=== PATIENT | female | born 1985 | race Caucasian/White ===

== ENCOUNTER 2017-03-25 23:28 | Emergency (ER) | payer SELFPAY ==
[2017-03-25 23:33] VITALS: RESP 18
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
[2017-03-26] MEDS ORDERED: CEPHALEXIN 500 MG CAP PO ONE (00:26)
[2017-03-26] MEDS ORDERED: IBUPROFEN 600 MG TAB PO ONE (00:26)
[2017-03-26] MEDS ORDERED: CEPHALEXIN 500MG PREPACK#4 BTL TAKEHOME ONE (01:25)
[2017-03-26 02:19] VITALS: BP 122/80; PULSE 88; TEMP 98.6; O2SAT 94
== END 2017-03-26 02:18 | disposition home or self-care (01) ==
DX: S69.92XA Unspecified injury of left wrist, hand and finger(s), initial encounter (principal); S30.810A Abrasion of lower back and pelvis, initial encounter; L03.119 Cellulitis of unspecified part of limb; Y04.8XXA Assault by other bodily force, initial encounter
CPT/HCPCS: L3807

== ENCOUNTER 2018-05-26 02:15 | Emergency (ER) | payer MEDICAID, OTHER ==
--- NOTE | 2018-05-26 02:23 | CPEKG ---
Heart Rate: 112 RR Interval: 536 P-R Interval: 132 QRSD Interval: 76 QT Interval: 328 QTC Interval: 448 P [place]: 59 QRS [place]: 61 T Wave [place]: 46 EKG Severity - BORDERLINE ECG - EKG Impression: SINUS TACHYCARDIA EKG Impression: PROBABLE LEFT ATRIAL ABNORMALITY Electronically Signed By: Sarah Rudolph 26-May-2018 07:45:54
[2018-05-26 04:03] LABS: PLATELET COUNT 294 10^3/uL (150-400)
[2018-05-26] MEDS ORDERED: NS 1,000 ML IV ONE (05:29)
--- NOTE | 2018-05-26 05:33 | EDPHY ---
H & P Stated Complaint: CP for one week Source: Patient - Personal History LMP (Females 10-55): 15-21 Days Ago Current Tetanus/Diphtheria Vaccine: Yes Current Tetanus Diphtheria and Acellular Pertussis (TDAP): Yes - Medical/Surgical History Hx Asthma: No Hx Chronic Respiratory Disease: No Hx Diabetes: No Hx Cardiac Disease: No Hx Renal Disease: No Hx Cirrhosis: No Hx Alcoholism: No Hx HIV/AIDS: No Hx Splenectomy or Spleen Trauma: No Other PMH: ABEBE, HYPERTHYROID, meth abuse, cleft surgery - Social History Smoking Status: Current every day smoker Time Seen by Provider: 05/26/18 05:20 HPI/ROS: HPI The patient presents with chest pain which has been present for the last 4-5 months though has been worse over the last 1 week. She describes a left-sided chest pain near her axilla which is intermittent, sharp in nature, pleuritic, and also worse when she coughs or sneezes. She before had the pain only on occasion, now she is having the pain daily. It is associated with shortness of breath. She does use meth and injects it. She used just prior to arrival. She has not had any fevers that she is aware of. REVIEW OF SYSTEMS Constitutional: No fever, no chills. Eyes: No discharge. ENT: No sore throat. Cardiovascular: Positive for chest pain, no palpitations. Respiratory: See HPI Gastrointestinal: No abdominal pain, no vomiting. Genitourinary: No hematuria. Musculoskeletal: No back pain. Skin: No rashes. Neurological: No headache. PMHx: History of hyperthyroidism, history of cholecystectomy Soc Hx: IV meth use, heavy cigarette smoker PHYSICAL General Appearance: Alert, no distress Eyes: Pupils equal and round no pallor or injection ENT, Mouth: Mucous membranes moist Respiratory: There are no retractions, lungs are clear to auscultation Cardiovascular: Tachycardic rate and regular rhythm, there is no chest wall tenderness Gastrointestinal: Abdomen is soft and non-tender, no masses, bowel sounds normal Neurological: A&O, moves all extremities Skin: Warm and dry, no rashes Musculoskeletal: Neck is supple non tender Extremities: symmetrical, full range of motion Psychiatric: Patient is oriented X 3, there is no agitation (Riguzzi,Sarah) Constitutional: Initial Vital Signs Temperature (C) 37.0 C 05/26/18 02:15 Heart Rate 125 H 05/26/18 02:15 Respiratory Rate 16 05/26/18 02:15 Blood Pressure 135/101 H 05/26/18 02:15 O2 Sat (%) 97 05/26/18 02:15 O2 Delivery Mode Room Air Allergies/Adverse Reactions: amoxicillin [From Augmentin] Allergy (Verified 05/26/18 02:24) azithromycin Allergy (Verified 05/26/18 02:24) clavulanic acid [From Augmentin] Allergy (Verified 05/26/18 02:24) Home Medications: Medication Instructions Recorded NK [No Known Home Meds] 05/26/18 Medical Decision Making - Diagnostics Imaging: I viewed and interpreted images myself - Diagnostics EKG Interpretation: EKG: Complete interpretation has been separately recorded in the [facility] archive. Summary impression: Sinus tachycardia (Sarah Rudolph) Imaging Results: Chest x-ray two views shows no effusion, no infiltrate, no cardiomegaly, interpreted by me, radiology interpretation is pending. (Sarah Rudolph) Differential Diagnosis: This is a 33-year-old female with history of methamphetamine abuse IV who presents brought in by ambulance for 1 week of worsening pleuritic, sharp, left- sided chest pain associated with shortness of breath. On arrival here, she is tachycardic though she did just used meth prior to arrival. Other vital signs are normal. She does not have any chest wall tenderness, heart and lung exams are benign. Differential diagnosis includes ACS, PE, dissection, GERD, costochondritis, pericarditis, less likely endocarditis given no fever or constitutional symptoms. In the emergency department, patient was started on IV fluids. Labs were checked. EKG and chest x-ray were unremarkable. D-dimer was positive. I placed an ultrasound-guided right-sided peripheral IJ. Plan for her to undergo CT PE protocol. At 7:00 a.m., the case is signed out to the oncoming provider Dr. Hicks. He will follow up on the patient's studies. (Sarah Rudolph) Other Provider: 07: Chest CTA shows mediastinal mass. I discussed case with radiologist, who feels this does not appear consistent with infection, much more likely to be oncologic process. I counseled patient regarding this finding and need for close outpatient follow-up extensively. I consulted our family preservation caseworker who has assisted patient in getting a follow-up PCP appointment. I think she is safe for outpatient management. (Edgar Hicks) - Data Points Laboratory Results: Laboratory Results 05/26/18 03:15 05/26/18 03:15 Medications Given: Discontinued Medications Sodium Chloride (Ns) 1,000 mls @ 0 mls/hr IV EDNOW ONE; Wide Open PRN Reason: Protocol Stop: 05/26/18 05:30 Last Admin: 05/26/18 05:48 Dose: 1,000 mls Departure - Departure Disposition: Home, Routine, Self-Care Clinical Impression: Mediastinal mass Chest pain Qualifiers: Chest pain type: unspecified Qualified Code(s): R07.9 - Chest pain, unspecified Condition: Good Additional Instructions: You have a follow up appointment scheduled for May 31 at 2:50PM with Sandy MAN at [facility]: [facility] Please arrive on time Bring any medications you are taking with you Check in at the green pod Please call chaim if you need to reschedule your appointment Referrals: NONE *PRIMARY CARE P,. [Primary Care Provider] - As per Instructions Christiano Dutton MD [Medical Doctor] - As per Instructions
[2018-05-26] MEDS ORDERED: IOPAMIDOL (ISOVUE 370) 100 ML BTL IV ONE (06:26)
[2018-05-26 10:21] VITALS: BP 114/78
--- NOTE | 2018-05-26 11:07 | ASMTCMCOM ---
CM Note CM Note Notes: Met with patient to discuss follow up care. Chart reviewed (see ER report). Patient is open about her IV drug use and tells me she has been using methamphetamine since she was 17. Patient is currently living in [place] with her who she tells me is very supportive. 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 I encouraged patient to establish a primary care provider for follow up and support. I have scheduled an appointment with MAGDA Warren at [facility] for June 09 at 2:50 PM. Patient confirms that she will make it to this appointment and has been provided contact information Date Signed: 05/26/2018 11:06 AM Electronically Signed By:Nicolasa Santamaria RN
== END 2018-05-26 10:46 | disposition home or self-care (01) ==
LOC: EDUNIT#
DX: J98.59 Other diseases of mediastinum, not elsewhere classified (principal); E86.9 Volume depletion, unspecified; F17.210 Nicotine dependence, cigarettes, uncomplicated
CPT/HCPCS: Q9967

== ENCOUNTER 2018-07-29 17:43 | Emergency (ER) | payer MEDICAID, OTHER ==
--- NOTE | 2018-07-29 18:15 | EDPHY ---
HPI/HX/ROS/PE/MDM Narrative: CHIEF COMPLAINT: Upper left chest pain HISTORY OF PRESENT ILLNESS: The patient is a 33 y/o female with a history of a mediastinal mass, cholecystectomy, and prior methamphetamine use complaining of worsening upper left chest pain, cough, fevers and night sweats. On May 26, 2 months ago, she developed chest pain and shortness of breath. Due to these symptoms she presented to the emergency department had had a chest CT which revealed a mediastinal mass. She was advised to follow up with several physicians which she has not done. Since being diagnosed with the mass, she has stopped using meth. However, she has noticed bleeding from her gums and more frequent bloody noses. She has also felt fatigued and short of breath while exerting herself. Her cough has worsened, but she denies coughing anything up. Yesterday she noticed a swollen and painful lymph node on the left side of neck. This morning she vomited once and developed a subjective low grade fever. This morning she took ibuprofen with mild relief of her symptom. She denies abdominal pain, feeling faint, heart palpitations, or sore throat. No chills, palpitations, diarrhea, urinary complaints, headache, lightheadedness. REVIEW OF SYSTEMS: Aside from elements discussed in the HPI, a comprehensive 10 system review of systems was reviewed and is negative. PAST MEDICAL HISTORY: Cholecystectomy, hyperthyroidism, cleft surgery, mediastinal mass SOCIAL HISTORY: Friend at bedside, smokes tobacco and occasionally uses marijuana, denies consuming alcohol VITAL SIGNS: Reviewed by me GENERAL: Tearful, anxious, well-developed, well-nourished, in no respiratory distress. HEENT: Atraumatic. Eyes: No icterus, no injection. Mouth: moist mucous membranes. No erythema or lesions. Neck: supple, large lymph node in left supraclavicular fossa. LUNGS: Clear to auscultation bilaterally, no wheezes, rhonchi or rales. CARDIAC: Tachycardic into the 120's, no rubs, murmurs or gallops. ABDOMEN: LUQ tenderness, soft, nondistended, bowel sounds normal. BACK: No CVA tenderness. EXTREMITIES: No trauma. No edema. Range of motion is normal throughout. NEURO: Alert and oriented, grossly nonfocal. SKIN: Warm and dry, no rash. PSYCHIATRIC: Normal mentation, no agitation. Portions of this note were transcribed by a medical records specialist. I personally performed a history, physical exam, medical decision making, and confirmed accuracy of information the transcribed note. ED Course: The patient is a 33 y/o female with a history of a mediastinal mass, cholecystectomy, and prior methamphetamine use complaining of worsening upper left chest pain, cough, fevers, night sweats, and vomiting. On exam she has a large lymph node sitting in left supraclavicular fossa as well as left upper quadrant tenderness. Labs, EKG, and chest x-ray ordered; 1L IV NS administered. 1928: 12-LEAD EKG: Please see the full report in [facility]. My interpretation: Sinus tachycardia with a rate of 108, borderline T wave abnormalities. 1954: I spoke with the radiologist who reports that the patient's chest x-ray reveals a left lower lobe pneumonia and a pleural effusion. Mediastinal mass appears unchanged from prior studies. 750mg PO Levaquin administered. 2009: Reassessed patient and discussed laboratory and imaging studies. She reports ongoing discomfort the left upper chest. 30mg IV Toradol and 1L IV NS administered. 2034: I consulted with the Sandy Melchor, the on-call physician at [facility] , regarding this patient. They will see patient in follow-up for both the mediastinal mass as well as for the pneumonia. 2044: Reassessed patient and discussed follow up with [facility]. I have advised her to use Tylenol and ibuprofen. I have also prescribed her Albuterol and Levaquin. Return precautions provided; patient is comfortable with this plan. MDM: Differential diagnosis for the patient's shortness of breath was considered including but not limited to pulmonary infectious processes, asthma exacerbation , cardiac causes, pulmonary emboli, pulmonary edema, congestive heart failure. - Data Points Imaging Results: CXR: Impression: 1. Patchy infiltrate left lower lobe or small left pleural effusion suspicious for pneumonia. 2. Large mediastinal mass, similar to previous exam. Dictated By: Sebastian Mathis MD Imaging: Discussed imaging studies w/ doubler helper Radiologist, I viewed and interpreted images myself Laboratory Results: Laboratory Results 07/29/18 19:10 07/29/18 19:10 Medications Given: Discontinued Medications Sodium Chloride (Ns) 1,000 mls @ 0 mls/hr IV EDNOW ONE; Wide Open PRN Reason: Protocol Stop: 07/29/18 18:33 Last Admin: 07/29/18 19:25 Dose: 1,000 mls Sodium Chloride (Ns) 1,000 mls @ 0 mls/hr IV ONCE ONE PRN Reason: Wide Open Stop: 07/29/18 20:23 Last Admin: 07/29/18 20:30 Dose: 1,000 mls Ketorolac Tromethamine (Toradol) 30 mg IVP ONCE ONE Stop: 07/29/18 20:30 Last Admin: 07/29/18 20:31 Dose: 30 mg Levofloxacin (Levaquin) 750 mg PO EDNOW ONE PRN Reason: Protocol Stop: 07/29/18 20:18 Last Admin: 07/29/18 20:30 Dose: 750 mg Point of Care Test Results: Chemistry 07/29/18 19:33 POC Troponin I 0.03 ng/mL ng/mL (0.00-0.08) General Time Seen by Provider: 07/29/18 17:58 Initial Vital Signs: Initial Vital Signs Temperature (C) 37.1 C 07/29/18 17:49 Heart Rate 132 H 07/29/18 17:49 Respiratory Rate 16 07/29/18 17:49 Blood Pressure 137/110 H 07/29/18 17:49 O2 Sat (%) 96 07/29/18 17:49 O2 Delivery Mode Room Air O2 (L/minute) 2 Allergies/Adverse Reactions: amoxicillin [From Augmentin] Allergy (Verified 07/29/18 17:49) azithromycin Allergy (Verified 07/29/18 17:49) clavulanic acid [From Augmentin] Allergy (Verified 07/29/18 17:49) Home Medications: Medication Instructions Recorded Albuterol [Proventil Inhaler HFA 1 - 2 puffs IH Q4H #1 mdi 07/29/18 (*)] Ibuprofen 07/29/18 Ibuprofen 600 mg PO TID #20 tablet 07/29/18 levOFLOXACIN [Levofloxacin] 750 mg PO DAILY #7 tablet 07/29/18 Departure - Departure Disposition: Home, Routine, Self-Care Clinical Impression: Pleural effusion, Mediastinal mass Pneumonia Qualifiers: Pneumonia type: due to unspecified organism Laterality: left Lung location: lower lobe of lung Qualified Code(s): J18.1 - Lobar pneumonia, unspecified organism Condition: Good Instructions: Pleural Effusion (ED), Pneumonia (ED) Additional Instructions: Follow up with [facility]. I spoke with a provider at [facility] and they are aware of your CT findings including the mediastinal mass and your pneumonia. They are expecting a call from you in order to arrange further evaluation. You may use ibuprofen 600 mg tablets up to 3 times a day for chest discomfort. You been given a prescription for an albuterol meter dose inhaler. Please use this as needed to help control your cough. This will also help with any wheezing. Please take Tylenol as needed for any fevers. Return to the emergency department or seek care urgently if your worsening despite the above treatments, especially if you develop high fevers not responsive to Tylenol or ibuprofen, coughing significantly, shortness of breath , vomiting, or other concerns. Referrals: [facility],. [Clinic] - As per Instructions Prescriptions: Albuterol [Proventil Inhaler HFA (*)] 1 - 2 puffs IH Q4H #1 mdi Ibuprofen 600 mg PO TID #20 tablet levOFLOXACIN [Levofloxacin] 750 mg PO DAILY #7 tablet Report Scribed for: Candie Murray Report Scribed by: Nuvia Cuevas Date of Report: 07/29/18 Time of Report: 18:15
[2018-07-29] MEDS ORDERED: NS 1,000 ML IV ONE ×2 (18:32→20:22)
[2018-07-29 19:24] LABS: PLATELET COUNT 311 10^3/uL (150-400)
[2018-07-29] MEDS ORDERED: KETOROLAC 30 MG/1 ML SDV ONE (20:28)
[2018-07-29] MEDS ORDERED: KETOROLAC 30 MG/1 ML SDV IVP ONE (20:29)
[2018-07-29 21:01] VITALS: BP 114/78
--- NOTE | 2018-07-30 00:02 | CPEKG ---
Test Reason : OPEN Blood Pressure : / mmHG Vent. Rate : 108 BPM Atrial Rate : 108 BPM P-R Int : 146 ms QRS Dur : 082 ms QT Int : 340 ms P-R-T Axes : 060 065 042 degrees QTc Int : 456 ms Sinus tachycardia Borderline T wave abnormalities Confirmed by Candie Murray ([id number]) on 07/30/2018 12:01:18 AM Referred By: Confirmed By:Candie Murray
== END 2018-07-29 21:02 | disposition home or self-care (01) ==
DX: J18.9 Pneumonia, unspecified organism (principal); F17.210 Nicotine dependence, cigarettes, uncomplicated; E03.9 Hypothyroidism, unspecified
CPT/HCPCS: 84484-PO; 96374; J1885

== ENCOUNTER → 2018-08-23 | Outpatient (CLI) | payer MEDICAID ==
[~2018-08-23] MED LIST: LIDOCAINE 1% 300 MG/30 ML SDV ONE
== END ==
LOC: FIMAGING 11:54
PROVIDERS: ATTEND Internal Medicine Hematology & Oncology
PROC: 07B23ZX Excision of Left Neck Lymphatic, Percutaneous Approach, Diagnostic (ICD-10-PCS; principal; 2018-08-23)
DX: C81.11 Nodular sclerosis Hodgkin lymphoma, lymph nodes of head, face, and neck (principal)
CPT/HCPCS: 88184-90; 88185-91

== ENCOUNTER → 2018-09-13 | Day surgery (SDC) | payer MEDICAID | LOC: FIMAGING 08:50 | PROVIDERS: ATTEND Internal Medicine Hematology & Oncology | DX: C81.02 Nodular lymphocyte predominant Hodgkin lymphoma, intrathoracic lymph nodes (principal) | CPT/HCPCS: 36569; 76937; 77001; C1751 ==

== ENCOUNTER 2018-09-17 07:33 | Emergency (ER) | payer MEDICAID ==
--- NOTE | 2018-09-17 07:37 | EDPHY ---
HPI/HX/ROS/PE/MDM Narrative: CHIEF COMPLAINT: Hematemesis HPI: This patient is a 33 year old female with history of stage IV Hodgkin's lymphoma. She arrives via EMS following one episode of hematemesis with bright red blood [facility] about 55 minutes prior to arrival. The patient states she did not note a "significant amount" of blood, but its presence concerned her enough to seek care. She has not had any further episodes of hematemesis. She denies hematochezia or melena. She denies ever having gastrointestinal bleeding in the past. The patient is due to start chemotherapy for Hodgkin's lymphoma in the next week. She denies any fever, chest pain, shortness of breath, diarrhea, urinary complaints, or other associated symptoms. REVIEW OF SYSTEMS: A comprehensive 10 system review of systems is otherwise negative aside from elements mentioned in the history of present illness and medical decision making. PMH: Stage IV Hodgkin's lymphoma. Hyperthyroid. History of IV drug abuse (last in 04/2018). Hepatitis C. SOCIAL HISTORY: Transient. Single. Lives in [place]. PHYSICAL EXAM: General:Patient is alert, in no acute distress. ENT:Eyes are normal to inspection. ENT inspection normal. Neck: Normal inspection. Full range of motion. Respiratory:No respiratory distress. Breath sounds normal bilaterally. Cardiovascular: Regular rate and rhythm. Strong peripheral pulses. Normal cap refill. Abdomen:The abdomen is nontender to palpation. There are no peritoneal signs. There are normal bowel sounds. Back: Normal to inspection. No tenderness to palpation. Skin: Normal color. No rash. Warm and dry. Extremities: RUE PICC placed. Normal appearance. Full range of motion. Neuro: Oriented x3. Normal motor function. Normal sensory function. ED Course: This patient is a 33 year old female with Hodgkin's lymphoma who presents following one episode of vomiting with a small amount of associated blood. Exam largely unremarkable. Plan for labs including CBC with manual diff, chemistries , and coag panel. Labs largely unremarkable. Plan for PO challenge. If she tolerates this well, plan to discharge home in good condition. She is currently feeling well. Patient tolerated PO challenge. Plan to discharge home as above. Follow up and return precautions discussed. She is comfortable with this plan. MDM: This patient presents with a single episode of vomiting which she describes as containing a small amount of blood. She denies any stool changes or abdominal pain. Exam, vitals and Hct are normal here in the ED - she has had no further episodes of vomiting in the ED and is tolerating PO without difficulty. Clearly she is at elevated risk for complication given lymphoma, but I see no sign of coagulation abnormality or anemia. I think she is safe for discharge and close outpatient follow-up. - Data Points Laboratory Results: Laboratory Results 09/17/18 07:56 09/17/18 07:56 09/17/18 09/17/18 09/17/18 07:56 07:56 07:56 WBC 5.38 10^3/uL 10^3/uL (3.80-9.50) RBC 3.99 10^6/uL L 10^6/uL (4.18-5.33) Hgb 11.7 g/dL L g/dL (12.6-16.3) Hct 35.4 % L % (38.0-47.0) MCV 88.7 fL fL (81.5-99.8) MCH 29.3 pg pg (27.9-34.1) MCHC 33.1 g/dL g/dL (32.4-36.7) RDW 13.2 % % (11.5-15.2) Plt Count 343 10^3/uL 10^3/uL (150-400) MPV 9.1 fL fL (8.7-11.7) Neut % (Auto) Not Reported Lymph % (Auto) Not Reported [place] % (Auto) Not Reported Eos % (Auto) Not Reported Baso % (Auto) Not Reported Nucleat RBC Rel Count Not Reported Absolute Neuts (auto) Not Reported Absolute Lymphs (auto) Not Reported Absolute Monos (auto) Not Reported Absolute Eos (auto) Not Reported Absolute Basos (auto) Not Reported Absolute Nucleated RBC Not Reported Immature Gran % Not Reported Seg Neutrophils % 82.0 % % Band Neutrophils % 0.0 % % Lymphocytes % 7.0 % % Monocytes % 6.0 % % Eosinophils % 4.0 % % Basophils % 0.0 % % Metamyelocytes % 0.0 % % Myelocytes % 1.0 % % Promyelocytes % 0.0 % % Blast Cells % 0.0 % % Immature Gran # Not Reported Absolute Seg Neuts 4.41 10^3/uL 10^3/uL (1.70-6.50) Absolute Band Neuts 0.00 10^3/uL 10^3/uL (0.00-0.70) Absolute Lymphocytes 0.38 10^3/uL L 10^3/uL (1.00-3.00) Absolute Monocytes 0.32 10^3/uL 10^3/uL (0.30-0.80) Absolute Eosinophils 0.22 10^3/uL 10^3/uL (0.03-0.40) Absolute Basophils 0.00 10^3/uL L 10^3/uL (0.02-0.10) Absolute Metamyelocyte 0.00 10^3/mL 10^3/mL (0.00-0.00) Absolute Myelocytes 0.05 10^3/mL H 10^3/mL (0.00-0.00) Absolute Promyelocytes 0.00 10^3/uL 10^3/uL (0.00-0.00) Absolute Plasma Cells 0.00 10^3/uL 10^3/uL (0.00-0.00) Nucleated RBCs 0 /100 WBC /100 WBC (0-0) RBC/WBC/PLT Morphology NORMAL (NORMAL) Absolute Blast Cells 0.00 10^3/uL 10^3/uL (0.00-0.00) Plasma Cells % 0.0 % % Platelet Estimate ADEQUATE (ADEQ) PT 13.6 SEC SEC (12.0-15.0) INR 1.02 (0.83-1.16) APTT 25.2 SEC SEC (23.0-38.0) Sodium 140 mEq/L mEq/L (135-145) Potassium 4.0 mEq/L mEq/L (3.3-5.0) Chloride 109 mEq/L mEq/L (97-110) Carbon Dioxide 20 mEq/l L mEq/l (22-31) Anion Gap 11 mEq/L mEq/L (6-14) BUN 18 mg/dL mg/dL (7-23) Creatinine 0.7 mg/dL mg/dL (0.6-1.0) Estimated GFR > 60 Glucose 136 mg/dL H mg/dL (70-100) Calcium 9.0 mg/dL mg/dL (8.5-10.4) General Time Seen by Provider: 10/27/18 07:36 Initial Vital Signs: Initial Vital Signs Temperature (C) 36.9 C 09/17/18 07:39 Heart Rate 117 H 09/17/18 07:39 Respiratory Rate 16 09/17/18 07:39 Blood Pressure 138/88 H 09/17/18 07:39 O2 Sat (%) 94 09/17/18 07:39 O2 Delivery Mode Room Air Allergies/Adverse Reactions: amoxicillin [From Augmentin] Allergy (Verified 09/17/18 07:45) azithromycin Allergy (Verified 09/17/18 07:45) clavulanic acid [From Augmentin] Allergy (Verified 09/17/18 07:45) Home Medications: Medication Instructions Recorded Albuterol [Proventil Inhaler HFA 1 - 2 puffs IH Q4H #1 mdi 07/29/18 (*)] Ibuprofen 07/29/18 Ibuprofen 600 mg PO TID #20 tablet 07/29/18 levOFLOXACIN [Levofloxacin] 750 mg PO DAILY #7 tablet 07/29/18 Departure - Departure Disposition: Home, Routine, Self-Care Clinical Impression: Vomiting Condition: Good Instructions: Acute Nausea and Vomiting (ED) Additional Instructions: Follow up with your primary care provider. Return to the emergency department for fever, uncontrollable vomiting or diarrhea, blood in your vomit or stool, dark tarry stools, weakness, chest pain , shortness of breath, or other worsening of condition. Referrals: [facility],. [Clinic] - As per Instructions Dc Hair MD [[facility] [place]] - As per Instructions Report Scribed for: Edgar Hicks Report Scribed by: Seema Orozco Date of Report: 09/17/18 Time of Report: 07:36 Physician Review and Approval Statement: Portions of this note were transcribed by an ED scribe. I personally performed the history, physical exam, and medical decision making; and confirm the accuracy of the information in the transcribed note.
[2018-09-17 08:17] LABS: PLATELET COUNT 343 10^3/uL (150-400)
[2018-09-17 08:25] LABS: INR 1.02 (0.83-1.16); PROTIME(PATIENT) 13.6 SEC (12.0-15.0)
[2018-09-17 09:27] VITALS: BP 138/100
== END 2018-09-17 09:26 | disposition home or self-care (01) ==
LOC: EDUNIT#
DX: R11.10 Vomiting, unspecified (principal); C85.90 Non-Hodgkin lymphoma, unspecified, unspecified site; E03.9 Hypothyroidism, unspecified; B19.20 Unspecified viral hepatitis C without hepatic coma; Z59.0 Homelessness

== ENCOUNTER 2018-12-15 14:25 | Inpatient (IN) | payer MEDICAID ==
[2018-12-15] MEDS ORDERED: NS 2,400 ML IV ONE (14:40)
--- NOTE | 2018-12-15 14:44 | EDPHY ---
H & P Stated Complaint: body aches, cough Time Seen by Provider: 12/15/18 14:30 HPI/ROS: CHIEF COMPLAINT: Body aches, chills, dry, HISTORY OF PRESENT ILLNESS: The patient is a 33-year-old homeless female recently diagnosed with stage IV Hodgkin's lymphoma currently receiving chemotherapy. She missed her most recent round of chemotherapy so her last dose was about a month ago. She is followed by Dr. Stacy. She also has a PICC line in place and history of IV drug abuse. This morning she woke up and noticed that the cap of the PICC line was off. 2 days ago she developed body aches chills and sweats. Mild dry cough, no shortness of breath. No chest pain. No nausea vomiting or diarrhea. No urinary symptoms. No rashes. No upper respiratory symptoms. She denies recent drug use or any misuse of the PICC line. Severity: Moderate Modifying factors: None REVIEW OF SYSTEMS: Constitutional: See HPI EENTM: denies: blurred vision, double vision, nose congestion Respiratory: denies: cough, shortness of breath Cardiac: denies: chest pain, irregular heart rate, lightheadedness, palpitations Gastrointestinal/Abdominal: denies: abdominal pain, diarrhea, nausea, vomiting, blood streaked stools Genitourinary: denies: dysuria, frequency, hematuria, pain Musculoskeletal: See HPI Skin: denies: lesions, rash, jaundice, bruising Neurological: denies: headache, numbness, paresthesia, tingling, dizziness, weakness Hematologic/Lymphatic: denies: blood clots, easy bleeding, easy bruising Immunologic/allergic: denies: HIV/AIDS, transplant 10 systems reviewed and negative except as noted EXAM: GENERAL: Moderate distress. Tachycardic and febrile HEAD: Atraumatic, normocephalic. EYES: Pupils equal round and reactive to light, extraocular movements intact, sclera anicteric, conjunctiva are normal. ENT: TMs normal, nares patent, oropharynx clear without exudates. Moist mucous membranes. NECK: Normal range of motion, supple without lymphadenopathy or JVD. LUNGS: Breath sounds clear to auscultation bilaterally and equal. No wheezes rales or rhonchi. HEART: Tachycardic, Regular rate and rhythm without murmurs, rubs or gallops. ABDOMEN: Soft, nontender, normoactive bowel sounds. No guarding, no rebound. No masses appreciated. BACK: No CVA tenderness, no spinal tenderness, step-offs or deformities EXTREMITIES: Normal range of motion, no pitting or edema. No clubbing or cyanosis. NEUROLOGICAL: Cranial nerves II through XII grossly intact. Normal speech, normal gait. 5/5 strength, normal movement in all extremities, normal sensation , normal reflexes PSYCH: Normal mood, normal affect. SKIN: The bandage around her PICC line is very dirty and the cap is missing from the PICC line. The skin however is not erythematous or tender or irritated. Warm, dry, normal turgor, no visible rashes or lesions. Source: Patient Exam Limitations: No limitations - Personal History LMP (Females 10-55): 1-7 Days Ago Current Tetanus Diphtheria and Acellular Pertussis (TDAP): Yes - Medical/Surgical History Hx Asthma: No Hx Chronic Respiratory Disease: No Hx Diabetes: No Hx Cardiac Disease: No Hx Renal Disease: No Hx Cirrhosis: No Hx Alcoholism: No Hx HIV/AIDS: No Hx Splenectomy or Spleen Trauma: No Other PMH: ABEBE, HYPERTHYROID, meth abuse, cleft surgery, mediastinal mass, Former IV drug use(last use 4 months ago 04/2018) Hep C Hodgekins Lymphoma - Family History Significant Family History: No pertinent family hx - Social History Smoking Status: Current every day smoker Alcohol Use: Sober Constitutional: Initial Vital Signs Temperature (C) 37.7 C 12/15/18 14:30 Heart Rate 141 H 12/15/18 14:30 Respiratory Rate 18 12/15/18 14:30 Blood Pressure 107/69 12/15/18 14:30 O2 Sat (%) 97 12/15/18 14:30 O2 Delivery Mode Room Air Allergies/Adverse Reactions: amoxicillin [From Augmentin] Allergy (Verified 09/17/18 07:45) azithromycin Allergy (Verified 09/17/18 07:45) clavulanic acid [From Augmentin] Allergy (Verified 09/17/18 07:45) Home Medications: Medication Instructions Recorded Docusate Sodium [Stool Softener] 100 mg PO DAILY PRN 12/15/18 Entecavir [Baraclude] 0.5 mg PO DAILY 12/15/18 Ibuprofen [Motrin (*)] 600 mg PO Q6H PRN 12/15/18 Ondansetron Odt [Zofran Odt 4 mg 4 mg PO Q4 PRN 12/15/18 (*)] Medical Decision Making - Diagnostics Imaging: Discussed imaging studies w/ call center support consultant Radiologist ED Course/Re-evaluation: The patient is concerning for sepsis. She is tachycardic. Will obtain blood cultures including a set from the PICC line. Will not use the PICC line until cultures are returned. Patient was initially refusing other attempts at IV but ultimately agreed to with the use of the ultrasound machine. 4 p.m. Discussed lab results. Patient is being hydrated and will repeat lactate. She has received the fluid bolus. I have ordered Levaquin and Rocephin. She states she does have some slight urinary discomfort. She remains tachycardic but improving. Discussed the case with Dr. Hassan who will admit. She has had an anaphylactic reaction to amoxicillin but has had Keflex multiple times without difficulty. Differential Diagnosis: Partial list of the Differential diagnosis considered include but were not limited to; sepsis, urinary tract infection, infected line and although unlikely based on the history and physical exam, I also considered cellulitis, pneumonia, meningitis. - Data Points Laboratory Results: Laboratory Results 12/15/18 14:45 12/15/18 14:45 12/15/18 14:46 Hep Bs Antigen NEGATIVE (NEGATIVE) Hep B Core Total Ab NEGATIVE (NEGATIVE) Microbiology Results: MICROBIOLOGY 12/15/18 14:45 Blood Blood Culture - Preliminary Staphylococcus Aureus 12/15/18 14:45 Blood Blood Panel (PCR) - Final S.aureus Methicillin Suscept. 12/15/18 15:02 Blood Blood Culture - Preliminary Gram Positive Cocci Clusters Medications Given: Acetaminophen (Tylenol) 650 mg PO Q4HRS PRN PRN Reason: Pain, Mild/Fever, Can Take PO Stop: 06/13/19 16:24 Last Admin: 12/15/18 17:02 Dose: 650 mg Hydrocodone Bitart/Acetaminophen ([place] 5/325) 1 - 2 tab PO Q4HRS PRN PRN Reason: Pain, Moderate Able to Take PO Stop: 12/25/18 16:24 Last Admin: 12/16/18 07:24 Dose: 2 tab Enoxaparin Sodium (Lovenox) 40 mg SC DAILY TOMMIE Stop: 06/14/19 08:59 Last Admin: 12/16/18 07:35 Dose: 40 mg Cefazolin Sodium/Dextrose (Ancef) 100 mls @ 200 mls/hr IV Q8H TOMMIE PRN Reason: Protocol Stop: 01/15/19 11:59 Last Admin: 12/16/18 12:15 Dose: 100 mls Ketorolac Tromethamine (Toradol) 30 mg IVP Q6HRS PRN PRN Reason: Pain, Moderate Stop: 12/21/18 08:59 Last Admin: 12/16/18 13:05 Dose: 30 mg Lorazepam (Ativan) 0.5 - 1 mg PO Q8HRS PRN PRN Reason: Anxiety, Able to Take PO Stop: 06/13/19 16:24 Last Admin: 12/16/18 07:33 Dose: 1 mg Miscellaneous Medication (Entecavir [Baraclude]) 0.5 mg PO DAILY [facility] Stop: 06/14/19 08:59 Last Admin: 12/16/18 09:29 Dose: Not Given Nicotine (Nicoderm Cq) 21 mg TD DAILY TOMMIE Stop: 06/13/19 16:29 Last Admin: 12/16/18 07:35 Dose: 21 mg Discontinued Medications Sodium Chloride (Ns) 2,400 mls @ 4,800 mls/hr 30 ml/kg infuse over 30 min ( 2400 ml) IV EDNOW ONE PRN Reason: Protocol Stop: 12/15/18 15:09 Last Admin: 12/15/18 15:08 Dose: 2,400 mls Ceftriaxone Sodium/Dextrose (Rocephin 1 Gm (Premix)) 50 mls @ 100 mls/hr IV EDNOW ONE PRN Reason: Protocol Stop: 12/15/18 16:28 Last Admin: 12/15/18 16:06 Dose: 50 mls Levofloxacin/Dextrose (Levaquin 750 Mg (Premix)) 150 mls @ 100 mls/hr IV EDNOW ONE PRN Reason: Protocol Stop: 12/15/18 17:28 Last Admin: 12/15/18 16:27 Dose: 150 mls Sodium Chloride (Ns) 1,000 mls @ 125 mls/hr IV CONT TOMMIE Stop: 06/13/19 16:29 Last Admin: 12/16/18 03:04 Dose: 1,000 mls Vancomycin/Sodium Chloride (Vancomycin 1 Gm (Premix)) 250 mls @ 250 mls/hr IV ONCE ONE PRN Reason: Protocol Stop: 12/15/18 18:36 Last Admin: 12/15/18 18:29 Dose: 250 mls Vancomycin HCl 1.25 gm/ Sodium (Chloride) 250 mls @ 166.667 mls/hr IV Q12H TOMMIE Stop: 01/15/19 05:59 Last Admin: 12/16/18 05:53 Dose: 250 mls Ibuprofen (Motrin) 600 mg PO EDNOW ONE Stop: 12/15/18 15:34 Last Admin: 12/15/18 15:36 Dose: 600 mg Oxycodone HCl (Oxycodone Ir) 5 - 10 mg PO Q3HRS PRN PRN Reason: Pain, Severe Able to Take PO Stop: 12/25/18 16:24 Last Admin: 12/16/18 06:02 Dose: 5 mg Departure - Departure Disposition: [facility] Inpatient Acute Clinical Impression: Sepsis Qualifiers: Sepsis type: sepsis due to unspecified organism Qualified Code(s): A41.9 - Sepsis, unspecified organism Urinary tract infection Qualifiers: Urinary tract infection type: site unspecified Hematuria presence: without hematuria Qualified Code(s): N39.0 - Urinary tract infection, site not specified Condition: Fair
[2018-12-15 15:06] LABS: INR 1.19 (0.83-1.16); PROTIME(PATIENT) 15.3 SEC (12.0-15.0)
[2018-12-15 15:31] LABS: PLATELET COUNT 108 10^3/uL (150-400)
[2018-12-15] MEDS ORDERED: IBUPROFEN 600 MG TAB PO ONE (15:33)
[2018-12-15] MEDS ORDERED: ONDANSETRON DISINTEGRATING 4 MG TAB PO PRN (16:25)
[2018-12-15] MEDS ORDERED: PROMETHAZINE HCL 25 MG/ML INJ IVP PRN (16:25)
[2018-12-15] MEDS ORDERED: HYDROmorphONE/DILAUDID 1 MG/ML INJ IVP PRN (16:25)
[2018-12-15] MEDS ORDERED: NICOTINE POLACRILEX 2 MG GUM B PRN (16:25)
[2018-12-15] MEDS ORDERED: ALBUTEROL 3 ML DEYVIAL IH PRN (16:25)
[2018-12-15] MEDS ORDERED: ACETAMINOPHEN 325 MG TAB PO PRN (16:25)
[2018-12-15] MEDS ORDERED: oxyCODONE IR 5 MG TAB PO PRN (16:25)
[2018-12-15] MEDS ORDERED: ONDANSETRON 4 MG/2 ML VIAL IVP PRN (16:25)
[2018-12-15] MEDS ORDERED: LORazepam 2 MG/ML INJ IVP PRN (16:25)
--- NOTE | 2018-12-15 16:58 | PDGENHP ---
History and Physical - Chief Complaint 'feeling sick' - History of Present Illness 33 yo F with PMH of Hodgkins lymphoma diagnosed in August of last year with known large superior mediastinal mass presenting with complaints of generally feeling ill for the last couple of days. Patient was initially being treated here for her lymphoma but then had insurance issues and changed her care to [facility]. She was started on ABVD but only completed one round before having again insurance issues that have led to her now not getting treatment anywhere for over a month. She has had a PICC in place since August, almost exactly 3 months, and has not used it in over a month. She notes that the cap of the PICC came off and she has not had the proper bandages so she is using duct tape to cover it. She has had increased pain under her left armpit for the last couple of days that she states is at times severe, but no mass there that she can feel. She has had some sob and her boyfriend has noticed that her breathing seems erratic at times. She has bilateral hip pain that she has never had before. She denies any abdominal pain, n/v/diarrhea. She does not have regular BMs but when she does have them they are soft. She has not had any urinary pain or urgency. She notes she does have a hx of hepatitis C and prior IV drug use but adamantly denies ever using her PICC to shoot drugs. She admits that she continues to use meth but states she only smokes it and her last use was about 3 weeks ago. She was homeless until recently. History Information - Allergies/Home Medication List Allergies/Adverse Reactions: amoxicillin [From Augmentin] Allergy (Verified 09/17/18 07:45) azithromycin Allergy (Verified 09/17/18 07:45) clavulanic acid [From Augmentin] Allergy (Verified 09/17/18 07:45) Home Medications: Docusate Sodium [Stool Softener] 100 mg PO DAILY PRN 12/15/18 [Last Taken Unknown] Entecavir [Baraclude] 0.5 mg PO DAILY 12/15/18 [Last Taken 3 Weeks Ago ~11/24/18 ] Ibuprofen [Motrin (*)] 600 mg PO Q6H PRN 12/15/18 [Last Taken 12/15/18] Ondansetron Odt [Zofran Odt 4 mg (*)] 4 mg PO Q4 PRN 12/15/18 [Last Taken Unknown] I have personally reviewed and updated: family history, medical history, social history, surgical history - Past Medical History cancer (Hodgkins lymphoma with superior mediastinal mass and LN involvment) Additional medical history: hyperthyroid in . ovarian cyst. hepatitis C and B - Surgical History Reports: cholecystectomy Additional surgical history: cleft palate - Family History Positive for: non-pertinent - Social History Smoking Status: Current every day smoker Alcohol Use: Sober Drug Use: Other (methamphetamine) Additional social history: homeless until recently, lives with BF Review of Systems Review of Systems: ROS: 10pt was reviewed & negative except for what was stated in HPI & below Physical Exam Physical Exam: Temp Pulse Resp BP Pulse Ox 37.5 C 124 H 18 102/61 98 12/15/18 16:51 12/15/18 16:51 12/15/18 16:51 12/15/18 16:51 12/15/18 16:51 Constitutional: appears nourished, uncomfortable Eyes: PERRL, anicteric sclera Ears, Nose, Mouth, Throat: moist mucous membranes, hearing normal, poor dentition Cardiovascular: no murmur, rub, or gallop, tachycardia, No edema Respiratory: no respiratory distress, no rales or rhonchi Gastrointestinal: normoactive bowel sounds, soft, non-tender abdomen Genitourinary: no bladder tenderness Skin: warm, normal color, other (PICC in place with dirty bandage, no cap) Musculoskeletal: no muscle tenderness Neurologic: AAOx3 Psychiatric: interacting appropriately, not anxious, not encephalopathic Lab Data & Imaging Review 12/15/18 14:45 12/15/18 14:45 WBC 6.94 10^3/uL (3.80-9.50) 12/15/18 14:45 RBC 4.11 10^6/uL (4.18-5.33) L 12/15/18 14:45 Hgb 12.8 g/dL (12.6-16.3) 12/15/18 14:45 Hct 37.5 % (38.0-47.0) L 12/15/18 14:45 MCV 91.2 fL (81.5-99.8) 12/15/18 14:45 MCH 31.1 pg (27.9-34.1) 12/15/18 14:45 MCHC 34.1 g/dL (32.4-36.7) 12/15/18 14:45 RDW 14.1 % (11.5-15.2) 12/15/18 14:45 Plt Count 108 10^3/uL (150-400) L 12/15/18 14:45 MPV 10.5 fL (8.7-11.7) 12/15/18 14:45 Neut % (Auto) 84.8 % (39.3-74.2) H 12/15/18 14:45 Lymph % (Auto) 4.5 % (15.0-45.0) L 12/15/18 14:45 [place] % (Auto) 7.6 % (4.5-13.0) 12/15/18 14:45 Eos % (Auto) 2.0 % (0.6-7.6) 12/15/18 14:45 Baso % (Auto) 0.4 % (0.3-1.7) 12/15/18 14:45 Nucleat RBC Rel Count 0.0 % (0.0-0.2) 12/15/18 14:45 Absolute Neuts (auto) 5.88 10^3/uL (1.70-6.50) 12/15/18 14:45 Absolute Lymphs (auto) 0.31 10^3/uL (1.00-3.00) L 12/15/18 14:45 Absolute Monos (auto) 0.53 10^3/uL (0.30-0.80) 12/15/18 14:45 Absolute Eos (auto) 0.14 10^3/uL (0.03-0.40) 12/15/18 14:45 Absolute Basos (auto) 0.03 10^3/uL (0.02-0.10) 12/15/18 14:45 Absolute Nucleated RBC 0.00 10^3/uL (0-0.01) 12/15/18 14:45 Immature Gran % 0.7 % (0.0-1.1) 12/15/18 14:45 Immature Gran # 0.05 10^3/uL (0.00-0.10) 12/15/18 14:45 PT 15.3 SEC (12.0-15.0) H 12/15/18 14:45 INR 1.19 (0.83-1.16) H 12/15/18 14:45 APTT 28.6 SEC (23.0-38.0) 12/15/18 14:45 VBG Lactic Acid 1.8 mmol/L (0.7-2.1) 12/15/18 16:30 Sodium 133 mEq/L (135-145) L 12/15/18 14:45 Potassium 3.6 mEq/L (3.5-5.2) 12/15/18 14:45 Chloride 104 mEq/L (97-110) 12/15/18 14:45 Carbon Dioxide 21 mEq/l (22-31) L 12/15/18 14:45 Anion Gap 8 mEq/L (6-14) 12/15/18 14:45 BUN 13 mg/dL (7-23) 12/15/18 14:45 Creatinine 0.7 mg/dL (0.6-1.0) 12/15/18 14:45 Estimated GFR > 60 12/15/18 14:45 Glucose 134 mg/dL (70-100) H 12/15/18 14:45 Calcium 8.7 mg/dL (8.5-10.4) 12/15/18 14:45 Total Bilirubin 0.7 mg/dL (0.1-1.4) 12/15/18 14:45 Urine Color YELLOW 12/15/18 14:45 Urine Appearance MODERATELY TURBID 12/15/18 14:45 Urine pH 5.0 (5.0-7.5) 12/15/18 14:45 Ur Specific [place] 1.016 (1.002-1.030) 12/15/18 14:45 Urine Protein 1+ (NEGATIVE) H 12/15/18 14:45 Urine Ketones NEGATIVE (NEGATIVE) 12/15/18 14:45 Urine Blood NEGATIVE (NEGATIVE) 12/15/18 14:45 Urine Nitrate NEGATIVE (NEGATIVE) 12/15/18 14:45 Urine Bilirubin NEGATIVE (NEGATIVE) 12/15/18 14:45 Urine Urobilinogen 4.0 EU (0.2-1.0) H 12/15/18 14:45 Ur Leukocyte Esterase NEGATIVE (NEGATIVE) 12/15/18 14:45 Urine RBC 1-3 /hpf (0-3) 12/15/18 14:45 Urine WBC 5-10 /hpf (0-3) H 12/15/18 14:45 Ur Epithelial Cells 1+ /lpf (NONE-1+) 12/15/18 14:45 Urine Bacteria TRACE /hpf (NONE SEEN) H 12/15/18 14:45 Urine Mucus TRACE /lpf (NONE-1+) 12/15/18 14:45 Urine Glucose 1+ (NEGATIVE) H 12/15/18 14:45 Nasal Influenza A PCR NEGATIVE FOR FLU A (NEGATIVE) 12/15/18 14:45 Nasal Influenza B PCR NEGATIVE FOR FLU B (NEGATIVE) 12/15/18 14:45 Visualized and Interpreted Chest x-ray results: Yes Chest X-Ray results: no infiltrate Assessment & Plan Assessment: Sepsis (Acute) Urinary tract infection (Acute) 33 yo w/hx of IVDA, hep C presenting with tachycardia, chest and body pain as well as a dirty appearing PICC line # chest pain: with associated tachycardia and known large superior mediastinal mass that on chest xray appears to be smaller than prior. Will get CTA to eval mass further particularly given associated pain and to rule out PE. Pain meds as needed. # Hodgkins lymphoma: patient initiated treatment at however has not been able to continue and only completed one round of chemo per her report, now is to be followed by [facility] and have requested that they consult in the morning, ct of the chest ordered as above. ABVD chemo can be associated with both pulmonary and cardio toxicity though given short course this seems unlikely. PICC has been in x 3 months and is dirty appearing, removed. Will need new PICC prior to starting chemo again, can be done during this stay so long as cultures negative. # PICC contamination: will send for culture, appears dirty on the outside and the cap is missing but there are no skin signs of infection, patient denies injecting into the PICC, will monitor cultures, given ctx in ER, will give a one time vanco dose pending culture data # tachycardia: sinus tach, seems most c/w infectious etiology but wbc wnl and afebrile, PE another possibility though not hypoxic. Cultures pending, CTA pending, monitoring on tele # bacturia: UA with wbc and bacteria but relatively bland and with 1+ epithelial cell appears to be a dirty catch, started on ctx for possible infection, cultures pending # hx of IVDA/current meth abuse: states she no longer uses IV and states she has never used her PICC to inject drugs however as above PICC did appear filthy , cultures pending, some element of meth withdrawal may be contributing to her presentation # hep C: not treated as of yet, will check LFTs # IP status, patient new to my care, old records reviewed and summarized as above, care plan reviewed with ER doctor as above
[2018-12-15] MEDS ORDERED: IOPAMIDOL (ISOVUE 370) 100 ML BTL IV ONE (17:17)
[2018-12-15] MEDS ORDERED: VANCOMYCIN HCL/NORMAL SALINE 250 ML IV ONE (17:37)
[2018-12-15] MEDS: NS 1,000 ML IV SCH (18:02)
[2018-12-15] MEDS: HYDROCODONE/APAP 5/325 TAB PO PRN ×2 (18:12→22:17)
[2018-12-15] MEDS: NICOTINE 21 MG/24 HR PATCH TD SCH (18:29)
[2018-12-15] MEDS: LORazepam 0.5 MG TAB PO PRN (19:32)
[2018-12-15] MEDS ORDERED: DOCUSATE SODIUM 100 MG CAP PO PRN (21:06)
[2018-12-16] MEDS: HYDROCODONE/APAP 5/325 TAB PO PRN ×2 (03:04→07:24)
[2018-12-16] MEDS: NS 1,000 ML IV SCH (03:04)
[2018-12-16 05:46] LABS: PLATELET COUNT 87 10^3/uL (150-400)
[2018-12-16] MEDS ORDERED: VANCOMYCIN 1.25 GM in NS 250 ML IV SCH (06:00)
--- NOTE | 2018-12-16 07:12 | PDMN ---
Medical Necessity Medical necessity: Pt meets inpt criteria per MD order and MCG M-160, Sepsis and Other Febrile Illness, without Focal Infection, A-3 days. 33 y/o w/hx of IVDA, current meth abuse, Hep C, Hoddgkins Lymphoma w/known lg superior mediastianl mass - diagnosed in Aug 2018 presents w/chest and body pain, tachycardia, admitted w/acute sepsis, bacteremia- bl cultures w/GPC in clusters. PICC line inplace for last 3 months, dirty appearing on admit. IVF, IV ABX's, follow cultures, tele. Anticipate>2MN for ongoing management of above.
[2018-12-16] MEDS: LORazepam 0.5 MG TAB PO PRN ×2 (07:33→20:44)
[2018-12-16] MEDS: NICOTINE 21 MG/24 HR PATCH TD SCH (07:35)
[2018-12-16] MEDS ORDERED: ENOXAPARIN 40 MG/0.4 ML SYR SC SCH (09:00)
--- NOTE | 2018-12-16 09:06 | HOSPPROG ---
Hospitalist Progress Note Assessment/Plan: #MSSA bacteremia: due to PICC line (placed 09/08). h/o drug abuse will hinder outpatient treatment -Echo pending. MRI with neck pain. Repeat cultures -changed to Ancef. Discussed with Dr. Slaughter #Right basilic vein thrombophlebitis: warm compresses, NSAIDs #Meth abuse: smokes it, denies IV #Tobacco dependence: gulshan patch #Thrombocytopenia: monitor closely #Right hand swelling/pain: may be edema for PICC. Start with xray. May need MRI #Hodgkin's lymphoma: s/p 2 rounds ABVD; last Oct 2018 at [facility]. Transferring care to [facility]. -once acute infection treated will need Port. -cancer is highly-curable #Chronic HBV: On Entercavir to prevent recurrence while on chemo. Serologies pending #Chronic HCV #Diet: regular #DVT ppx: no Lovenox with low platelets #Disp: inpatient admission for IV abx, echo Subjective: pain in right hand. Pain left anterior chest and underarm Objective: Vital Signs Temp Pulse Resp BP Pulse Ox 36.5 C 114 H 16 136/83 H 96 12/16/18 07:44 12/16/18 07:44 12/16/18 07:44 12/16/18 07:44 12/16/18 07:44 Laboratory Results 12/16/18 05:27 12/16/18 05:27 12/15/18 12/16/18 12/17/18 05:59 05:59 05:59 Intake Total 3510 Output Total 550 Balance 2960 PT 15.3 SEC (12.0-15.0) H 12/15/18 14:45 INR 1.19 (0.83-1.16) H 12/15/18 14:45 - Time Spent With Patient Time Spent with Patient: greater than 35 minutes Time Spent with Patient: Greater than 35 minutes spent on this patients care, greater than 50% of time spent counseling, educating, and coordinating care regarding the above mentioned plan. - Physical Exam Constitutional: uncomfortable Ears, Nose, Mouth, Throat: moist mucous membranes Cardiovascular: regular rate and rhythym, other (left anterior chest mass palpated) Respiratory: no respiratory distress Gastrointestinal: normoactive bowel sounds Genitourinary: No delgado in urethra Musculoskeletal: other (right hand/wrist swollen. TTP over 4th,5th metacarpal joint, lateral aspect palm. RUE swollen) Neurologic: AAOx3, CN II-XII Intact Psychiatric: interacting appropriately ICD10 Worksheet Patient Problems: Problems Problem Status Onset Sepsis Acute Urinary tract infection Acute Chest pain Acute Mediastinal mass Acute Pleural effusion Acute Pneumonia Acute
[2018-12-16] MEDS: ENTECAVIR 0.5 MG PO SCH (09:29)
[2018-12-16] MEDS: ceFAZolin 2 GM/DEXTROSE 100 ML IV SCH ×2 (12:15→20:44)
--- NOTE | 2018-12-16 12:43 | GCON ---
INFECTIOUS DISEASE CONSULTATION DATE OF CONSULTATION: 12/16/2018 REFERRING PHYSICIAN: Shayy Vu MD REASON FOR CONSULTATION: MSSA bacteremia. HISTORY OF PRESENT ILLNESS: The patient is a 33-year-old female with a diagnosis of Hodgkin lymphoma in August, whom I am asked to see in consultation for MSSA bacteremia. The patient was diagnosed w ith Hodgkin lymphoma based on presence of mediastinal mass and lymphadenopathy last August. She had a PICC line placed and began chemotherapy in early September. She describes having her 2nd cycle of chemotherapy in October but then due to insurance reasons, was lost to followup. Her PICC line was kept in place during that timeframe, but she was not flushing this or having dressing changes. Appro ximately 2 days prior to admission, the patient developed fever and rigors. This was associated with significant sweating, malaise, and diffuse myalgias. She also complains of headache during this kala eframe with left-sided neck pain. She also complains of right hand and wrist pain which is greater t ching left-sided hand pain. Her forearm has been swollen. She did not note any purulence draining fro m her PICC line. She also complains of left chest wall tenderness. The patient has a prior history of injection drug use, which she states last occurred in May of 2018. She denies using her PICC elizabeth e for any injection drug use recently. She does note that she smoked methamphetamine in the last 3 w eeks. She has not experienced nausea, vomiting, or diarrhea. At the time of presentation, the patie nt had a temperature of 37.7 with a normal white blood cell count. She was noted to have mild thromb ocytopenia. Blood cultures were obtained, and 2 of 2 sets are now showing growth of MSSA. Patient w as given a dose of ceftriaxone in the emergency department and has been maintained on vancomycin subs equently. The PICC line was removed yesterday. Given the above findings, I am now asked to assist i n her ongoing management. PAST MEDICAL HISTORY: Hodgkin lymphoma as above, hyperthyroidism during , hepatitis C, hepa titis B, which she states is not chronic. PAST SURGICAL HISTORY: Tubal ligation, cholecystectomy. CURRENT MEDICATIONS: Vancomycin 1.25 g IV q.12 hours, albuterol nebs as needed, Lovenox 40 mg subcu daily, Toradol as needed, Ativan as needed, Baraclude 0.5 mg p.o. daily, Nicoderm CQ 21 mg patch evelyn y, Nicorette as needed. ALLERGIES: Patient notes that Augmentin is associated with tongue and throat swelling; she has nir ated cephalosporin; azithromycin associated with rash, but she has tolerated subsequent to initial ra sh. SOCIAL HISTORY: Patient smokes 1/2 pack per day. No alcohol use. Patient is a former injection emiliana g user but denies use since May 2018; last methamphetamine use 3 weeks ago by smoking. Travel to [place], [place]. FAMILY HISTORY: Prostate cancer and melanoma. REVIEW OF SYSTEMS: Outside that noted in the HPI, the remainder 10 system review is unremarkable. PHYSICAL EXAMINATION: VITAL SIGNS: Temperature 36.5, heart rate 114, respiratory rate 16, blood pre ssure 136/83, oxygen saturation 96% on room air. GENERAL: Patient is obese female in no acute distr ess. She appears nontoxic. HEENT: There is no scleral icterus, conjunctival injection, or conjunct ival petechiae. Oropharynx shows moist mucous membranes with dentition in fair repair. There is no nasal discharge. There is no sinus tenderness. NECK: Supple without meningismus. There is tendern ess to palpation along the lateral cervical spine. There is no palpable adenopathy. CHEST: There i s tenderness over the left upper chest wall. There is no overlying erythema or palpable fluctuance. LUNGS: Clear to auscultation bilaterally with normal respiratory effort. No adventitious sounds ar e noted. CARDIOVASCULAR: Tachycardic without murmurs, gallops, or rubs. ABDOMEN: Soft, nontender, nondistended. There is no palpable organomegaly. Bowel sounds are present. MUSCULOSKELETAL: The right upper arm shows a scab at the prior PICC line insertion; there is no palpable cord, fluctuance, or crepitus; there is no drainage. The right forearm is edematous and mildly tender. The right ching d is edematous most prominently over the metacarpal joints throughout the hand. The patient has diff iculty fully extending her digits. There is no pain with range of motion of the wrist. The left upp er extremity shows less prominent swelling of the hand and inability to fully extend digits. SKIN: There are no stigmata of endocarditis. The skin is diffusely warm to palpation. There are multiple scars over both lower extremities from prior injection drug use. NEUROLOGIC: Patient is alert and i nteracts appropriately with examiner. Cranial nerves 2 through 12 are grossly intact. Sensation is grossly intact. Muscle tone and bulk are normal. LYMPHATICS: No cervical or supraclavicular nodes. No palpable axillary mass. LABORATORY DATA: White blood cell count 6.5, hematocrit 33.6, platelets 87, neutrophils 80%. Serum creatinine 0.6, AST 60, ALT 53, bilirubin 0.7, alkaline phosphatase 75, albumin 3.0, venous lactate 1 .8, INR 1.2. Influenza PCR is negative. Urine drug screen is positive for opiates and amphetamines. Urinalysis shows 1-3 red blood cells and 5-10 white blood cells. Blood cultures with 2 of 2 sets s howing MSSA by PCR identification. CT scan of the chest shows mild diffuse interstitial edema; mediastinal mass has decreased from 7.7 x 4.9 to 5.3 x 1.6 cm. IMPRESSION: 1. Methicillin-sensitive Staphylococcus aureus bacteremia likely associated with indwelling peripher ally inserted central catheter line which has now been removed: BCID PCR showing methicillin-sensiti ve Staphylococcus aureus. Will, therefore, transition vancomycin to cefazolin. The patient with lef t-sided neck pain which will be further assessed with MRI to ensure no evidence of diskitis, osteomye litis, or epidural abscess. Will plan transthoracic echocardiogram to ensure no overt evidence of en docarditis. We will follow blood cultures over time to document clearing of bacteremia. 2. Right hand pain: Unclear if right hand pain is due to infectious etiology versus potential for p eripherally inserted central catheter-associated deep venous thrombosis with subsequent edema leading to patient's hand pain. Wrist does not appear irritable to suggest septic arthritis. 3. Chronic hepatitis C. 4. History of hepatitis B: Serologic studies are pending. The patient is on entecavir which may be to prevent recurrent hepatitis B in the setting of chemotherapy use. 5. We will assess total antibody against hepatitis A, as patient would benefit from vaccination if n egative. 6. Transthoracic echocardiogram. 7. Agree with plain films of the right hand. Ultimately, may require MRI to further assess this. Thank you for this consultation. We will continue to follow the patient with you. /[id number]/MODL
--- NOTE | 2018-12-16 13:03 | GCON ---
DATE OF CONSULTATION: 12/16/2018 REFERRING PHYSICIAN: Jd Cabral MD OUTPATIENT ONCOLOGIST: Dr. Destiny Stacy. REASON FOR CONSULTATION: Staph aureus bacteremia in a patient with Hodgkin lymphoma. HISTORY OF PRESENT ILLNESS: The patient is a 33-year-old woman with a history of stage IIB bulky Hodgkin lymphoma. She presented with shortness of breath in May 2018 and was found to have a mediastinal mass measuring 7.5 x 4 cm. She is transiently homeless and also has a history of substance abuse, and her followup was delayed until August when a biopsy was performed of a left supraclavicular node. This showed nodular sclerosis/classic Hodgkin's. She then had a PET-CT scan that showed extensive adenopathy in the chest, but noted active disease below the diaphragm. Her LDH was mildly elevated and her sed rate was elevated at 78. It was recommended that she start on chemotherapy with ABVD with curative intent. Due to her insurance, she needed to get her treatment done [facility]. She says she has received 2 doses of ABVD, one on September 22 and one just before . It was very difficult for her to get down there due to transportation issues. She had a PICC line that was placed for her chemotherapy. She denies injecting anything into it, but does acknowledge that her housing situation is tenuous and she has had some difficulty keeping it clean. She has not been getting regular nursing care or flushes. She presented with a fever yesterday. Blood cultures have grown out methicillin-sensitive Staph aureus. The line was removed and she is currently receiving vancomycin. CT angio of the chest shows that the primary mass is somewhat smaller than previously. PAST MEDICAL HISTORY: 1. Drug use including intravenous drugs and methamphetamine, though she denies IV drug use in the past several years. 2. Hepatitis C, untreated. 3. Hepatitis B. She says that she is taking entecavir. CURRENT MEDICATIONS: Vancomycin, prophylactic Lovenox, nicotine patch. ALLERGIES: She is allergic to amoxicillin and azithromycin. FAMILY HISTORY: Noncontributory. SOCIAL HISTORY: She smokes about a half a pack of cigarettes per day. Reports using methamphetamines, smoking a few weeks ago. REVIEW OF SYSTEMS: Other than pertinent positives in HPI, 14-point review of systems is negative. EXAMINATION: VITAL SIGNS: Her temperature is 36.5, blood pressure 136/83, heart rate 114, oxygen saturation 96% on room air. GENERAL: She was in no acute distress. HEENT: She had poor dentition. NECK: Supple without lymphadenopathy. LUNGS: Clear to auscultation bilaterally. CARDIAC: Regular rate, rhythm. No murmurs, gallops, rubs. ABDOMEN: Normoactive bowel sounds. Nontender, nondistended. EXTREMITIES: Without edema. SKIN: No petechiae, purpura. NEUROLOGIC: She is alert and oriented x3. Her PICC line site appears intact and there is no evidence of erythema or infection. LABORATORY DATA: White count 6.49, hemoglobin 11.4, platelets of 87. Comprehensive metabolic panel was unremarkable. IMPRESSION: This is a 33-year-old woman with a history of stage IIB classical Hodgkin lymphoma. She has received suboptimal therapy due to social and transportation issues, although her mass does appear to be responding on the CT scan. The first order of business is to treat her infection. She will need central access to complete her chemotherapy and we will need to make sure we have a good plan in place for taking better care of her line or possibly putting in a Port-A-Cath which will require less maintenance. Obviously, that would need to wait until her bacteremia has cleared. I explained to her that she has a highly curable malignancy, but if it is not treated optimally, the chances for curing it will be greatly diminished. She claims that her new insurance will allow her to be treated in [place], which certainly would be more convenient for her. I will speak to our financial advocates in our office to make sure things are set up so she can begin therapy when her insurance kicks in on December 23. With respect to her other infectious issues, she claims that she has hepatitis B exposure, though in our laboratory a few months ago she was negative for hepatitis B surface antigen and core antibody. I will repeat her hepatitis B panel and also check a viral load. There is a danger of hepatitis B reactivation for patients who are receiving chemotherapy, and therefore entecavir should be continued if she is confirmed to have had previous exposure. Thank you for this consultation. We will continue to follow patient with you closely while she is in the hospital. /[id number]/MODL MTDD
[2018-12-16] MEDS: KETOROLAC 30 MG/1 ML SDV IVP PRN ×2 (13:05→20:44)
[2018-12-16 13:09] LABS: HEPATITIS B SURFACE ANTIGEN NEGATIVE (NEGATIVE)
[2018-12-16 13:15] LABS: HEPATITIS B CORE AB TOTAL NEGATIVE (NEGATIVE)
[2018-12-16] MEDS ORDERED: GADOBUTROL 10 ML VIAL IVP ONE (14:58)
--- NOTE | 2018-12-16 16:09 | ECHO ---
[email or web address] [address] [address] Main: [phone] Fax: Transthoracic Echocardiogram Name: EVON JOHNSON MR#: [id number] Study Date: 12/16/2018 Study Time: 09:48 AM Date of : 1985 Age: 33 year(s) Height: 165.1 cm (65 in.) Weight: 93.89 kg (207 lb.) BSA: 2.01 m2 Gender: Female Examination: Echo Indication: MSSA Bacteremia Image Quality: Adequate Contrast: Requested by: Shayy Vu BP: 136 mmHg/83 mmHg Heart Rate: Rhythm: Indication: MSSA Bacteremia Procedure Staff Seo Manager: Vesna Rodgers RDCS Reading Physician: Sreedhar Malloy MD Requesting Provider: Conclusions: Normal size left ventricle. Normal global systolic LV function. EF is 68 %. No regional wall motion abnormality. There is mild thickening of the mitral valve leaflets. Mild mitral valve regurgitation is present. Mild tricuspid regurgitation is present. Trivial pericardial effusion. Left side pleural effusion. No evidence of valvular vegetations. Measurements: Chambers Valvular Assessment AV/MV Valvular Assessment TV/PV Normal Normal Normal Name Value Range Name Value Range Name Value Range IVSd (2D): 1.0 cm (0.6 cm-1.1 AV Vmax: 1.52 m/s (1 m/s-1.7 TR Vmax: 2.51 mm/s ( - ) cm) m/s) TR PGmax: 25 mmHg ( - ) LVDd (2D): 4.4 cm (3.9 cm-5.3 AV maxP mmHg ( - ) syst. PAP: 30 mmHg ( - ) cm) LVOT Vmax: 1.10 m/s (0.7 m/s-1.1 PV Vmax: 0.91 m/s (0.6 m/s-0.9 LVDs (2D): 2.7 cm (2.1 cm-4 m/s) m/s) cm) WILFRED (Vmax): 2.5 cm2 ( - ) PV PGmax: 3 mmHg ( - ) LVPWd (2D): 0.8 cm ( - ) MV E Vmax: 0.82 m/s ( - ) LVOTd 2.1 cm 2.1 cm mm MV A Vmax: 0.65 m/s ( - ) LVEF (BP): 68 % (>=55 %) MV E/A: 1.26 ( - ) RVDd(2D): 2.8 cm (1.9 cm-3.8 cmmm) Continued Measurements: Chambers Valvular Assessment AV/MV Valvular Assessment TV/PV Patient: EVON JOHNSON Study Date: 12/16/2018 Page 1 of 2 09:48 AM Name Value Name Value Name Value LADs: 3.4 cm MV DecTime: 109 m/s CVP (est.): 5 mmHg LADs Lon.4 cm MV E' Septal: 0.11 m/s LA Area: 15.4 cm2 MV E/E' Septal: 7.60 LA Volume: 29 ml MV E/E' Lateral: 5.50 LA Volume Index: 14.4 ml/m2 MR Vena Contracta: 0.4 cm TAPSE: 1.5 cm RA Area: 15.0 cm2 Findings: Left Ventricle: Normal size left ventricle. No LV hypertrophy. Normal global systolic LV function. EF is 68 %. No regional wall motion abnormality. Normal diastolic LV function. Right Ventricle: Normal size right ventricle. Normal RV function. Left Atrium: The left atrium is normal in size. Right Atrium: The right atrium is normal in size. Mitral Valve: There is mild thickening of the mitral valve leaflets. Mild mitral valve regurgitation is present. No mitral stenosis is present. There is no mitral valve vegetation. Aortic Valve: The aortic valve is tri-leaflet. There is no aortic valve regurgitation. No aortic valve stenosis is present. Tricuspid Valve: The tricuspid valve appears normal. Mild tricuspid regurgitation is present. No tricuspid valve vegetation. Pulmonic Valve: Pulmonary valve not visualized. There is no pulmonic regurgitation seen. Aorta: Normal size aortic root. Normal size ascending aorta. IVC: Normal size and course of the IVC. Pericardium: Trivial pericardial effusion. Left side pleural effusion. (No Signature Object) Patient: EVON JOHNSON Study Date: 12/16/2018 Page 2 of 2 09:48 AM [id number]
--- NOTE | 2018-12-16 20:56 | ASMTCMCOM ---
CM Note CM Note Notes: Pt admitted to hospital for general malaise. Blood cxs show Bacteremia, possible PICC site. Pt has hx of Hodgkins Lymphoma, was getting treatment for it but d/t to insurance difficulties, went for a month with PICC in but no treatment and has admitted to smoking meth but adamant about not injecting anything. Pt was homeless but now lives with boyfriend, dc needs uncertain, CM w/f. DC Plan: TBD Date Signed: 12/16/2018 05:49 PM Electronically Signed By:Ronda Renee RN
--- NOTE | 2018-12-16 20:56 | ASMTLACE ---
ROBERT Acuity / Level of Answers: Yes Care: Did the patient have an inpatient admission? Comorbidities - select Answers: Moderate or severe liver all that apply or renal disease Opioid dependence / Chronic pain Other Notes: Hodgkins Lymphoma # of Emergency department Answers: 3-4 visits in the last 6 months Social determinants Answers: History of substance abuse (ETOH, street drugs, prescription drugs, etc.) Score: 18 Date Signed: 12/16/2018 05:44 PM Electronically Signed By:Ronda Renee RN
[2018-12-17] MEDS: KETOROLAC 30 MG/1 ML SDV IVP PRN (04:21)
[2018-12-17] MEDS: ceFAZolin 2 GM/DEXTROSE 100 ML IV SCH (04:26)
[2018-12-17] MEDS: HYDROCODONE/APAP 5/325 TAB PO PRN ×4 (04:47→21:51)
--- NOTE | 2018-12-17 08:55 | HOSPPROG ---
Hospitalist Progress Note Assessment/Plan: #MSSA bacteremia: due to PICC line (placed 09/08). h/o drug abuse will hinder outpatient treatment -No vegetations on echo -mild epidural enhancement C5-6, no abscess. Change to Nafcillin for optimal coverage. -MRI left shoulder #Left shoulder pain: eval for effusion #Right hand swelling: improved some. If doesn't respond to abx, will MRI and consult Ortho. #Right basilic vein thrombophlebitis: warm compresses, NSAIDs #Meth abuse: smokes it, denies IV #Tobacco dependence: gulshan patch #Thrombocytopenia: monitor closely #Right hand swelling/pain: may be edema for PICC. Start with xray. May need MRI #Hodgkin's lymphoma: s/p 2 rounds ABVD; last Oct 2018 at [facility]. Transferring care to [facility]. -once acute infection treated will need Port. -cancer is highly-curable #Chronic HBV: On Entercavir to prevent recurrence while on chemo. Serologies pending #Chronic HCV #Meth abuse: denies recently, but positive utox. Counseled on cessation #Diet: regular #DVT ppx: no Lovenox with low platelets #Disp: inpatient admission for IV abx, MRI. Discussed with Dr. Slaughter Subjective: pain in right hand improved. Pain peristent left shoulder and upper chest Objective: Vital Signs Temp Pulse Resp BP Pulse Ox 36.9 C 101 H 18 105/77 95 12/17/18 07:55 12/17/18 07:55 12/17/18 07:55 12/17/18 07:55 12/17/18 07:55 Laboratory Results 12/16/18 05:27 12/17/18 05:09 12/16/18 12/17/18 12/18/18 05:59 05:59 05:59 Intake Total 3510 500 Output Total 550 Balance 2960 500 PT 15.3 SEC (12.0-15.0) H 12/15/18 14:45 INR 1.19 (0.83-1.16) H 12/15/18 14:45 - Time Spent With Patient Time Spent with Patient: greater than 35 minutes Time Spent with Patient: Greater than 35 minutes spent on this patients care, greater than 50% of time spent counseling, educating, and coordinating care regarding the above mentioned plan. - Physical Exam Constitutional: no apparent distress, unkempt Eyes: PERRL Ears, Nose, Mouth, Throat: moist mucous membranes Cardiovascular: regular rate and rhythym Respiratory: no respiratory distress Gastrointestinal: normoactive bowel sounds Genitourinary: No delgado in urethra Musculoskeletal: other (left shoulder effusion, TTP over joint. Right hand swelling mildly improved; less TTP over MCP joint) Neurologic: AAOx3, CN II-XII Intact Psychiatric: interacting appropriately ICD10 Worksheet Patient Problems: Problems Problem Status Onset Sepsis Acute Urinary tract infection Acute Chest pain Acute Mediastinal mass Acute Pleural effusion Acute Pneumonia Acute
--- NOTE | 2018-12-17 09:55 | PCMIDPN ---
Assessment/Plan: Assessment/Plan: * MSSA bacteremia associated with PICC line and early cervical epidural inflammatory change: Given early cervical epidural inflammatory changes will change cefazolin to nafcillin for optimal penetration. Reviewed patient's amoxicillin/clavulanate allergy which occurred 11 years ago also noting that patient states she has tolerated penicillin previously. Discussed risk of cross -reactivity in terms of drug allergy. Will proceed with MRI of left shoulder to ensure no evidence of shoulder effusion or myositis giving ongoing pain in this region; possible this is referred from cervical inflammatory process. Reviewed CT of chest with Radiology which does not show over changes of left sternoclavicular joint. Follow up repeat blood cultures to assess for clearing of bacteremia which typically takes 3-5 days of therapy to achieve with MSSA. Transthoracic echocardiogram without overt evidence of endocarditis. * Left shoulder pain: See above discussion * Right hand pain: Clinically consistent with improving tenosynovitis. No clear evidence on exam to suggest drainable focus. Will continue to observe this in response to antibiotic therapy. If fails to improve, will need to consider MRI of hand and Orthopedic surgery evaluation. Time spent, greater than 35 min, which greater than half was spent in education/ counseling/coordination of care related to MSSA bacteremia, cervical epidural inflammatory changes, left shoulder pain, and wrist pain including plan of care with discussion of changed to nafcillin and obtaining MRI of shoulder. 12/17/18 09:51 Subjective: Patient complains of persistent left lateral neck pain and left shoulder pain. Pain also present over left anterior chest wall. Right hand swollen this a.m. Which has now decreased. Continues to have pain and difficulty with full extension of digits although somewhat improved. Patient notes that she has tolerated penicillin in the past. Last receipt of amoxicillin/clavulanate approximately 11 years ago. Objective: Vital Signs Temp Pulse Resp BP Pulse Ox 36.9 C 101 H 18 105/77 95 12/17/18 07:55 12/17/18 07:55 12/17/18 07:55 12/17/18 07:55 12/17/18 07:55 Laboratory Results 12/17/18 05:09 12/16/18 12/17/18 12/18/18 05:59 05:59 05:59 Intake Total 3510 500 Output Total 550 Balance 2960 500 Cefazolin # 2 Blood cultures / MSSA Blood cultures 12/17/2018 pending MRI of cervical spine mild thickening and enhancement of epidural tissues at C5- 6 Transthoracic echocardiogram with mild MR/TR; no vegetations noted T-max 39.0 degrees - Physical Exam General Appearance: alert, no apparent distress, non-toxic EENT: No scleral icterus, No thrush, No conjunctival petechiae Respiratory: lungs clear, No respiratory distress Neck: tender lateral (Left lower cervical spine) Cardiac/Chest: tachycardia, No systolic murmur Extremities: inflammation (Right hand with persistent edema and inability to fully extend digits; less pain with passive extension of digits; no pain with range of motion of wrist; left shoulder with tenderness over shoulder joint without significant irritability; no erythema or edema over chest wall; tender over left sternoclavicular joint) Skin: No embolic lesions Neuro/Psych: No confused ICD10 Worksheet Patient Problems: Problems Problem Status Onset Sepsis Acute Urinary tract infection Acute Chest pain Acute Mediastinal mass Acute Pleural effusion Acute Pneumonia Acute
[2018-12-17] MEDS: FAMOTIDINE 20 MG TAB PO SCH ×2 (10:49→21:51)
[2018-12-17] MEDS: LORazepam 0.5 MG TAB PO PRN ×2 (10:49→21:54)
[2018-12-17] MEDS: NICOTINE 21 MG/24 HR PATCH TD SCH (10:49)
[2018-12-17] MEDS: ENTECAVIR 0.5 MG PO SCH (10:50)
[2018-12-17] MEDS ORDERED: GADOBUTROL 10 ML VIAL IVP ONE (11:46)
[2018-12-17] MEDS: NAFCILLIN SODIUM 2 GM in D5W 100 ML IV SCH ×4 (12:35→21:52)
--- NOTE | 2018-12-17 14:01 | SOAPPROG ---
SOAP Progress Note Assessment/Plan: Assessment/Plan: 33 yo woman w hx of classic Hodgkin's lymphoma who p/w fevers discovered to have MSSA bacteremia 1. Bacteremia - PICC line likley source which has been removed on nafcillin appreciate ID no epidural abscess; MRI shoulder pending will need new line once cultures have cleared and ok w ID 2. Hodgkin lymphoma - I believe she is stage 3 vs 4 s/p C2 ABVD, last October 2018 at [facility] will need to resume therapy beginning of December and would like to do so at [facility] will arrange pending repeat Hep B serologies has had Echo showing NO vegetations CT Chest shows reduction in size of mediastinal mass 3. Drug abuse - will need to pay close attention to any future central lines remains a concern but pt understands finishing treatment gives her a high likelihood of cure 4. SW to help w housing 12/17/18 13:56 12/17/18 14:01 Subjective: No acute events occasional chest pain No fevers eating and drinking ok Objective: Vital Signs Temp Pulse Resp BP Pulse Ox 36.4 C 103 H 18 125/88 H 93 12/17/18 12:00 12/17/18 12:00 12/17/18 12:00 12/17/18 12:00 12/17/18 12:00 Laboratory Results 12/17/18 05:14 12/17/18 05:09 12/16/18 12/17/18 12/18/18 05:59 05:59 05:59 Intake Total 3510 500 Output Total 550 Balance 2960 500 PT 15.3 SEC (12.0-15.0) H 12/15/18 14:45 INR 1.19 (0.83-1.16) H 12/15/18 14:45 Gen - NAD CV - RRR Chest - CTAB Abd - soft, NT/ND Ext - mild bilateral edema ICD10 Worksheet Patient Problems: Problems Problem Status Onset Sepsis Acute Urinary tract infection Acute Chest pain Acute Mediastinal mass Acute Pleural effusion Acute Pneumonia Acute
[2018-12-18] MEDS: KETOROLAC 30 MG/1 ML SDV IVP PRN ×2 (01:02→08:42)
[2018-12-18] MEDS: NAFCILLIN SODIUM 2 GM in D5W 100 ML IV SCH ×6 (02:38→21:35)
[2018-12-18] MEDS: HYDROCODONE/APAP 5/325 TAB PO PRN ×4 (05:24→22:55)
--- NOTE | 2018-12-18 08:37 | HOSPPROG ---
Hospitalist Progress Note Assessment/Plan: #MSSA bacteremia: due to PICC line (placed 09/08). h/o drug abuse will hinder outpatient treatment -No vegetations on echo -mild epidural enhancement C5-6, no abscess. IV Nafcillin -polyarticular arthritis: left shoulder without sig effusion, right hand improved with Toradol; change to Advil due to nosebleeds #Right basilic vein thrombophlebitis: warm compresses, NSAIDs #Meth abuse: smokes it. Counseled on cessation at length, CM to assist. #Tobacco dependence: gulshan patch #Thrombocytopenia: improving. Monitor nosebleeds #Hodgkin's lymphoma: s/p 2 rounds ABVD; last Oct 2018 at [facility]. Transferring care to [facility]. -once acute infection treated will need Port. -cancer is highly-curable #Chronic HBV: On Entercavir to prevent recurrence while on chemo. Serologies pending #Chronic HCV #Meth abuse: denies recently, but positive utox. Counseled on cessation #Diet: regular #DVT ppx: no Lovenox with low platelets #Disp: inpatient admission for IV abx, MRI. Discussed with Dr. Slaughter Subjective: pain persists in left shoudler. Less swelling, increased ROM right hand Objective: Vital Signs Temp Pulse Resp BP Pulse Ox 36.9 C 111 H 16 124/86 H 96 12/18/18 07:21 12/18/18 07:21 12/18/18 07:21 12/18/18 07:21 12/18/18 07:21 Laboratory Results 12/18/18 05:13 12/18/18 05:13 12/17/18 12/18/18 12/19/18 05:59 05:59 05:59 Intake Total 500 200 Output Total 3400 600 Balance 500 -3200 -600 PT 15.3 SEC (12.0-15.0) H 12/15/18 14:45 INR 1.19 (0.83-1.16) H 12/15/18 14:45 - Time Spent With Patient Time Spent with Patient: greater than 35 minutes Time Spent with Patient: Greater than 35 minutes spent on this patients care, greater than 50% of time spent counseling, educating, and coordinating care regarding the above mentioned plan. - Physical Exam Constitutional: no apparent distress Eyes: PERRL Ears, Nose, Mouth, Throat: poor dentition Cardiovascular: regular rate and rhythym Respiratory: no respiratory distress Gastrointestinal: normoactive bowel sounds Genitourinary: No delgado in urethra Skin: warm Musculoskeletal: other (left shoulder swollen, TPP over joint. Right hand less swollen with ability to form fist. Less pain with finger extension/flexion) Neurologic: AAOx3, CN II-XII Intact Psychiatric: interacting appropriately, other (tearful) ICD10 Worksheet Patient Problems: Problems Problem Status Onset MSSA bacteremia Acute Sepsis Acute Urinary tract infection Acute Chest pain Acute Mediastinal mass Acute Pleural effusion Acute Pneumonia Acute - ICD10 Problem Qualifiers (1) MSSA bacteremia
[2018-12-18] MEDS: ENTECAVIR 0.5 MG PO SCH (08:41)
[2018-12-18] MEDS: FAMOTIDINE 20 MG TAB PO SCH ×2 (08:42→21:35)
[2018-12-18] MEDS: NICOTINE 21 MG/24 HR PATCH TD SCH (08:42)
[2018-12-18] MEDS ORDERED: LACTULOSE 20 GM/30 ML UDCUP PO PRN (09:49)
[2018-12-18] MEDS ORDERED: MAGNESIUM HYDROXIDE 30 ML UDCUP PO PRN (09:49)
[2018-12-18] MEDS ORDERED: POLYETHYLENE GLYCOL 3350 17 GM PKT PO PRN (09:49)
[2018-12-18] MEDS ORDERED: BISACODYL 10 MG SUPP PR PRN (09:49)
--- NOTE | 2018-12-18 11:22 | PCMIDPN ---
Assessment/Plan: Assessment/Plan: * MSSA bacteremia associated with PICC line and early cervical epidural inflammatory change: Continue nafcillin which she is tolerating well to date. Preliminary MRI of shoulder does not show shoulder effusion or other inflammatory foci. Suspect shoulder pain may be referred pain related to C5-6 epidural inflammatory changes. Repeat blood cultures are no growth at approximately 24 hr. Long-term therapy complicated by active methamphetamine use. * Left shoulder pain: See above discussion. Await formal interpretation of MRI by musculoskeletal radiology. * Right hand pain: Significant clinical improvement. Range of motion of digits markedly improved. Query if this represents inflammatory tenosynovitis as infectious tenosynovitis seems less likely to improve with antibiotic therapy alone. Continue to follow over time. Time spent, greater than 35 min, which greater than half was spent in education/ counseling/coordination of care related to MSSA bacteremia, cervical epidural inflammatory changes, left shoulder pain, and wrist pain including plan of care with discussion of ongoing nafcillin therapy and discussion of need to discontinue amphetamine use in order to achieve successful outcome. 12/18/18 11:19 Subjective: Patient complains of persistent left lateral neck and shoulder pain. Right hand pain and swelling decreased with improved range of motion. No tongue swelling or rash with nafcillin therapy. Objective: Vital Signs Temp Pulse Resp BP Pulse Ox 36.9 C 111 H 16 124/86 H 96 12/18/18 07:21 12/18/18 07:21 12/18/18 07:21 12/18/18 07:21 12/18/18 07:21 Laboratory Results 12/18/18 05:13 12/18/18 05:13 12/17/18 12/18/18 12/19/18 05:59 05:59 05:59 Intake Total 500 200 Output Total 3400 600 Balance 500 -3200 -600 Nafcillin # 2 Antibiotics # 3 Blood cultures 12/17/2018 no growth to date Preliminary MRI of shoulder without effusion - Physical Exam General Appearance: alert, no apparent distress, non-toxic EENT: No scleral icterus, No thrush, No conjunctival petechiae Respiratory: lungs clear, No respiratory distress Neck: tender lateral (Left side), No meningismus Cardiac/Chest: tachycardia, other (Left chest wall tender to palpation into axillary region without erythema or fluctuance), No systolic murmur Extremities: inflammation (Right hand with significant decrease in edema with marked improvement in ability to extend and flex digits, no wrist pain; left shoulder pain decreased without irritability) Abdomen: non-tender, No distended Skin: No embolic lesions ICD10 Worksheet Patient Problems: Problems Problem Status Onset Sepsis Acute Urinary tract infection Acute Chest pain Acute Mediastinal mass Acute Pleural effusion Acute Pneumonia Acute
[2018-12-18] MEDS: IBUPROFEN 200 MG TAB PO PRN (21:40)
[2018-12-19 02:27] LABS: HEPATITIS A ANTIBODY TOTAL NEGATIVE (NEGATIVE)
[2018-12-19] MEDS: NAFCILLIN SODIUM 2 GM in D5W 100 ML IV SCH ×7 (02:31→21:56)
[2018-12-19] MEDS: HYDROCODONE/APAP 5/325 TAB PO PRN ×3 (03:40→11:59)
[2018-12-19] MEDS: IBUPROFEN 200 MG TAB PO PRN ×2 (06:28→12:50)
[2018-12-19] MEDS: FAMOTIDINE 20 MG TAB PO SCH ×2 (07:59→21:55)
[2018-12-19] MEDS: ENTECAVIR 0.5 MG PO SCH (07:59)
[2018-12-19] MEDS: NICOTINE 21 MG/24 HR PATCH TD SCH (08:00)
--- NOTE | 2018-12-19 13:14 | PCMIDPN ---
Assessment/Plan: Assessment: A 33-year-old woman with MSSA bloodstream infection likely from her longstanding PICC line with minimal care complicated by metastatic foci to the epidural tissue at C5/C6. Radicular pain down the left upper extremity likely exacerbated by inflammation at the site of clear degenerative disc disease at this level of her cervical spine. No other sites suggestive of metastatic foci from bacteremia, in no TTE evidence for endocarditis, with rapid clearance of blood cultures after removal of PICC line. She will require at least 2 weeks of IV antibiotics and likely at least 4 weeks total. 1. MSSA bloodstream infection, source likely longstanding indwelling PICC line 2. Left upper extremity radiculopathy with exacerbation by C5/C6 epidural inflammation, likely MSSA metastatic focus 3. Stage IIB Hodgkin's lymphoma, last treatment with ABVD in October of 2018 of 4. Active, untreated hepatitis C virus infection; chronic S 5. Chronic methamphetamine abuse Plan: 1. Continue nafcillin 2 g q.4 hours 2. Hold off on PICC line placement line patient until discharge plan in place 3. Hold intact of year and last hepatitis B virus DNA positive 4. Treatment for hepatitis C virus infection as outpatient 5. Discussed in detail potential side effects of nafcillin including antibiotic associated diarrhea, rash, C diff colitis, phlebitis Boni Dominguez MD Infectious Diseases Subjective: No fever or chills. Denies diarrhea, nausea, rash. Appetite improving. Primary concerns are pain in the left scapular area, with pain radiating down left upper extremity with movement. Right wrist pain improved and able to make a fist. No new joint pains. Objective: Vital Signs Temp Pulse Resp BP Pulse Ox 36.6 C 102 H 15 145/107 H 94 12/19/18 11:39 12/19/18 11:39 12/19/18 11:39 12/19/18 11:39 12/19/18 11:39 Laboratory Results 12/19/18 05:18 12/19/18 05:18 12/18/18 12/19/18 12/20/18 05:59 05:59 05:59 Intake Total 200 Output Total 3400 3100 1100 Balance -3200 -3100 -1100 Microbiology 12/15/18 15:02 Blood Blood Culture - Final Staphylococcus Aureus 12/15/18 14:45 Blood Blood Culture - Final 12/15/18 14:45 Blood Blood Panel (PCR) - Final Staphylococcus Aureus S.aureus Methicillin Suscept. 12/17/18 05:14 Blood Blood Culture - Preliminary 12/17/18 05:09 Blood Blood Culture - Preliminary Laboratory Tests 12/18/18 12/18/18 12/19/18 05:13 05:13 05:18 WBC 6.13 Hgb 11.5 L Plt Count 104 L Creatinine 0.6 0.7 12/19/18 05:18 WBC 6.48 Hgb 11.3 L Plt Count 144 L Creatinine Medications Generic Name Dose Route Start Last Admin Trade Name Freq PRN Reason Stop Dose Admin Nafcillin Sodium 2 gm/ 100 mls @ 100 mls/hr 12/17/18 10:00 12/19/18 10:55 Dextrose IV 01/16/19 09:59 100 mls Q4HRS [facility] Protocol Discontinued Medications Generic Name Dose Route Start Last Admin Trade Name Freq PRN Reason Stop Dose Admin Cefazolin Sodium/Dextrose 100 mls @ 200 mls/hr 12/16/18 12:00 Ancef IV 01/15/19 11:59 Q8H TOMMIE Protocol Ceftriaxone Sodium/Dextrose 50 mls @ 100 mls/hr 12/15/18 15:59 Rocephin 1 Gm (Premix) IV 12/15/18 16:28 EDNOW ONE Protocol Levofloxacin/Dextrose 150 mls @ 100 mls/hr 12/15/18 15:59 Levaquin 750 Mg (Premix) IV 12/15/18 17:28 EDNOW ONE Protocol Vancomycin HCl 1 each 12/15/18 20:45 Vancomycin Pharmacy To Dose, 10-15 Mcg/Ml [facility] 06/13/19 20:44 AD TOMMIE Protocol Vancomycin HCl 1.25 gm/ Sodium 250 mls @ 166.667 mls/hr 12/16/18 06:00 Chloride IV 01/15/19 05:59 Q12H TOMMIE Vancomycin/Sodium Chloride 250 mls @ 250 mls/hr 12/15/18 17:37 Vancomycin 1 Gm (Premix) IV 12/15/18 18:36 ONCE ONE Protocol - Physical Exam General Appearance: alert, apparent distress, obese, non-toxic EENT: No scleral icterus Respiratory: lungs clear, normal breath sounds, No respiratory distress, No crackles, No wheezing Neck: supple, limited range of motion (Range of motion limited by left upper extremity radiculopathy) Cardiac/Chest: regular rate, rhythm, No bradycardia, No tachycardia, No diastolic murmur, No systolic murmur Extremities: normal inspection (Generalized edema) Abdomen: non-tender, soft, No distended, No guarding Skin: normal color, No rash, No erythema Neuro/Psych: alert, normal mood/affect, oriented x 3, No confused - Time Spent With Patient Time Spent with Patient: greater than 35 minutes Time Spent with Patient: Greater than 35 minutes spent on this patients care, greater than 50% of time spent counseling, educating, and coordinating care regarding the above mentioned plan. ICD10 Worksheet Patient Problems: Problems Problem Status Onset MSSA bacteremia Acute Sepsis Acute Urinary tract infection Acute Chest pain Acute Mediastinal mass Acute Pleural effusion Acute Pneumonia Acute
[2018-12-19] MEDS ORDERED: ACETAMINOPHEN 500 MG TAB PO ONE ×2 (14:03→18:00)
--- NOTE | 2018-12-19 14:08 | HOSPPROG ---
Hospitalist Progress Note Assessment/Plan: MSSA bacteremia: due to PICC line (placed 09/08). h/o drug abuse will hinder outpatient treatment No vegetations on echo mild epidural enhancement C5-6, no abscess. IV Nafcillin polyarticular arthritis: left shoulder without sig effusion, right hand improved with Toradol; change to Advil due to nosebleeds Right basilic vein thrombophlebitis: warm compresses, NSAIDs Meth abuse: smokes it. Counseled on cessation at length, CM to assist. Tobacco dependence: gulshan patch Thrombocytopenia: improving. Monitor nosebleeds Hodgkin's lymphoma: s/p 2 rounds ABVD; last Oct 2018 at [facility]. Transferring care to [facility]. once acute infection treated will need Port. cancer is highly-curable Chronic HBV: On Entercavir to prevent recurrence while on chemo. Serologies pending pain: scheduled tylenol and ibuprofen prn oxycodone Chronic HCV Meth abuse: denies recently, but positive utox. Counseled on cessation Diet: regular DVT ppx: no Lovenox with low platelets Disp: inpatient admission for IV abx, MRI. Discussed with Dr. Slaughter Subjective: case d/w Dr Dominguez Objective: Vital Signs Temp Pulse Resp BP Pulse Ox 36.6 C 102 H 15 145/107 H 94 12/19/18 11:39 12/19/18 11:39 12/19/18 11:39 12/19/18 11:39 12/19/18 11:39 Laboratory Results 12/19/18 05:18 12/19/18 05:18 12/18/18 12/19/18 12/20/18 05:59 05:59 05:59 Intake Total 200 Output Total 3400 3100 1100 Balance -3200 -3100 -1100 PT 15.3 SEC (12.0-15.0) H 12/15/18 14:45 INR 1.19 (0.83-1.16) H 12/15/18 14:45 - Physical Exam Constitutional: no apparent distress, appears nourished Eyes: PERRL, anicteric sclera Ears, Nose, Mouth, Throat: moist mucous membranes, hearing normal Cardiovascular: regular rate and rhythym, no murmur, rub, or gallop Respiratory: no respiratory distress, no rales or rhonchi Gastrointestinal: normoactive bowel sounds, soft, non-tender abdomen Genitourinary: no bladder fullness, No delgado in urethra Skin: warm, normal color Musculoskeletal: full muscle strength Neurologic: AAOx3 ICD10 Worksheet Patient Problems: Problems Problem Status Onset MSSA bacteremia Acute Sepsis Acute Urinary tract infection Acute Chest pain Acute Mediastinal mass Acute Pleural effusion Acute Pneumonia Acute
--- NOTE | 2018-12-19 14:45 | SOAPPROG ---
SOAP Progress Note Assessment/Plan: A/P: 33 yo woman partially treated classic (NS) Hodgkin's lymphoma. Admitted with MSSA bacteremia from PICC. * MSSA bacteremia with ?C5-C6 inflammatory process: on nafcillin, PICC line removed. She will need another central line (PICC vs. port) for chemo once ID approves. Port may be best option due to no maintenance care (flushes, etc.). * St. IIB Hodgkins: partially treated at [facility]. She apparently will have new insurance effective 12/23/18 and would like to reestablish with Dr. Stacy to complete tx. * ?Hep. B: prior entecavir tx. Serologies pending. * Hep C, untreated. * Social situation, drug abuse: social work assistance. 12/19/18 14:41 Subjective: VS reviewed. Laboratory Tests 12/15/18 12/15/18 12/16/18 14:46 15:26 05:27 WBC Hgb Plt Count Sodium Potassium Chloride Carbon Dioxide BUN Creatinine Total Bilirubin 0.7 Conjugated Bilirubin 0.3 Unconjugated Bilirubin 0.4 AST 60 H ALT 53 H Alkaline Phosphatase 75 Lactate Dehydrogenase 452 Hep Bs Antigen NEGATIVE Hep Bs Antibody Negative Hep Bs Antibody, Quant <5.0 Hep B Core Total Ab NEGATIVE 12/19/18 12/19/18 05:18 05:18 WBC 6.48 Hgb 11.3 L Plt Count 144 L Sodium 138 Potassium 4.1 Chloride 109 Carbon Dioxide 26 BUN 8 Creatinine 0.7 Total Bilirubin Conjugated Bilirubin Unconjugated Bilirubin AST ALT Alkaline Phosphatase Lactate Dehydrogenase Hep Bs Antigen Hep Bs Antibody Hep Bs Antibody, Quant Hep B Core Total Ab Objective: Vital Signs Temp Pulse Resp BP Pulse Ox 36.6 C 102 H 15 145/107 H 94 12/19/18 11:39 12/19/18 11:39 12/19/18 11:39 12/19/18 11:39 12/19/18 11:39 Laboratory Results 12/19/18 05:18 12/19/18 05:18 12/18/18 12/19/18 12/20/18 05:59 05:59 05:59 Intake Total 200 Output Total 3400 3100 1100 Balance -3200 -3100 -1100 PT 15.3 SEC (12.0-15.0) H 12/15/18 14:45 INR 1.19 (0.83-1.16) H 12/15/18 14:45 ICD10 Worksheet Patient Problems: Problems Problem Status Onset MSSA bacteremia Acute Sepsis Acute Urinary tract infection Acute Chest pain Acute Mediastinal mass Acute Pleural effusion Acute Pneumonia Acute
[2018-12-19] MEDS: oxyCODONE IR 5 MG TAB PO PRN (16:44)
[2018-12-19] MEDS: IBUPROFEN 200 MG TAB PO SCH ×2 (18:01→23:35)
[2018-12-19] MEDS: LORazepam 0.5 MG TAB PO PRN (21:55)
[2018-12-20] MEDS: NAFCILLIN SODIUM 2 GM in D5W 100 ML IV SCH ×6 (02:29→23:16)
[2018-12-20] MEDS: oxyCODONE IR 5 MG TAB PO PRN ×2 (03:01→10:19)
[2018-12-20] MEDS: IBUPROFEN 200 MG TAB PO SCH ×5 (06:08→20:07)
[2018-12-20] MEDS: NICOTINE 21 MG/24 HR PATCH TD SCH (10:18)
[2018-12-20] MEDS: FAMOTIDINE 20 MG TAB PO SCH ×2 (10:19→20:07)
[2018-12-20] MEDS: ENTECAVIR 0.5 MG PO SCH (10:19)
[2018-12-20] MEDS ORDERED: ALTEPLASE 2 MG VIAL IVP PRN (11:46)
--- NOTE | 2018-12-20 11:56 | ASMTCMCOM ---
CM Note CM Note Notes: Referred patient to [facility] so they can help her with support services in the community and help her get her Medicaid transferred if she is going to stay here in [place]. ([place] Medicaid) Patient is now living with her boyfriend here in [place]. CM will follow. Date Signed: 12/20/2018 11:56 AM Electronically Signed By:Brigette Vázquez LCSW
--- NOTE | 2018-12-20 13:12 | HOSPPROG ---
Hospitalist Progress Note Assessment/Plan: MSSA bacteremia: due to PICC line (placed 09/08). h/o drug abuse will hinder outpatient treatment No vegetations on echo mild epidural enhancement C5-6, no abscess. IV Nafcillin repeat imaging today given worsening pain polyarticular arthritis: left shoulder without sig effusion, right hand improved with Toradol; change to Advil due to nosebleeds tachycardia: intermittent infection noted follow sinus Right basilic vein thrombophlebitis: warm compresses, NSAIDs Meth abuse: smokes it. Counseled on cessation at length, CM to assist. Tobacco dependence: gulshan patch Thrombocytopenia: improving. Monitor nosebleeds Hodgkin's lymphoma: s/p 2 rounds ABVD; last Oct 2018 at [facility]. Transferring care to [facility]. once acute infection treated will need Port. cancer is highly-curable Chronic HBV: On Entercavir to prevent recurrence while on chemo. Serologies pending pain: scheduled tylenol and ibuprofen prn oxycodone Chronic HCV Meth abuse: denies recently, but positive utox. Counseled on cessation Diet: regular DVT ppx: no Lovenox with low platelets Disp: inpatient admission for IV abx, MRI. Discussed with Dr. Slaughter Subjective: case d/w dr slaughter. neck pain worse. afebrile. lost IV access Objective: Vital Signs Temp Pulse Resp BP Pulse Ox 36.9 C 110 H 18 136/109 H 94 12/20/18 12:00 12/20/18 12:00 12/20/18 12:00 12/20/18 12:00 12/20/18 12:00 Laboratory Results 12/20/18 06:00 12/19/18 05:18 12/19/18 12/20/18 12/21/18 05:59 05:59 05:59 Intake Total 200 863 Output Total 3100 5200 1600 Balance -3100 -5000 -737 PT 15.3 SEC (12.0-15.0) H 12/15/18 14:45 INR 1.19 (0.83-1.16) H 12/15/18 14:45 - Physical Exam Constitutional: no apparent distress, appears nourished Eyes: PERRL, anicteric sclera Ears, Nose, Mouth, Throat: moist mucous membranes, hearing normal Cardiovascular: regular rate and rhythym, no murmur, rub, or gallop Respiratory: no respiratory distress, no rales or rhonchi Gastrointestinal: normoactive bowel sounds, soft, non-tender abdomen Genitourinary: no bladder fullness, No delgado in urethra Skin: warm, normal color Musculoskeletal: full muscle strength, other (no arm weakness) Neurologic: AAOx3, sensation intact bilaterally ICD10 Worksheet Patient Problems: Problems Problem Status Onset MSSA bacteremia Acute Sepsis Acute Urinary tract infection Acute Chest pain Acute Mediastinal mass Acute Pleural effusion Acute Pneumonia Acute
--- NOTE | 2018-12-20 13:38 | PCMIDPN ---
Assessment/Plan: Assessment/Plan: * MSSA bacteremia associated with PICC line and early cervical epidural inflammatory change: Continue nafcillin which she is tolerating well to date. Lost IV access today. Will proceed with PICC line placement since repeat blood cultures show clearing of bacteremia. Favor PICC line over port in short-term until clear that cervical spine pain not evolving into epidural abscess. Agree that port will be better long-term access solution with need for chemotherapy. Discussed with patient that PICC line cannot be use for purposes other than ongoing medical care. Will repeat MRI of cervical spine given persistent/ worsening neck pain to ensure previous inflammatory changes are not of evolving into epidural abscess. * Left shoulder pain: Improved. Suspect some related to referred pain from neck inflammation. * Right hand pain: Marked clinical improvement. Consistent with resolving tenosynovitis which may have been of infectious versus inflammatory etiology. * Entecavir use: Hepatitis-B core antibody is negative on serologic assessment currently. Hepatitis-B DNA was not performed due to insufficient quantity. Will repeat this to see if she has evidence of viremia although this would be unlikely on antiviral therapy. Other option if DNA is negative is to initiate hepatitis B vaccination. Patient will also need hepatitis a vaccination given chronic hepatitis C and hepatitis A IgG is negative. * Chronic hepatitis-C: Will address this once patient has completed therapy for MSSA bacteremia and chemotherapy for lymphoma. Time spent, greater than 35 min, which greater than half was spent in education/ counseling/coordination of care related to MSSA bacteremia, cervical epidural inflammatory changes and ongoing neck pain including plan of care with discussion of ongoing nafcillin therapy and discussion of need to discontinue amphetamine use in order to achieve successful outcome. 12/20/18 13:31 12/20/18 13:39 12/20/18 13:41 Subjective: Patient complains of persistent/worse left lateral neck pain. Associated with some radicular pain in left arm. Right hand continues to improve. Objective: Vital Signs Temp Pulse Resp BP Pulse Ox 36.9 C 110 H 18 136/109 H 94 12/20/18 12:00 12/20/18 12:00 12/20/18 12:00 12/20/18 12:00 12/20/18 12:00 Laboratory Results 12/20/18 06:00 12/19/18 05:18 12/19/18 12/20/18 12/21/18 05:59 05:59 05:59 Intake Total 200 863 Output Total 8870 5200 1600 Balance -3100 -5000 -737 Nafcillin # 4 Antibiotics # 5 Blood cultures 12/17/2018 no growth Hepatitis-B DNA not performed due to quantity insufficient Laboratory Tests 12/15/18 12/16/18 12/17/18 14:46 05:27 05:09 Hepatitis A Ab Total NEGATIVE Hep Bs Antigen NEGATIVE Hep Bs Antibody Negative Hep B Core Total Ab NEGATIVE - Physical Exam General Appearance: alert, no apparent distress EENT: No scleral icterus, No thrush, No conjunctival petechiae Respiratory: lungs clear, No respiratory distress Neck: tender lateral (Lower cervical spine and shoulder on left) Cardiac/Chest: tachycardia, No systolic murmur Extremities: other (No pain with range of motion of left shoulder) Abdomen: non-tender, No distended Skin: No embolic lesions ICD10 Worksheet Patient Problems: Problems Problem Status Onset MSSA bacteremia Acute Sepsis Acute Urinary tract infection Acute Chest pain Acute Mediastinal mass Acute Pleural effusion Acute Pneumonia Acute
[2018-12-20] MEDS ORDERED: IOPAMIDOL (ISOVUE 370) 100 ML BTL IV ONE (15:53)
[2018-12-20] MEDS: LORazepam 0.5 MG TAB PO PRN (17:06)
[2018-12-20] MEDS ORDERED: GADOBUTROL 10 ML VIAL IVP ONE (18:05)
[2018-12-21] MEDS: IBUPROFEN 200 MG TAB PO SCH ×6 (00:41→22:32)
[2018-12-21] MEDS: oxyCODONE IR 5 MG TAB PO PRN ×3 (00:42→13:28)
[2018-12-21] MEDS: NAFCILLIN SODIUM 2 GM in D5W 100 ML IV SCH ×6 (03:36→22:32)
[2018-12-21] MEDS: ENTECAVIR 0.5 MG PO SCH (07:55)
[2018-12-21] MEDS: FAMOTIDINE 20 MG TAB PO SCH ×2 (07:55→22:32)
[2018-12-21] MEDS: NICOTINE 21 MG/24 HR PATCH TD SCH (07:56)
[2018-12-21] MEDS ORDERED: DIPHENHYDRAMINE CREAM TP PRN (11:10)
--- NOTE | 2018-12-21 11:14 | HOSPPROG ---
Hospitalist Progress Note Assessment/Plan: MSSA bacteremia: due to PICC line (placed 09/08). h/o drug abuse will hinder outpatient treatment No vegetations on echo mild epidural enhancement C5-6, no abscess. IV Nafcillin repeat imaging shows improvement, no abscess polyarticular arthritis: left shoulder without sig effusion, right hand improved with Toradol; change to Advil due to nosebleeds tachycardia: intermittent infection noted follow sinus pruritis: around picc line added benadryl cream Right basilic vein thrombophlebitis: warm compresses, NSAIDs Meth abuse: smokes it. Counseled on cessation at length, CM to assist. Tobacco dependence: gulshan patch Thrombocytopenia: improving. Monitor nosebleeds Hodgkin's lymphoma: s/p 2 rounds ABVD; last Oct 2018 at [facility]. Transferring care to [facility]. once acute infection treated will need Port. cancer is highly-curable sen by onc- appreciated Chronic HBV: On Entercavir to prevent recurrence while on chemo. Serologies pending pain: scheduled tylenol and ibuprofen prn oxycodone Chronic HCV Meth abuse: denies recently, but positive utox. Counseled on cessation Diet: regular DVT ppx: no Lovenox with low platelets Disp: inpatient admission for IV abx, MRI. Discussed with Dr. Slaughter Subjective: case d/w dr slaughter. c spine MRI w improving enhancement Objective: Vital Signs Temp Pulse Resp BP Pulse Ox 37.2 C 99 16 138/88 H 95 12/21/18 08:05 12/21/18 08:05 12/21/18 08:05 12/21/18 08:05 12/21/18 08:05 Laboratory Results 12/20/18 06:00 12/19/18 05:18 12/20/18 12/21/18 12/22/18 05:59 05:59 05:59 Intake Total 200 1438 Output Total 5200 2400 Balance -5000 -962 PT 15.3 SEC (12.0-15.0) H 12/15/18 14:45 INR 1.19 (0.83-1.16) H 12/15/18 14:45 - Physical Exam Constitutional: no apparent distress, appears nourished Eyes: PERRL, anicteric sclera Ears, Nose, Mouth, Throat: moist mucous membranes, hearing normal Cardiovascular: regular rate and rhythym, no murmur, rub, or gallop Respiratory: no respiratory distress, no rales or rhonchi Gastrointestinal: normoactive bowel sounds, soft, non-tender abdomen Genitourinary: No delgado in urethra Skin: warm, normal color Musculoskeletal: full muscle strength ICD10 Worksheet Patient Problems: Problems Problem Status Onset MSSA bacteremia Acute Sepsis Acute Urinary tract infection Acute Chest pain Acute Mediastinal mass Acute Pleural effusion Acute Pneumonia Acute
--- NOTE | 2018-12-21 13:46 | ASMTCMCOM ---
CM Note CM Note Notes: Patient got a PICC line yesterday. She is going to require IV ABX. Patient is a meth user though she states she has not used recently. Her tox screen however, was positive. Awaiting plan of care with nafcillin therapy to determine d/c needs. CM will follow. Date Signed: 12/21/2018 01:45 PM Electronically Signed By:Brigette Vázquez LCSW
--- NOTE | 2018-12-21 15:17 | PCMIDPN ---
Assessment/Plan: Assessment: A 33-year-old woman with MSSA bloodstream infection likely from her longstanding PICC line with minimal care complicated by metastatic foci to the epidural tissue at C5/C6. Continued improvement in overall clinical condition with decreased pain in LUE. Expect at least two weeks of IV therapy for MSSA infection followed by 2-4 weeks of oral therapy. 1. MSSA bloodstream infection, source likely longstanding indwelling PICC line 2. Left upper extremity radiculopathy with exacerbation by C5/C6 epidural inflammation, likely MSSA metastatic focus 3. Stage IIB Hodgkin's lymphoma, last treatment with ABVD in October of 2018 4. Active, untreated hepatitis C virus infection; chronic 5. Chronic methamphetamine abuse Plan: 1. Continue nafcillin 2 g q.4 hours plan at least 2 weeks of IV therapy with earliest and date December 31 2. Hold Entecavir of year and last hepatitis B virus DNA positive 3. Treatment for hepatitis C virus infection as outpatient 4. Discussed in detail potential side effects of nafcillin including antibiotic associated diarrhea, rash, C diff colitis, phlebitis Boni Dominguez MD Infectious Diseases Subjective: No fever or chills. Denies diarrhea, nausea. Appetite improving. Itching at site of PICC line placement on left. Rash around right arm unchanged. Pain in left arm improved. Pain in right arm under armpit which she believes is related to swelling. Objective: Vital Signs Temp Pulse Resp BP Pulse Ox 37.1 C 98 16 132/90 H 95 12/21/18 12:00 12/21/18 12:00 12/21/18 12:00 12/21/18 12:00 12/21/18 12:00 Laboratory Results 12/20/18 06:00 12/19/18 05:18 12/20/18 12/21/18 12/22/18 05:59 05:59 05:59 Intake Total 200 1438 Output Total 5200 2400 Balance -5000 -962 Medications Generic Name Dose Route Start Last Admin Trade Name Freq PRN Reason Stop Dose Admin Nafcillin Sodium 2 gm/ 100 mls @ 100 mls/hr 12/17/18 10:00 12/21/18 13:22 Dextrose IV 01/16/19 09:59 100 mls Q4HRS TOMMIE Protocol Microbiology 12/15/18 15:02 Blood Blood Culture - Final Staphylococcus Aureus 12/15/18 14:45 Blood Blood Culture - Final 12/15/18 14:45 Blood Blood Panel (PCR) - Final Staphylococcus Aureus S.aureus Methicillin Suscept. 12/17/18 05:14 Blood Blood Culture - Preliminary 12/17/18 05:09 Blood Blood Culture - Preliminary Laboratory Tests 12/19/18 12/20/18 05:18 06:00 WBC 6.48 7.13 Hgb 11.3 L 11.8 L Plt Count 144 L 197 - Physical Exam General Appearance: alert, no apparent distress, obese, non-toxic EENT: No scleral icterus Respiratory: lungs clear, normal breath sounds, No respiratory distress, No crackles, No wheezing Neck: supple Cardiac/Chest: regular rate, rhythm, No bradycardia, No tachycardia, No diastolic murmur, No systolic murmur Extremities: No erythema Abdomen: non-tender, soft, No distended, No guarding Back: spine tenderness (Tenderness along the cervical spine) Skin: rash (Erythematous circumferentially around right upper extremity biceps and triceps) Neuro/Psych: alert, normal mood/affect, oriented x 3 - Time Spent With Patient Time Spent with Patient: greater than 35 minutes Time Spent with Patient: Greater than 35 minutes spent on this patients care, greater than 50% of time spent counseling, educating, and coordinating care regarding the above mentioned plan. ICD10 Worksheet Patient Problems: Problems Problem Status Onset MSSA bacteremia Acute Sepsis Acute Urinary tract infection Acute Chest pain Acute Mediastinal mass Acute Pleural effusion Acute Pneumonia Acute
[2018-12-21] MEDS: ENOXAPARIN 40 MG/0.4 ML SYR SC SCH (17:23)
[2018-12-21] MEDS: LORazepam 0.5 MG TAB PO PRN (22:32)
[2018-12-22] MEDS: NAFCILLIN SODIUM 2 GM in D5W 100 ML IV SCH ×6 (02:57→21:37)
[2018-12-22] MEDS: IBUPROFEN 200 MG TAB PO SCH ×6 (03:03→21:11)
[2018-12-22] MEDS: NICOTINE 21 MG/24 HR PATCH TD SCH (09:24)
[2018-12-22] MEDS: FAMOTIDINE 20 MG TAB PO SCH ×2 (09:24→21:11)
[2018-12-22] MEDS: ENTECAVIR 0.5 MG PO SCH (09:25)
[2018-12-22] MEDS: oxyCODONE IR 5 MG TAB PO PRN (10:11)
--- NOTE | 2018-12-22 11:31 | PCMIDPN ---
Assessment/Plan: Assessment: A 33-year-old woman with MSSA bloodstream infection likely from her longstanding PICC line with minimal care complicated by metastatic foci to the epidural tissue at C5/C6. She has no ongoing signs or symptoms of active infection. She is tolerating nafcillin quite well. Right axillary painful lymphadenopathy concerning for increased activity of her underlying Hodgkin's lymphoma, she is planned to reestablish with outpatient automobile accessories installer starting December 23. Will plan a total of 2 weeks of IV antibiotics, which can be changed from nafcillin if needed. To be followed by 2 additional weeks of Bactrim at 10 milligrams/kilogram per day. 1. MSSA bloodstream infection, source likely longstanding indwelling PICC line; removal at admission served as source control 2. Right axillary painful lymphadenopathy, likely underlying Hodgkin's lymphoma 3. Left upper extremity radiculopathy with exacerbation by C5/C6 epidural inflammation, likely MSSA metastatic focus 4. Stage IIB Hodgkin's lymphoma, last treatment with ABVD in October of 2018 5. Active, untreated hepatitis C virus infection; chronic 6. Chronic methamphetamine abuse Plan: 1. Continue nafcillin 2 g q.4 hours plan at least 2 weeks of IV therapy with end date December 31 2. Starting December 31, Bactrim 2DS tablets 3 times daily (10mg/kg/day) for 2 additional weeks (end date 01/14/19) 3. Hold Entecavir of year and last hepatitis B virus DNA positive 4. Treatment for hepatitis C virus infection as outpatient 5. Discussed in detail potential side effects of nafcillin including antibiotic associated diarrhea, rash, C diff colitis, phlebitis Boni Dominguez MD Infectious Diseases Subjective: No fever or chills. Denies diarrhea, nausea. Appetite improving. Ambulating without difficulty around room. Right axillary pain with nodularity. Left scapular pain and left arm radiculopathy improved. Objective: Vital Signs Temp Pulse Resp BP Pulse Ox 37.0 C 99 16 143/84 H 94 12/22/18 07:58 12/22/18 07:58 12/22/18 07:58 12/22/18 07:58 12/22/18 07:58 Microbiology 12/17/18 05:14 Blood Culture - Final Blood 12/17/18 05:09 Blood Culture - Final Blood Laboratory Results 12/20/18 06:00 12/19/18 05:18 12/21/18 12/22/18 12/23/18 05:59 05:59 05:59 Intake Total 1438 980 Output Total 2400 3900 Balance -962 -2920 - Physical Exam General Appearance: alert, no apparent distress, obese, non-toxic EENT: No scleral icterus Respiratory: lungs clear, normal breath sounds, No respiratory distress, No crackles, No wheezing Neck: full range of motion, supple Cardiac/Chest: regular rate, rhythm, No bradycardia, No tachycardia, No diastolic murmur, No systolic murmur Extremities: swelling Abdomen: non-tender, soft, No distended Back: normal inspection Skin: rash (Circumferential erythematous rash around the right biceps and triceps, unchanged) Neuro/Psych: alert, oriented x 3, depressed affect Lymphatic: other (Right axillary painful lymphadenopathy) - Time Spent With Patient Time Spent with Patient: greater than 35 minutes Time Spent with Patient: Greater than 35 minutes spent on this patients care, greater than 50% of time spent counseling, educating, and coordinating care regarding the above mentioned plan. ICD10 Worksheet Patient Problems: Problems Problem Status Onset MSSA bacteremia Acute Sepsis Acute Urinary tract infection Acute Chest pain Acute Mediastinal mass Acute Pleural effusion Acute Pneumonia Acute
--- NOTE | 2018-12-22 13:16 | HOSPPROG ---
Hospitalist Progress Note Assessment/Plan: MSSA bacteremia: due to PICC line (placed 09/08). h/o drug abuse will hinder outpatient treatment No vegetations on echo mild epidural enhancement C5-6, no abscess. IV Nafcillin repeat imaging shows improvement, no abscess polyarticular arthritis, Met Foci at epidural tissue at C5/6 likely infectious: left shoulder without sig effusion, right hand improved with Toradol ; change to Advil due to nosebleeds tachycardia: intermittent infection noted follow sinus pruritis: around picc line cont benadryl cream Right basilic vein thrombophlebitis: warm compresses, NSAIDs Meth abuse: smokes it. Counseled on cessation at length, CM to assist. Tobacco dependence: gulshan patch Thrombocytopenia: improving. Monitor nosebleeds Hodgkin's lymphoma: s/p 2 rounds ABVD; last Oct 2018 at [facility]. Transferring care to [facility]. once acute infection treated will need Port. cancer is highly-curable sen by onc- appreciated Chronic HBV: On Entercavir to prevent recurrence while on chemo. Serologies pending pain: scheduled tylenol and ibuprofen prn oxycodone Chronic HCV Diet: regular DVT ppx: no Lovenox with low platelets Disp: inpatient admission for IV abx, MRI. Discussed ID Plan: cont abx, will need through Dec 31 and then 2-4 weeks PO after. New pt to my care. records reviewed extensively. d/w ID Subjective: no cp or sob. no n/v. afebrile. Objective: Vital Signs Temp Pulse Resp BP Pulse Ox 37.0 C 99 16 143/84 H 94 12/22/18 07:58 12/22/18 07:58 12/22/18 07:58 12/22/18 07:58 12/22/18 07:58 Microbiology 12/17/18 05:14 Blood Culture - Final Blood 12/17/18 05:09 Blood Culture - Final Blood Laboratory Results 12/20/18 06:00 12/19/18 05:18 12/21/18 12/22/18 12/23/18 05:59 05:59 05:59 Intake Total 1438 980 Output Total 2400 3900 Balance -962 -2920 PT 15.3 SEC (12.0-15.0) H 12/15/18 14:45 INR 1.19 (0.83-1.16) H 12/15/18 14:45 - Physical Exam Constitutional: no apparent distress Eyes: PERRL, EOMI Ears, Nose, Mouth, Throat: moist mucous membranes, hearing normal Cardiovascular: No edema Respiratory: no respiratory distress, no rales or rhonchi, clear to auscultation Gastrointestinal: normoactive bowel sounds, soft, non-tender abdomen Skin: warm Neurologic: AAOx3 Psychiatric: interacting appropriately, not anxious, not encephalopathic Lymph, Heme, Immunologic: No petechiae ICD10 Worksheet Patient Problems: Problems Problem Status Onset MSSA bacteremia Acute Sepsis Acute Urinary tract infection Acute Chest pain Acute Mediastinal mass Acute Pleural effusion Acute Pneumonia Acute
[2018-12-22] MEDS: ENOXAPARIN 40 MG/0.4 ML SYR SC SCH (13:24)
--- NOTE | 2018-12-22 20:03 | SOAPPROG ---
SOAP Progress Note Assessment/Plan: Assessment: SOAP Progress Note Assessment/Plan: A/P: 33 yo woman partially treated classic (NS) Hodgkin's lymphoma. Admitted with MSSA bacteremia from PICC. * MSSA bacteremia with ?C5-C6 inflammatory process: on nafcillin, PICC line removed. * St. IIB Hodgkins: partially treated at [facility]. She has new insurance effective 12/23/18 and would like to reestablish with Dr. Stacy to complete tx. * ?Hep. B: prior entecavir tx. * Hep C, untreated. * Increased right upper inner arm and axillary pain-no appreciable axillary adenopathy. Would not expect Hodgkins to progress in this time frame. ? developement of DVT in area of prior PICC. * Social situation, drug abuse: social work assistance. Plan: continue Nafcillin Ultrasound of right arm and axilla to evaluate for DVT Ultimately, will follow up with Dr. Stacy at [facility] to complete treatment for Hodgkins Subjective: notes increasing right upper inner arm pain, no swelling Objective: Vital Signs Temp Pulse Resp BP Pulse Ox 37.2 C 97 16 141/89 H 97 12/22/18 15:32 12/22/18 16:41 12/22/18 16:41 12/22/18 15:32 12/22/18 16:41 Microbiology 12/17/18 05:14 Blood Culture - Final Blood 12/17/18 05:09 Blood Culture - Final Blood Laboratory Results 12/20/18 06:00 12/19/18 05:18 12/21/18 12/22/18 12/23/18 05:59 05:59 05:59 Intake Total 1438 980 Output Total 2400 3900 Balance -962 -2920 PT 15.3 SEC (12.0-15.0) H 12/15/18 14:45 INR 1.19 (0.83-1.16) H 12/15/18 14:45 Physical Exam - Physical Exam General Appearance: alert, no apparent distress Neck: supple Respiratory: lungs clear Abdomen: soft Extremities: other (tender to palpation along upper inner right arm, no obvious cords) Neuro/Psych: alert ICD10 Worksheet Patient Problems: Problems Problem Status Onset MSSA bacteremia Acute Sepsis Acute Urinary tract infection Acute Chest pain Acute Mediastinal mass Acute Pleural effusion Acute Pneumonia Acute
[2018-12-22] MEDS: ENOXAPARIN 100 MG/ML SYR SC SCH (21:26)
[2018-12-22] MEDS: LORazepam 0.5 MG TAB PO PRN (21:37)
[2018-12-23] MEDS: IBUPROFEN 200 MG TAB PO SCH ×4 (00:30→13:16)
[2018-12-23] MEDS: NAFCILLIN SODIUM 2 GM in D5W 100 ML IV SCH ×6 (02:23→21:38)
[2018-12-23] MEDS: FAMOTIDINE 20 MG TAB PO SCH ×2 (08:05→21:38)
[2018-12-23] MEDS: NICOTINE 21 MG/24 HR PATCH TD SCH (08:06)
[2018-12-23] MEDS: ENOXAPARIN 100 MG/ML SYR SC SCH ×2 (08:06→21:38)
[2018-12-23] MEDS: ENTECAVIR 0.5 MG PO SCH (08:08)
--- NOTE | 2018-12-23 10:22 | ASMTCMCOM ---
CM Note CM Note Notes: Met w patient re: her [facility] Medicaid. Per patient, she called [employer] and updated info to have Medicaid coverage switched to [facility]. This new coverage was to begin effective today, 12/23. I informed our Medicaid specialist and financial counselors of the update,. Now, patient will get primary care serverices at [facility], and her oncologist will be Dr Stacy at [facility]. She will f/u with any other specialists that are recommended. Likely here through 12/31 for IV abx d/t hx of IVDU. Case Management to follow. Date Signed: 12/23/2018 10:21 AM Electronically Signed By:Tammy Hubbard RN
[2018-12-23 10:41] LABS: PLATELET COUNT 422 10^3/uL (150-400)
--- NOTE | 2018-12-23 12:58 | HOSPPROG ---
Hospitalist Progress Note Assessment/Plan: MSSA bacteremia: due to PICC line (placed 09/08). h/o drug abuse will hinder outpatient treatment No vegetations on echo mild epidural enhancement C5-6, no abscess. IV Nafcillin repeat imaging shows improvement, no abscess polyarticular arthritis, Met Foci at epidural tissue at C5/6 likely infectious: left shoulder without sig effusion, right hand improved with Toradol ; change to Advil due to nosebleeds tachycardia: intermittent infection noted follow sinus pruritis: around picc line cont benadryl cream Right basilic vein thrombophlebitis: warm compresses, NSAIDs Right Axillary and Subclavian acute DVT: Lovenox therapeutic started on 12/23 Warfarin to start tonight Meth abuse: smokes it. Counseled on cessation at length, CM to assist. Tobacco dependence: gulshan patch Thrombocytopenia: improving. Monitor nosebleeds Hodgkin's lymphoma: s/p 2 rounds ABVD; last Oct 2018 at [facility]. Transferring care to [facility]. once acute infection treated will need Port. cancer is highly-curable sen by onc- appreciated Chronic HBV: On Entercavir to prevent recurrence while on chemo. Serologies pending pain: scheduled tylenol and ibuprofen prn oxycodone Chronic HCV Diet: regular DVT ppx: no Lovenox with low platelets Disp: inpatient admission for IV abx, MRI. Discussed ID Plan: cont with IV abx per ID cont with Lovenox. Start Warfarin cont inpatient Subjective: DVT diagnosed. no cp or sob. no leg swelling Objective: Vital Signs Temp Pulse Resp BP Pulse Ox 37.1 C 100 18 146/97 H 95 12/23/18 07:53 12/23/18 07:53 12/23/18 07:53 12/23/18 07:53 12/23/18 07:53 Microbiology 12/17/18 05:14 Blood Culture - Final Blood 12/17/18 05:09 Blood Culture - Final Blood Laboratory Results 12/23/18 10:25 12/23/18 10:25 12/22/18 12/23/18 12/24/18 05:59 05:59 05:59 Intake Total 980 500 Output Total 3900 600 Balance -2920 -100 PT 15.3 SEC (12.0-15.0) H 12/15/18 14:45 INR 1.19 (0.83-1.16) H 12/15/18 14:45 - Physical Exam Constitutional: no apparent distress Eyes: PERRL Ears, Nose, Mouth, Throat: moist mucous membranes, hearing normal Cardiovascular: regular rate and rhythym, No edema Respiratory: no respiratory distress, no rales or rhonchi, clear to auscultation Gastrointestinal: normoactive bowel sounds, soft, non-tender abdomen Skin: warm Neurologic: AAOx3 Psychiatric: interacting appropriately, not anxious, not encephalopathic Lymph, Heme, Immunologic: No petechiae ICD10 Worksheet Patient Problems: Problems Problem Status Onset MSSA bacteremia Acute Sepsis Acute Urinary tract infection Acute Chest pain Acute Mediastinal mass Acute Pleural effusion Acute Pneumonia Acute
[2018-12-23] MEDS: oxyCODONE IR 5 MG TAB PO PRN ×2 (13:25→21:38)
--- NOTE | 2018-12-23 15:40 | PCMIDPN ---
Assessment/Plan: Assessment: MSSA bacteremia in setting of probable infected PICC line. PICC line removed the beginning of this stay. Clinically the patient is doing very well and continues to tolerate the IV nafcillin without trouble. Will plan to continue the IV nafcillin for total of 2 weeks and then switch over to oral Bactrim as per previous plan. Plan: 1. Continue IV nafcillin at present dosing. 2. Follow toxicity laboratory values in patient's clinical status. 12/23/18 15:38 Subjective: Patient is very pleasant in good spirits today. She is sitting up in bed and talkative. Denies any new complaints. States that her neck pain is gone and that any discomfort has moved to the shoulder on that side. No fevers or chills. Objective: Nafcillin # 7 Vital Signs Temp Pulse Resp BP Pulse Ox 37.1 C 100 18 146/97 H 95 12/23/18 07:53 12/23/18 07:53 12/23/18 07:53 12/23/18 07:53 12/23/18 07:53 Laboratory Results 12/23/18 10:25 12/23/18 10:25 12/22/18 12/23/18 12/24/18 05:59 05:59 05:59 Intake Total 980 500 Output Total 3900 600 Balance -2920 -100 - Physical Exam General Appearance: WD/WN, alert, no apparent distress, non-toxic Respiratory: lungs clear, normal breath sounds, No respiratory distress Cardiac/Chest: regular rate, rhythm, No tachycardia Extremities: non-tender, normal inspection Skin: normal color, warm/dry, No rash Neuro/Psych: alert, normal mood/affect, oriented x 3 ICD10 Worksheet Patient Problems: Problems Problem Status Onset MSSA bacteremia Acute Sepsis Acute Urinary tract infection Acute Chest pain Acute Mediastinal mass Acute Pleural effusion Acute Pneumonia Acute
[2018-12-23] MEDS ORDERED: WARFARIN SODIUM 5 MG TAB PO ONE (16:00)
[2018-12-23] MEDS: LORazepam 0.5 MG TAB PO PRN (21:38)
[2018-12-24] MEDS: ACETAMINOPHEN 325 MG TAB PO PRN ×3 (00:42→15:27)
[2018-12-24] MEDS: oxyCODONE IR 5 MG TAB PO PRN ×2 (01:23→11:55)
[2018-12-24] MEDS ORDERED: CYCLOBENZAPRINE 10 MG TAB PO PRN (01:34)
[2018-12-24] MEDS: NAFCILLIN SODIUM 2 GM in D5W 100 ML IV SCH ×6 (02:06→21:17)
[2018-12-24] MEDS: CEPACOL LOZENGE PO PRN (02:14)
[2018-12-24 04:46] LABS: INR 1.1 (0.83-1.16); PROTIME(PATIENT) 14.4 SEC (12.0-15.0)
[2018-12-24] MEDS: ESCITALOPRAM OXALATE 10 MG TAB PO SCH (08:25)
[2018-12-24] MEDS: FAMOTIDINE 20 MG TAB PO SCH ×2 (08:25→21:17)
[2018-12-24] MEDS: NICOTINE 21 MG/24 HR PATCH TD SCH (08:26)
[2018-12-24] MEDS: ENOXAPARIN 100 MG/ML SYR SC SCH ×2 (08:27→21:18)
[2018-12-24] MEDS: ENTECAVIR 0.5 MG PO SCH (08:33)
[2018-12-24] MEDS ORDERED: FLUoxetine 10 MG CAP PO SCH (09:00)
--- NOTE | 2018-12-24 13:41 | HOSPPROG ---
Hospitalist Progress Note Assessment/Plan: MSSA bacteremia: due to PICC line (placed 09/08). h/o drug abuse will hinder outpatient treatment No vegetations on echo mild epidural enhancement C5-6, no abscess. IV Nafcillin repeat imaging shows improvement, no abscess polyarticular arthritis, Met Foci at epidural tissue at C5/6 likely infectious: left shoulder without sig effusion, right hand improved with Toradol ; change to Advil due to nosebleeds ?Fever: none documented in the chart. Both nurse and pt report low grade fever. Cont with current abx. ID to evaluate. Will obtain BCx and CBC. Provide IVF. Cough: normal and reassuring lung exam. On RA. Will obtain a CXR tachycardia: intermittent infection noted follow sinus pruritis: around picc line cont benadryl cream Right basilic vein thrombophlebitis: warm compresses, NSAIDs Right Axillary and Subclavian acute DVT: Lovenox therapeutic started on 12/23 Warfarin started 12/23 Meth abuse: smokes it. Use to use it via IV. Counseled on cessation at length, CM to assist. Tobacco dependence: gulshan patch Thrombocytopenia: improving. Monitor nosebleeds Hodgkin's lymphoma: s/p 2 rounds ABVD; last Oct 2018 at [facility]. Transferring care to [facility]. once acute infection treated will need Port. cancer is highly-curable sen by onc- appreciated Chronic HBV: On Entercavir to prevent recurrence while on chemo. Serologies pending pain: scheduled tylenol and ibuprofen prn oxycodone Chronic HCV Diet: regular DVT ppx: no Lovenox with low platelets Disp: inpatient admission for IV abx, AC Subjective: no cp or sob. no n/v. has generalzied malasise. reports low grade fever. Objective: Vital Signs Temp Pulse Resp BP Pulse Ox 37.3 C 102 H 16 127/78 H 94 12/24/18 10:16 12/24/18 08:03 12/24/18 08:03 12/24/18 08:03 12/24/18 08:03 Microbiology 12/24/18 08:20 Respiratory Panel (PCR) - Final Nasal, Sinus - Anaerobic Tube/Swab No Organism Detected By Pcr Laboratory Results 12/23/18 10:25 12/23/18 10:25 02/01/19 02/02/19 02/03/19 05:59 05:59 05:59 Intake Total 500 200 Output Total 600 Balance -100 200 PT 14.4 SEC (12.0-15.0) 12/24/18 04:10 INR 1.10 (0.83-1.16) 12/24/18 04:10 - Physical Exam Constitutional: no apparent distress Eyes: PERRL, EOMI Ears, Nose, Mouth, Throat: moist mucous membranes, hearing normal Cardiovascular: regular rate and rhythym, No edema Respiratory: no respiratory distress, no rales or rhonchi, clear to auscultation Gastrointestinal: normoactive bowel sounds, soft, non-tender abdomen, no palpable masses Skin: warm Neurologic: AAOx3 Psychiatric: interacting appropriately, not anxious, not encephalopathic Lymph, Heme, Immunologic: No petechiae ICD10 Worksheet Patient Problems: Problems Problem Status Onset MSSA bacteremia Acute Sepsis Acute Urinary tract infection Acute Chest pain Acute Mediastinal mass Acute Pleural effusion Acute Pneumonia Acute
[2018-12-24] MEDS: NS W/ 20 KCl/L 1,000 ML IV SCH (14:01)
[2018-12-24 14:36] LABS: PLATELET COUNT 476 10^3/uL (150-400)
[2018-12-24] MEDS ORDERED: WARFARIN SODIUM 5 MG TAB PO SCH (16:00)
--- NOTE | 2018-12-24 16:03 | PCMIDPN ---
Assessment/Plan: Assessment: MSSA bacteremia in setting of probable infected PICC line. PICC line removed the beginning of this stay. Clinically the patient continues to do very well and is tolerating IV nafcillin without trouble. Will plan to continue the IV nafcillin for total of 2 weeks and then switch over to oral Bactrim as per previous plan. Plan: 1. Continue IV nafcillin at present dosing. 2. Follow toxicity laboratory values in patient's clinical status. 3. Check with hospitalist regarding nonsteroidal anti-inflammatory therapy for pain control and symptoms of? Costochondritis probably linked to the inflammatory response to her MSSA bacteremia. See no signs on examination of focal secondary septic arthritis. Subjective: Patient is resting comfortably in her hospital bed. Significant other is in the room as well. Patient complains of general achiness of her ribcage and sternal borders. No focus of pain. Patient notes feeling generally poorly today and ascribes some significance to a temperature of 99.5 degrees. Objective: Nafcillin # 8 Vital Signs Temp Pulse Resp BP Pulse Ox 37.1 C 102 H 16 127/78 H 94 12/24/18 15:26 12/24/18 08:03 12/24/18 08:03 12/24/18 08:03 12/24/18 08:03 Microbiology 12/24/18 08:20 Respiratory Panel (PCR) - Final Nasal, Sinus - Anaerobic Tube/Swab No Organism Detected By Pcr Laboratory Results 12/24/18 14:15 12/23/18 10:25 12/23/18 12/24/18 12/25/18 05:59 05:59 05:59 Intake Total 500 200 Output Total 600 Balance -100 200 - Physical Exam General Appearance: WD/WN, alert, no apparent distress, non-toxic Skin: normal color, warm/dry, No rash Neuro/Psych: alert, normal mood/affect, oriented x 3 ICD10 Worksheet Patient Problems: Problems Problem Status Onset MSSA bacteremia Acute Sepsis Acute Urinary tract infection Acute Chest pain Acute Mediastinal mass Acute Pleural effusion Acute Pneumonia Acute
[2018-12-24] MEDS: IBUPROFEN 200 MG TAB PO PRN ×2 (16:35→22:29)
[2018-12-24] MEDS: LORazepam 0.5 MG TAB PO PRN (21:17)
[2018-12-25] MEDS: NAFCILLIN SODIUM 2 GM in D5W 100 ML IV SCH ×6 (01:59→22:17)
[2018-12-25] MEDS: oxyCODONE IR 5 MG TAB PO PRN ×2 (05:33→22:17)
[2018-12-25] MEDS: IBUPROFEN 200 MG TAB PO PRN ×3 (05:33→19:55)
[2018-12-25 05:36] LABS: PLATELET COUNT 438 10^3/uL (150-400)
[2018-12-25 05:48] LABS: INR 1.11 (0.83-1.16); PROTIME(PATIENT) 14.5 SEC (12.0-15.0)
[2018-12-25] MEDS: ENOXAPARIN 100 MG/ML SYR SC SCH ×2 (09:01→19:56)
[2018-12-25] MEDS: ESCITALOPRAM OXALATE 10 MG TAB PO SCH (09:03)
[2018-12-25] MEDS: FAMOTIDINE 20 MG TAB PO SCH ×2 (09:03→19:55)
[2018-12-25] MEDS: NICOTINE 21 MG/24 HR PATCH TD SCH (09:04)
[2018-12-25] MEDS: ENTECAVIR 0.5 MG PO SCH (09:07)
[2018-12-25] MEDS: NS W/ 20 KCl/L 1,000 ML IV SCH (09:58)
--- NOTE | 2018-12-25 12:17 | HOSPPROG ---
Hospitalist Progress Note Assessment/Plan: MSSA bacteremia: due to PICC line (placed 09/08). h/o drug abuse will hinder outpatient treatment No vegetations on echo mild epidural enhancement C5-6, no abscess. IV Nafcillin repeat imaging shows improvement, no abscess polyarticular arthritis, Met Foci at epidural tissue at C5/6 likely infectious: left shoulder without sig effusion, right hand improved with Toradol ; change to Advil due to nosebleeds ?Fever on 12/24: none documented in the chart. Both nurse and pt report low grade fever. Cont with current abx. no changes to abx regimen. Feels great today. Bcx from 12/24 are no growth thus far Cough: normal and reassuring lung exam. On RA. Resolved, none reported today. fees better Costochondritis, cont with low dose Ibuprofen. Feels better tachycardia: intermittent infection noted follow sinus pruritis: around picc line cont benadryl cream Right basilic vein thrombophlebitis: warm compresses, NSAIDs Right Axillary and Subclavian acute DVT: Lovenox therapeutic started on 12/23 Warfarin started 12/23 Cont bridge Meth abuse: smokes it. Used to use it via IV. Counseled on cessation at length, CM to assist. Tobacco dependence: gulshan patch Thrombocytopenia: improving. Monitor nosebleeds Hodgkin's lymphoma: s/p 2 rounds ABVD; last Oct 2018 at [facility]. Transferring care to [facility]. once acute infection treated will need Port. cancer is highly-curable sen by onc- appreciated Chronic HBV: On Entercavir to prevent recurrence while on chemo. Serologies pending pain: scheduled tylenol and ibuprofen prn oxycodone Chronic HCV Diet: regular DVT ppx: no Lovenox with low platelets Disp: inpatient admission for IV abx, AC Subjective: no cp or sob. no n/v. feels better Objective: Vital Signs Temp Pulse Resp BP Pulse Ox 37.2 C 93 14 121/61 H 95 12/25/18 08:00 12/25/18 08:00 12/25/18 08:00 12/25/18 08:00 12/25/18 08:00 Microbiology 12/24/18 08:20 Respiratory Panel (PCR) - Final Nasal, Sinus - Anaerobic Tube/Swab No Organism Detected By Pcr Laboratory Results 12/25/18 05:20 12/23/18 10:25 12/24/18 12/25/18 12/26/18 05:59 05:59 05:59 Intake Total 200 900 Balance 200 900 PT 14.5 SEC (12.0-15.0) 12/25/18 05:20 INR 1.11 (0.83-1.16) 12/25/18 05:20 - Physical Exam Constitutional: no apparent distress Eyes: PERRL Ears, Nose, Mouth, Throat: moist mucous membranes, hearing normal Cardiovascular: regular rate and rhythym Respiratory: no respiratory distress, no rales or rhonchi, clear to auscultation Gastrointestinal: normoactive bowel sounds, soft, non-tender abdomen Skin: warm Neurologic: AAOx3 Psychiatric: interacting appropriately, not anxious, not encephalopathic Lymph, Heme, Immunologic: No petechiae ICD10 Worksheet Patient Problems: Problems Problem Status Onset MSSA bacteremia Acute Sepsis Acute Urinary tract infection Acute Chest pain Acute Mediastinal mass Acute Pleural effusion Acute Pneumonia Acute
--- NOTE | 2018-12-25 15:48 | ASMTCMCOM ---
CM Note CM Note Notes: CM met with patient and [facility] homeless liaison Carmen Julian ([email or web address] in back of chart). Carmen shared the patient is currently homeless and shared she is currently in process of obtaining housing. Carmen states Alaina has been processed and moved up on the list, she has the required paperwork submitted but will not have a place to discharge to at projected discharge date in 1 week. CM inquired about patient PCP, member states she is now able to connect with Ebony, a new provider at [facility]. CM shared the member has access to Care Management through [facility] as they are an Enhanced Clinical Partner. CM also shared info about [facility], gave member a flier with her state ID written on the removable card. We discussed a time line around follow ups, the patient states she understands she will likely discharge on 12/31-01/01. She states she will schedule an appointment with [facility] for 01/02 or so to follow up from the inpatient hospitalization and also for anti-coagulation monitoring. The patient will also call to schedule a follow up with [facility], Dr. Stacy for non-hodgkins lymphoma. CM inquired about mental health support, patient states she is considering connecting with [facility] and can also connect to mental health support through [facility]. CM encouraged the member connect with P as they have a variety of support services. Carmen and the patient discussed the possibility of the patient returning to the [facility] when she discharges, patient states she believes she will be able to return and is under the impression her locker is being held for her while she is hospitalized. Patient mentioned difficulty/concern getting to medical appointments. CM asked the patient if she knows about [employer] she states she does but when she tried to call them last they said she needed additional information. CM to submit Medical Certificate of Transportation online and encouraged patient to call [employer] in about a week to confirm the form has been processed, if there are issues she can request support from her support team at [facility]. Member mentioned interest in applying for disability, CM to send referral to [facility] and also to [facility] CM to share the patient is interested in learning more about her options. CM to follow. D/C Plan: [facility] Date Signed: 12/25/2018 03:47 PM Electronically Signed By:Marilee Grande
[2018-12-25] MEDS ORDERED: WARFARIN SODIUM 7.5 MG TAB PO SCH (16:00)
[2018-12-25] MEDS: LORazepam 0.5 MG TAB PO PRN (22:17)
[2018-12-26] MEDS: oxyCODONE IR 5 MG TAB PO PRN ×2 (02:13→21:38)
[2018-12-26] MEDS: NAFCILLIN SODIUM 2 GM in D5W 100 ML IV SCH ×6 (02:14→21:36)
[2018-12-26] MEDS: IBUPROFEN 200 MG TAB PO PRN ×3 (06:23→23:43)
[2018-12-26 06:37] LABS: INR 1.11 (0.83-1.16); PROTIME(PATIENT) 14.5 SEC (12.0-15.0)
[2018-12-26] MEDS: FAMOTIDINE 20 MG TAB PO SCH ×2 (09:42→21:37)
[2018-12-26] MEDS: NICOTINE 21 MG/24 HR PATCH TD SCH (09:42)
[2018-12-26] MEDS: ENOXAPARIN 100 MG/ML SYR SC SCH ×2 (09:42→21:36)
[2018-12-26] MEDS: ESCITALOPRAM OXALATE 10 MG TAB PO SCH (09:42)
[2018-12-26] MEDS: ENTECAVIR 0.5 MG PO SCH (11:06)
--- NOTE | 2018-12-26 11:12 | PCMIDPN ---
Assessment/Plan: Assessment/Plan: * MSSA bacteremia associated with PICC line and early cervical epidural inflammatory change: Tolerating nafcillin well. Has completed 10 of 14 days of IV therapy with plans to transition to oral Bactrim thereafter. Blood cultures performed on 12/24/2018 in association with fever are no growth to date. Neck pain is markedly improved. Will check LFTs on nafcillin therapy. * Left chest wall pain: Likely non infectious etiology. Continue to observe with ongoing therapy including NSAIDs. * Right hand pain: Resolved. * Entecavir use: Hepatitis-B core antibody is negative on serologic assessment currently. Hepatitis-B DNA is undetectable. Will repeat this to see if she has evidence of viremia although this would be unlikely on antiviral therapy. Will attempt to obtain records from [facility] to see if prior core antibody or DNA positive. May be candidate for vaccination based on current findings; would also include hepatitis A vaccination as she would benefit from immunity in the setting of chronic hepatitis-C. * Chronic hepatitis-C: Will address this once patient has completed therapy for MSSA bacteremia and chemotherapy for lymphoma. 12/26/18 11:07 12/26/18 11:12 Subjective: Patient complains of left chest wall pain. Left neck and right hand pain resolved. Objective: Vital Signs Temp Pulse Resp BP Pulse Ox 37.1 C 92 16 107/60 95 12/26/18 07:57 12/26/18 07:57 12/26/18 07:57 12/26/18 07:57 12/26/18 07:57 Laboratory Results 12/25/18 05:20 12/23/18 10:25 12/25/18 12/26/18 12/27/18 05:59 05:59 05:59 Intake Total 900 1800 Balance 900 1800 Nafcillin # 10 Blood cultures 12/24/2018 no growth - Physical Exam General Appearance: alert, no apparent distress EENT: No scleral icterus, No conjunctival petechiae Respiratory: lungs clear, No respiratory distress Neck: No tender lateral Cardiac/Chest: regular rate, rhythm Extremities: other (Right hand pain resolved with mild residual swelling of digits) Skin: No embolic lesions - Line/s LUE PICC Lines: No drainage, No erythema ICD10 Worksheet Patient Problems: Problems Problem Status Onset MSSA bacteremia Acute Sepsis Acute Urinary tract infection Acute Chest pain Acute Mediastinal mass Acute Pleural effusion Acute Pneumonia Acute
--- NOTE | 2018-12-26 14:26 | HOSPPROG ---
Hospitalist Progress Note Assessment/Plan: 33 year old female with hodgkins lymphoma, Hep B, admitted with MSSA bacteremia. MSSA bacteremia: likely due to a picc line placed on 09/08. Patient has history of drug abuse which will hinder outpatient treatment. Echo obtained which shows no vegetations. CT showing mild epidural enhancement at C5/C6 but no abscess. Repeat imaging shows improvement Infectious Disease following. -today is day 10 of 14 of nafcillin -infectious Disease following -monitor of LFTs Cough: normal and reassuring lung exam. On RA. Resolved, none reported today. fees better Costochondritis, cont with low dose Ibuprofen. Feels better tachycardia: intermittent -infection noted -follow -sinus pruritis: around picc line -cont benadryl cream Right basilic vein thrombophlebitis: warm compresses, NSAIDs Right Axillary and Subclavian acute DVT: Ultrasound on December 22 positive for acute upper extremity DVT. On Lovenox bridge Coumadin started 12/23, INR today 1.1 Meth abuse: smokes it. Used to use it via IV. Counseled on cessation at length, CM to assist. Tobacco dependence: gulshan patch Thrombocytopenia: improving. Monitor nosebleeds Hodgkin's lymphoma: s/p 2 rounds ABVD; last Oct 2018 at [facility]. Transferring care to [facility]. consulted by oncology while here. -once acute infection treated will need Port. Chronic HBV: On Entercavir to prevent recurrence while on chemo. Serologies pending pain: scheduled tylenol and ibuprofen -prn oxycodone Chronic HCV, should be treated along with Hep B, but after acute illness resolved. Diet: regular DVT ppx: lovenox Fluids- PO Lytes- WNl Nutrition- regular Cor- Full Dispo- inpatient for MSSA bacteremia and acute DVT. Subjective: no complaints. doing well. Objective: Vital Signs Temp Pulse Resp BP Pulse Ox 37.1 C 92 16 107/60 95 12/26/18 07:57 12/26/18 07:57 12/26/18 07:57 12/26/18 07:57 12/26/18 07:57 Laboratory Results 12/25/18 05:20 12/25/18 12/26/18 12/27/18 05:59 05:59 05:59 Intake Total 900 1800 Balance 900 1800 PT 14.5 SEC (12.0-15.0) 12/26/18 06:20 INR 1.11 (0.83-1.16) 12/26/18 06:20 - Physical Exam Constitutional: no apparent distress, appears nourished, not in pain Eyes: PERRL, anicteric sclera, EOMI Ears, Nose, Mouth, Throat: moist mucous membranes, hearing normal, ears appear normal, no oral mucosal ulcers Cardiovascular: regular rate and rhythym, no murmur, rub, or gallop Respiratory: no respiratory distress, no rales or rhonchi, clear to auscultation Gastrointestinal: normoactive bowel sounds, soft, non-tender abdomen, no palpable masses Genitourinary: no bladder fullness, no bladder tenderness, no renal bruits Skin: no rashes or abrasions, no fluctuance, no induration Musculoskeletal: full muscle strength, no muscle tenderness, normal joint ROM Neurologic: AAOx3, sensation intact bilaterally Psychiatric: interacting appropriately, not anxious, not encephalopathic, thought process linear Lymph, Heme, Immunologic: no cervical LAD, no supraclavicular LAD ICD10 Worksheet Patient Problems: Problems Problem Status Onset MSSA bacteremia Acute Sepsis Acute Urinary tract infection Acute Chest pain Acute Mediastinal mass Acute Pleural effusion Acute Pneumonia Acute
--- NOTE | 2018-12-26 14:44 | SOAPPROG ---
SOAP Progress Note Assessment/Plan: Assessment: A/P: 33 yo woman partially treated classic (NS) Hodgkin's lymphoma. Admitted with MSSA bacteremia from PICC. * MSSA bacteremia with ?C5-C6 inflammatory process: on nafcillin, R PICC removed. Now has PICC on L. * St. IIB Hodgkins: partially treated at [facility]. She has new insurance effective 12/23/18 and would like to reestablish with Dr. Stacy to complete tx. She has only had one full cycle of ABVD so far. Last chemo was before 2017. She understands that she needs to get started again. She should get a port placed during this admission. * ?Hep. B: prior entecavir tx. * Hep C, untreated. * DVT R arm - on anticoagulation - she will need anticoagulation for 3-6 months * Social situation, drug abuse: social work assistance. Plan: Abx per ID anticoagulation port ABVD with Dr. Stacy Objective: Vital Signs Temp Pulse Resp BP Pulse Ox 37.1 C 92 16 107/60 95 12/26/18 07:57 12/26/18 07:57 12/26/18 07:57 12/26/18 07:57 12/26/18 07:57 Laboratory Results 12/25/18 05:20 12/24/18 12/25/18 12/26/18 23:59 23:59 23:59 Intake Total 1100 1300 500 Balance 1100 1300 500 PT 14.5 SEC (12.0-15.0) 12/26/18 06:20 INR 1.11 (0.83-1.16) 12/26/18 06:20 Physical Exam - Physical Exam General Appearance: alert, other (very talkative) Respiratory: lungs clear Cardiac/Chest: regular rate, rhythm Abdomen: normal bowel sounds, non-tender, soft Skin: cyanosis Extremities: normal range of motion Neuro/Psych: no motor/sensory deficits, alert, oriented x 3 ICD10 Worksheet Patient Problems: Problems Problem Status Onset Chest pain Acute Pneumonia Acute Pleural effusion Acute Mediastinal mass Acute Sepsis Acute Urinary tract infection Acute MSSA bacteremia Acute
[2018-12-26] MEDS ORDERED: WARFARIN SODIUM 7.5 MG TAB PO ONE (16:00)
[2018-12-26] MEDS: LORazepam 0.5 MG TAB PO PRN (17:04)
[2018-12-27] MEDS: NAFCILLIN SODIUM 2 GM in D5W 100 ML IV SCH ×6 (02:47→21:50)
[2018-12-27 06:40] LABS: INR 1.2 (0.83-1.16); PROTIME(PATIENT) 15.4 SEC (12.0-15.0)
[2018-12-27] MEDS: ENOXAPARIN 100 MG/ML SYR SC SCH ×2 (08:53→20:38)
[2018-12-27] MEDS: IBUPROFEN 200 MG TAB PO PRN ×2 (08:55→20:39)
[2018-12-27] MEDS: ESCITALOPRAM OXALATE 10 MG TAB PO SCH (08:55)
[2018-12-27] MEDS: FAMOTIDINE 20 MG TAB PO SCH ×2 (08:55→20:38)
[2018-12-27] MEDS: NICOTINE 21 MG/24 HR PATCH TD SCH (08:56)
[2018-12-27] MEDS: ENTECAVIR 0.5 MG PO SCH (08:59)
--- NOTE | 2018-12-27 14:16 | SOAPPROG ---
SOAP Progress Note Assessment/Plan: Assessment: A/P: 33 yo woman partially treated classic (NS) Hodgkin's lymphoma. Admitted with MSSA bacteremia from PICC. * MSSA bacteremia with ?C5-C6 inflammatory process: on nafcillin, R PICC removed. Now has PICC on L. * St. IIB Hodgkins: partially treated at [facility]. She has new insurance effective 12/23/18 and would like to reestablish with Dr. Stacy to complete tx. She has only had one full cycle of ABVD so far. Last chemo was before 2017. She understands that she needs to get started again. She should get a port placed during this admission. * ?Hep. B: prior entecavir tx. * Hep C, untreated. * DVT R arm - on anticoagulation - she will need anticoagulation for 3-6 months * Social situation, drug abuse: social work assistance. * * Pain under L breast/sternum - point tender over costochondral junction. Hurts with deep breath, but I think most likely is MSK in nature. will watch Plan: Abx per ID anticoagulation port ABVD with Dr. Stacy Subjective: C/O some pain under L breast. Objective: Vital Signs Temp Pulse Resp BP Pulse Ox 37.2 C 97 16 137/85 H 96 12/27/18 08:00 12/27/18 08:00 12/27/18 08:00 12/27/18 08:00 12/27/18 08:00 Laboratory Results 12/27/18 08:50 12/27/18 08:50 12/25/18 12/26/18 12/27/18 23:59 23:59 23:59 Intake Total 1300 1500 Balance 1300 1500 PT 15.4 SEC (12.0-15.0) H 12/27/18 06:21 INR 1.20 (0.83-1.16) H 12/27/18 06:21 Physical Exam - Physical Exam General Appearance: alert, no apparent distress Respiratory: lungs clear Cardiac/Chest: regular rate, rhythm, other (mild tenderness at costochondral junction in L inframammary area) Neuro/Psych: alert, oriented x 3 ICD10 Worksheet Patient Problems: Problems Problem Status Onset MSSA bacteremia Acute Sepsis Acute Urinary tract infection Acute Chest pain Acute Mediastinal mass Acute Pleural effusion Acute Pneumonia Acute
--- NOTE | 2018-12-27 14:56 | HOSPPROG ---
Hospitalist Progress Note Assessment/Plan: 33 year old female with hodgkins lymphoma, Hep B, admitted with MSSA bacteremia. MSSA bacteremia: likely due to a picc line placed on 09/08. Patient has history of drug abuse which will hinder outpatient treatment. Echo obtained which shows no vegetations. CT showing mild epidural enhancement at C5/C6 but no abscess. Repeat imaging shows improvement Infectious Disease following. -today is day 11 of 14 of nafcillin -infectious Disease following -monitor of LFTs Cough: normal and reassuring lung exam. On RA. Resolved, none reported today. fees better Costochondritis, cont with low dose Ibuprofen. Feels better tachycardia: intermittent -infection noted -follow -sinus pruritis: around picc line -cont benadryl cream Right basilic vein thrombophlebitis: warm compresses, NSAIDs Right Axillary and Subclavian acute DVT: Ultrasound on December 22 positive for acute upper extremity DVT. On Lovenox bridge Coumadin started 12/23, INR today 1.1 Meth abuse: smokes it. Used to use it via IV. Counseled on cessation at length, CM to assist. Tobacco dependence: gulshan patch Thrombocytopenia: improving. Monitor nosebleeds Hodgkin's lymphoma: s/p 2 rounds ABVD; last Oct 2018 at [facility]. Transferring care to [facility]. consulted by oncology while here. -once acute infection treated will need Port. -will likely have port placed once IV abx have been completed. Chronic HBV: On Entercavir to prevent recurrence while on chemo. Serologies pending pain: scheduled tylenol and ibuprofen -prn oxycodone Chronic HCV, should be treated along with Hep B, but after acute illness resolved. Diet: regular DVT ppx: lovenox Fluids- PO Lytes- WNl Nutrition- regular Cor- Full Dispo- inpatient for MSSA bacteremia and acute DVT. Subjective: no complaints. Objective: Vital Signs Temp Pulse Resp BP Pulse Ox 37.2 C 97 16 137/85 H 96 12/27/18 08:00 12/27/18 08:00 12/27/18 08:00 12/27/18 08:00 12/27/18 08:00 Laboratory Results 12/27/18 08:50 12/27/18 08:50 12/26/18 12/27/18 12/28/18 05:59 05:59 05:59 Intake Total 1800 1000 Balance 1800 1000 PT 15.4 SEC (12.0-15.0) H 12/27/18 06:21 INR 1.20 (0.83-1.16) H 12/27/18 06:21 - Physical Exam Constitutional: no apparent distress, appears nourished, not in pain Eyes: PERRL, anicteric sclera, EOMI Ears, Nose, Mouth, Throat: moist mucous membranes, hearing normal, ears appear normal, no oral mucosal ulcers Cardiovascular: regular rate and rhythym, no murmur, rub, or gallop Respiratory: no respiratory distress, no rales or rhonchi, clear to auscultation Gastrointestinal: normoactive bowel sounds, soft, non-tender abdomen, no palpable masses Genitourinary: no bladder fullness, no bladder tenderness, no renal bruits Skin: no rashes or abrasions, no fluctuance, no induration Musculoskeletal: full muscle strength, no muscle tenderness, normal joint ROM Neurologic: AAOx3, sensation intact bilaterally Psychiatric: interacting appropriately, not anxious, not encephalopathic, thought process linear Lymph, Heme, Immunologic: no cervical LAD, no supraclavicular LAD ICD10 Worksheet Patient Problems: Problems Problem Status Onset MSSA bacteremia Acute Sepsis Acute Urinary tract infection Acute Chest pain Acute Mediastinal mass Acute Pleural effusion Acute Pneumonia Acute
[2018-12-27] MEDS ORDERED: WARFARIN SODIUM 5 MG TAB PO ONE (16:00)
[2018-12-27] MEDS ORDERED: MELATONIN 3 MG TAB PO PRN (21:25)
[2018-12-27] MEDS: MELATONIN 3 MG TAB PO SCH (21:50)
[2018-12-28] MEDS: NAFCILLIN SODIUM 2 GM in D5W 100 ML IV SCH ×6 (02:43→21:15)
[2018-12-28] MEDS: LORazepam 0.5 MG TAB PO PRN ×2 (02:43→21:23)
[2018-12-28 06:46] LABS: INR 1.23 (0.83-1.16); PROTIME(PATIENT) 15.7 SEC (12.0-15.0)
[2018-12-28 06:53] LABS: PLATELET COUNT 535 10^3/uL (150-400)
[2018-12-28] MEDS: ENOXAPARIN 100 MG/ML SYR SC SCH ×2 (09:41→21:16)
[2018-12-28] MEDS: ENTECAVIR 0.5 MG PO SCH (09:42)
[2018-12-28] MEDS: ESCITALOPRAM OXALATE 10 MG TAB PO SCH (09:42)
[2018-12-28] MEDS: FAMOTIDINE 20 MG TAB PO SCH ×2 (09:44→21:16)
[2018-12-28] MEDS: NICOTINE 21 MG/24 HR PATCH TD SCH (10:30)
[2018-12-28] MEDS: oxyCODONE IR 5 MG TAB PO PRN (10:35)
--- NOTE | 2018-12-28 13:48 | PCMIDPN ---
Assessment/Plan: Assessment: A 33-year-old woman with MSSA bloodstream infection likely from her longstanding PICC line with minimal care complicated by metastatic foci to the epidural tissue at C5/C6. She is progressing well without active signs of infection. Can plan to place port for IV access for chemotherapy even of her IV therapy has not finished to completion. She can receive her chemotherapy at any point going forward as her MSSA bloodstream infection has resolved and the extra 2 weeks of oral therapy is to ensure complete eradication. 1. MSSA bloodstream infection, source likely longstanding indwelling PICC line; removal at admission served as source control 2. Right upper extremity DVT 3. Left upper extremity radiculopathy with exacerbation by C5/C6 epidural inflammation, likely MSSA metastatic focus; improved 4. Stage IIB Hodgkin's lymphoma, last treatment with ABVD in October of 2018 5. Active, untreated hepatitis C virus infection; chronic 6. Chronic methamphetamine abuse Plan: 1. Continue nafcillin 2 g q.4 hours plan at least 2 weeks of IV therapy with end date December 31 2. Starting December 31, Bactrim 2DS tablets 3 times daily (10mg/kg/day) for 2 additional weeks (end date 01/14/19) 3. No indication for entecavir 4. Treatment for hepatitis C virus infection as outpatient 5. Discussed in detail potential side effects of nafcillin including antibiotic associated diarrhea, rash, C diff colitis, phlebitis Boni Dominguez MD Infectious Diseases 12/28/18 13:46 Subjective: No fever or chills. Denies diarrhea, nausea, rash. Appetite normal. Ambulating without difficulty. No new concerns today. Objective: Vital Signs Temp Pulse Resp BP Pulse Ox 37.2 C 111 H 14 125/73 H 97 12/28/18 08:00 12/28/18 10:41 12/28/18 10:41 12/28/18 08:00 12/28/18 10:41 Laboratory Results 12/28/18 06:20 12/28/18 06:20 12/27/18 12/28/18 12/29/18 05:59 05:59 05:59 Intake Total 1000 2100 Balance 1000 2100 - Physical Exam General Appearance: alert, no apparent distress, non-toxic EENT: No scleral icterus Skin: No rash Neuro/Psych: alert, oriented x 3 - Time Spent With Patient Time Spent with Patient: greater than 25 minutes Time Spent with Patient: Greater than 25 minutes spent on this patients care, greater than 50% of time spent counseling, educating, and coordinating care regarding the above mentioned plan. ICD10 Worksheet Patient Problems: Problems Problem Status Onset MSSA bacteremia Acute Sepsis Acute Urinary tract infection Acute Chest pain Acute Mediastinal mass Acute Pleural effusion Acute Pneumonia Acute
--- NOTE | 2018-12-28 15:36 | SOAPPROG ---
SOAP Progress Note Assessment/Plan: Assessment: A/P: 33 yo woman partially treated classic (NS) Hodgkin's lymphoma. Admitted with MSSA bacteremia from PICC. * MSSA bacteremia with ?C5-C6 inflammatory process: on nafcillin, R PICC removed. Now has PICC on L. * St. IIB Hodgkins: partially treated at [facility]. She has new insurance effective 12/23/18 and would like to reestablish with Dr. Stacy to complete tx. She has only had one full cycle of ABVD so far. Last chemo was before 2017. She understands that she needs to get started again. Hospitalist service to contact Dr. Herrera Frey for port placement. * * ?Hep. B: prior entecavir tx. * Hep C, untreated. * DVT R arm - on anticoagulation - she will need anticoagulation for 3-6 months * Social situation, drug abuse: social work assistance. * Pain under L breast/sternum - point tender over costochondral junction. Hurts with deep breath, but I think most likely is MSK in nature. No change. still point tender at sternocostal junction. * Plan: Abx per ID anticoagulation port - Dr. Frey ABVD to resume as soon as infection felt to be cleared Patient is nearing discharge. Please have her follow up in the office within 1 week of discharge for additional treatment planning Subjective: Anxious to go home. Feels good. Objective: Vital Signs Temp Pulse Resp BP Pulse Ox 37.2 C 111 H 14 125/73 H 97 12/28/18 08:00 12/28/18 10:41 12/28/18 10:41 12/28/18 08:00 12/28/18 10:41 Laboratory Results 12/28/18 06:20 12/28/18 06:20 12/26/18 12/27/18 12/28/18 23:59 23:59 23:59 Intake Total 1500 1500 600 Balance 1500 1500 600 PT 15.7 SEC (12.0-15.0) H 12/28/18 06:20 INR 1.23 (0.83-1.16) H 12/28/18 06:20 Physical Exam - Physical Exam General Appearance: alert, no apparent distress Respiratory: lungs clear, normal breath sounds Cardiac/Chest: regular rate, rhythm, No edema, No gallop, No JVD Abdomen: normal bowel sounds, non-tender, soft Lymphatic: no adenopathy Neuro/Psych: alert, other (somewhat pressured speech) ICD10 Worksheet Patient Problems: Problems Problem Status Onset Chest pain Acute Pneumonia Acute Pleural effusion Acute Mediastinal mass Acute Sepsis Acute Urinary tract infection Acute MSSA bacteremia Acute
[2018-12-28] MEDS: IBUPROFEN 200 MG TAB PO PRN (15:47)
[2018-12-28] MEDS ORDERED: WARFARIN SODIUM 5 MG TAB PO ONE (16:00)
--- NOTE | 2018-12-28 16:38 | HOSPPROG ---
Hospitalist Progress Note Assessment/Plan: 33 year old female with hodgkins lymphoma, Hep B, admitted with MSSA bacteremia. MSSA bacteremia: likely due to a picc line placed on 09/08. Patient has history of drug abuse which will hinder outpatient treatment. Echo obtained which shows no vegetations. CT showing mild epidural enhancement at C5/C6 but no abscess. Repeat imaging shows improvement Infectious Disease following. -today is day 12 of 14 of nafcillin. Will complete therapy on December 31 and transition to oral Bactrim -infectious Disease following -monitor of LFTs -discussed with infectious disease, who would be comfortable with patient getting port for chemotherapy on Wednesday Costochondritis, cont with low dose Ibuprofen. Feels better tachycardia: intermittent -infection noted -follow -sinus pruritis: around picc line -cont benadryl cream Right basilic vein thrombophlebitis: warm compresses, NSAIDs Right Axillary and Subclavian acute DVT: Ultrasound on December 22 positive for acute upper extremity DVT. -on Lovenox and Coumadin currently. -hold Coumadin and continue Lovenox in order to place a port for chemotherapy on Wednesday. Meth abuse: smokes it. Used to use it via IV. Counseled on cessation at length, CM to assist. Tobacco dependence: gulshan patch Hodgkin's lymphoma: s/p 2 rounds ABVD; last Oct 2018 at [facility]. Transferring care to [facility]. consulted by oncology while here. -hematology following -discussed case with Hematology today, will plan for port placement on WednesdayDecember 30. -I discussed this with Dr. Frey from General surgery who replaced support WednesdayDecember 30 per request that Coumadin be held. Lovenox to be continued until the night before. Chronic HBV: On Entercavir to prevent recurrence while on chemo. Serologies pending pain: scheduled tylenol and ibuprofen -prn oxycodone Chronic HCV, should be treated along with Hep B, but after acute illness resolved. Diet: regular DVT ppx: lovenox, hold Coumadin Fluids- PO Lytes- WNl Nutrition- regular Cor- Full Dispo- inpatient for MSSA bacteremia and acute DVT. Subjective: No complaints Objective: Vital Signs Temp Pulse Resp BP Pulse Ox 37.2 C 111 H 14 125/73 H 97 12/28/18 08:00 12/28/18 10:41 12/28/18 10:41 12/28/18 08:00 12/28/18 10:41 Laboratory Results 12/28/18 06:20 12/28/18 06:20 12/27/18 12/28/18 12/29/18 05:59 05:59 05:59 Intake Total 1000 2100 Balance 1000 2100 PT 15.7 SEC (12.0-15.0) H 12/28/18 06:20 INR 1.23 (0.83-1.16) H 12/28/18 06:20 - Physical Exam Constitutional: no apparent distress, appears nourished, not in pain Eyes: PERRL, anicteric sclera, EOMI Ears, Nose, Mouth, Throat: moist mucous membranes, hearing normal, ears appear normal, no oral mucosal ulcers Cardiovascular: regular rate and rhythym, no murmur, rub, or gallop Respiratory: no respiratory distress, no rales or rhonchi, clear to auscultation Gastrointestinal: normoactive bowel sounds, soft, non-tender abdomen, no palpable masses Genitourinary: no bladder fullness, no bladder tenderness, no renal bruits Skin: no rashes or abrasions, no fluctuance, no induration Musculoskeletal: full muscle strength, no muscle tenderness, normal joint ROM Neurologic: AAOx3, sensation intact bilaterally Psychiatric: interacting appropriately, not anxious, not encephalopathic, thought process linear Lymph, Heme, Immunologic: no cervical LAD, no supraclavicular LAD ICD10 Worksheet Patient Problems: Problems Problem Status Onset MSSA bacteremia Acute Sepsis Acute Urinary tract infection Acute Chest pain Acute Mediastinal mass Acute Pleural effusion Acute Pneumonia Acute
--- NOTE | 2018-12-28 17:12 | SOAPPROG ---
SOAP Progress Note Assessment/Plan: Assessment: 33-YEAR-OLD FEMALE WITH HODGKIN'S WITH A MEDIASTINAL MASS IN NEED OF A PORT FOR CHEMOTHERAPY. RISKS AND OPTIONS FULLY DISCUSSED SHE HAS A PICC LINE ON THE LEFT WHICH WAS DIFFICULT TO PUT IN WE WILL TRY LEFT SIDED PORT BUT MAY HAVE TO USE A RIGHT IJ PORT SHE DOES HAVE A DVT IN HER RIGHT SUBCLAVIAN VEIN Plan: PORT ON Wednesday12/28/18 17:09 Objective: Vital Signs Temp Pulse Resp BP Pulse Ox 37.2 C 111 H 14 125/73 H 97 12/28/18 08:00 12/28/18 10:41 12/28/18 10:41 12/28/18 08:00 12/28/18 10:41 Laboratory Results 12/28/18 06:20 12/28/18 06:20 12/27/18 12/28/18 12/29/18 05:59 05:59 05:59 Intake Total 1000 2100 Balance 1000 2100 PT 15.7 SEC (12.0-15.0) H 12/28/18 06:20 INR 1.23 (0.83-1.16) H 12/28/18 06:20 ICD10 Worksheet Patient Problems: Problems Problem Status Onset MSSA bacteremia Acute Sepsis Acute Urinary tract infection Acute Chest pain Acute Mediastinal mass Acute Pleural effusion Acute Pneumonia Acute
--- NOTE | 2018-12-28 18:06 | ASMTCMCOM ---
CM Note CM Note Notes: Pt here for IV abx, will finish on Wednesday and transition to orals. Pt has hx of Hodgkins Lymphoma that was partially treated and will get a port placed for chemo treatment. Matters are complicated because pt smokes meth, CM to discuss resources for sobriety. DC Plan: Independent Date Signed: 12/28/2018 06:06 PM Electronically Signed By:Ronda Renee RN
--- NOTE | 2018-12-28 20:38 | PDCONSULT ---
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 Boni Dominguez Date of Evaluation: 12/22/2018. Interviewed patient for 60min with boyfriend of 7 years, Juan F, present Please refer to medical Admission H&P for details. BRIEF HISTORY: 33yo F with PMHx of Hep C stage IIB Hodgkins lymphoma dxd in 2018 , admitted to [facility] 12/15/18 with MSSA bloodstream infection presumed due to longstanding indwelling PICC line, who has had interruptions in her treatments due to insurance issues and homelessness. She also has a long history of methamphetamine use, but denies any since 3 weeks prior to admission. Pt currently admits feeling depressed, with occasional tearfulness, easily irritable, feels sad, increased sleep, no energy, low concentration , normal appetite. She feels depression is situational due to her cancer diagnosis and acute medical issues, but also finds herself perseverative on worries of dying and can't get thoughts out of her mind. She denies any suicidal thoughts whatsoever. She feels that she has been sad with increased irritability which causes strain on her interpersonal relationships, notably with boyfriend. Regarding substance use, she denies any cravings, and reports she was told in no uncertain terms by her hospital physician that she will if she resumes using drugs, and she reports being scared to , and is hopeful for response to treatment, knowing Hodgkin's lymphoma has a better prognosis. She denies hx of experiencing psychosis, except related to her drug use. She denies being ever diagnosed with bipolar mood disorder. Denies clear hx of manic or hypomanic sxs including decreased need for sleep. States during longest period of sobriety 4 years she was not on any psychotropic medications. PAST PSYCHIATRIC/SUBSTANCE USE HX: No prior inpatient psychiatric treatment although was sent for a psychiatric evaluation in [place] in 2008 and diagnosed with schizophrenia, and was prescribed Thorazine which she never took. States this was in context of substance use. She was not in agreement with this diagnosis. Also was diagnosed with ADHD at one point, and states medications for this made her sleepy, so she discontinued them. 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 States her mood was stable and she was on no psychiatric medications during this time. Spent 2 years at [facility], an intense Behavioral modification drug rehabilitation program. Outpatient [facility] through [facility] 3 [facility]. Remote history of suicide ideation. Diagnosed with Depression in high school, on Zoloft. Was inconsistent with compliance, this was Rxd by her family practitioner. No other psychiatric medications since then. More recently started process to establish outpatient mental health treatment at [facility]. Did intake, has not had any f/u yet. Started smoking cigarettes at age 10. Then THC, and edibles in [place] for sleep. Eventually Methamphetamines at age 17, and IV meth at age 19, daily. Most recently was abstinent for 5 months from May 2018 to Nov 2018, with relapse of smoking meth once 2 weeks prior to admission. Denies other substance use or EtOH. +tobacco. Did not explore history of trauma. PAST MEDICAL/SURGICAL HX: Hodgkins Lymphoma with superior mediastinal mass and LN involvement Hep C +, Hep B hyperthyroid during , hx of ovarian cyst cleft palate surgery, cholecystectomy, bilateral tubal ligation FAMILY PSYCH HX: Father-EtOHicneelam was on [place] for a period of time and dxd Bipolar Mother, sister-"on a bunch of meds" and sister "also on ADHD pills" maternal aunt- schizophrenia. LEGAL: denies any current/recent. States CPS removed her 3 kids when they were ages 1,2,3yo; they are with paternal grandparents in [place], now ages 11,12, and 13yo. She maintains contact with them, and feels they are in the right place. SOCIAL HX: Grew up in [place], [place], [place] [phone]. Lived with parents from [facility], then parents split and pt was with her mother. She changed schools 12x's in next few years due to mother's unstable relationships with men thereafter. Returned to l/ w father 8-11th grade. Obtained GED. Has one 2y older sister who is an RN in [place], doesn't like her. Mother still in [place], some contact. Father 10 years ago due to endoscopy complication, with EtOH hx. They were very close, "like best friends." Was planning move from [place] to [place], came through [place] 3 yrs ago and stayed. Has been together with current boyfriend x 7 years. Reports being happy in current relationship. 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 Her housing application/process has been expedited and she has been approved for some new builds in [place] in January. Has transportation issues. MSE: Casually dressed, readily sat upright in hospital bed for interview, IVs connected. BF lying next to her on couch which had been rearranged to align with bed. Engaging, cooperative, good eye contact, nml psychomotor activity, nml speech rate/vol, articulate, +talkative but not pressured. Mood sad and easily irritable, affect full, briefly tearful at times, thought processes linear, goal-directed, reality based, seems readily forthcoming with sharing her history and difficulties/struggles also consistently reports feeling hopeful about future and motivated to fully engage in treatment and sobriety. She reports perseverative thoughts/worries about dying which are hard to redirect in order to use any other coping strategies she has learned in past. She clearly states she does not want to , but can not stop worrying about dying b/c she has cancer. Denies any plan/intent/thoughts to harm herself or others. Denies any AH/VH or other psychotic symptoms. There was no paranoia or delusional thinking. Insight seemed good, judgment fair, cognition was intact. Alert/oriented x 4. ASSESSMENT: Adjustment disorder with depressed mood and anxiety Stimulant use disorder, severe, in early remission PLAN: Discussed treatment options including medications. Discussed risks/benefits and agreed upon an SSRI low dose for depression symptoms, perseverative thoughts/ worries and irritability. Reviewed with pharmacist Fernando to check drug-drug interactions with her meds/anticoag/ABXs/chemo. Recommended start Lexapro 5mg QD. Monitor for subjective improvement. Although pt does not have hx of BMD or any sxs, there is a possible fam hx of BMD so will need to monitor for emergence of any hypomanic/manic sxs including decr sleep, incr psychom activity, incr irritability or euphoria etc. Pt informed adn expressed understanding. F/U with [facility] for therapy, and schedule with outpatient psychiatrist. In meantime, will need to have primary care provider f/u medications. Need strongly to continue abstinence from meth, and any other drugs/EtOH due to significant health risks, and adverse effects on mental health. Pt reports no cravings and does not want to jeopardize her health by relapse. 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 Due to addiction history, would limit use, taper or avoid any medications with habit-forming risks including narcotics and benzodiazepines. Thank you for consulting Behavioral Health. Will continue to follow and make recommendations as needed. Do not hesitate to call with any questions.
[2018-12-28] MEDS: MELATONIN 3 MG TAB PO SCH (21:34)
[2018-12-29] MEDS: NAFCILLIN SODIUM 2 GM in D5W 100 ML IV SCH ×6 (01:58→22:02)
[2018-12-29 06:09] LABS: PLATELET COUNT 551 10^3/uL (150-400)
[2018-12-29 06:17] LABS: INR 1.31 (0.83-1.16); PROTIME(PATIENT) 16.5 SEC (12.0-15.0)
[2018-12-29] MEDS: IBUPROFEN 200 MG TAB PO PRN (07:57)
[2018-12-29] MEDS: ESCITALOPRAM OXALATE 10 MG TAB PO SCH (09:34)
[2018-12-29] MEDS: FAMOTIDINE 20 MG TAB PO SCH ×2 (09:34→21:01)
[2018-12-29] MEDS: ENTECAVIR 0.5 MG PO SCH (09:35)
[2018-12-29] MEDS: ENOXAPARIN 100 MG/ML SYR SC SCH ×2 (09:36→21:01)
[2018-12-29] MEDS: NICOTINE 21 MG/24 HR PATCH TD SCH (09:37)
[2018-12-29] MEDS: oxyCODONE IR 5 MG TAB PO PRN (09:49)
[2018-12-29] MEDS: CEPACOL LOZENGE PO PRN (09:50)
--- NOTE | 2018-12-29 11:32 | SOAPPROG ---
SOAP Progress Note Assessment/Plan: Assessment/plan: 33 y/o F admitted with MSSA bacteremia from PICC line. Hodgkin's lymphoma. Port placement scheduled for Wednesday. All risks and options discussed. R axillary and subclavian DVT. Hold coumadin until after surgery. Ok to have lovenox until day of surgery. Hep B and Hep C positive Meth abuse. Appreciate CM input. S: No complaints O: Alert Afebrile RRR CTAB, no increased WOB Abdomen: soft, nontender, nondistended 12/29/18 11:29 Objective: Vital Signs Temp Pulse Resp BP Pulse Ox 36.9 C 96 18 121/75 H 95 12/29/18 07:49 12/29/18 07:49 12/29/18 07:49 12/29/18 07:49 12/29/18 07:49 Laboratory Results 12/29/18 06:00 12/29/18 06:00 12/28/18 12/29/18 12/30/18 05:59 05:59 05:59 Intake Total 2100 600 Balance 2100 600 PT 16.5 SEC (12.0-15.0) H 12/29/18 06:00 INR 1.31 (0.83-1.16) H 12/29/18 06:00 ICD10 Worksheet Patient Problems: Problems Problem Status Onset MSSA bacteremia Acute Sepsis Acute Urinary tract infection Acute Chest pain Acute Mediastinal mass Acute Pleural effusion Acute Pneumonia Acute
--- NOTE | 2018-12-29 14:34 | PCMIDPN ---
Assessment/Plan: # MSSA bacteremia associated with PICC line and early cervical epidural inflammatory change: Tolerating nafcillin well - ANC normal, Cr normal, tiny LFT elevation, no rash. Blood cx cleared rapidly in less than 2 days, TTE neg of valvular lesions --stop date 12/31/18 then will transition to PO Bactrim therapy as planned in Dr. Dominguez' note --okay w port placement tomorrow --likely can resume chemo at time of dc --may need repeat MRI C spine at some point # Chronic hepatitis-C: Will address this once patient has completed therapy for MSSA bacteremia and chemotherapy for lymphoma. Meds Nafcillin 2gm IV q4h Microbiology 12/24/18 Blood cx (2) NGTD 12/17/18 Blood cx (2) Neg 12/15/18 Blood cx : MSSA Subjective: still c/o pain across shoulders and neck but improved L lateral chest pain Objective: Vital Signs Temp Pulse Resp BP Pulse Ox 36.9 C 96 18 121/75 H 95 12/29/18 07:49 12/29/18 07:49 12/29/18 07:49 12/29/18 07:49 12/29/18 07:49 Laboratory Results 12/29/18 06:00 12/29/18 06:00 12/28/18 12/29/18 12/30/18 05:59 05:59 05:59 Intake Total 2100 600 Balance 2100 600 - Physical Exam General Appearance: alert, no apparent distress, non-toxic EENT: No scleral icterus Respiratory: lungs clear, No accessory muscle use Neck: supple Cardiac/Chest: tachycardia, No systolic murmur Extremities: No pedal edema Skin: signs of IVDA Neuro/Psych: alert, normal mood/affect, oriented x 3 - Line/s LUE PICC Lines: No drainage, No erythema - Time Spent With Patient Time Spent with Patient: greater than 25 minutes Time Spent with Patient: Greater than 25 minutes spent on this patients care, greater than 50% of time spent counseling, educating, and coordinating care regarding the above mentioned plan. ICD10 Worksheet Patient Problems: Problems Problem Status Onset MSSA bacteremia Acute Sepsis Acute Urinary tract infection Acute Chest pain Acute Mediastinal mass Acute Pleural effusion Acute Pneumonia Acute
--- NOTE | 2018-12-29 15:50 | HOSPPROG ---
Hospitalist Progress Note Assessment/Plan: 33 year old female with hodgkins lymphoma, Hep B, admitted with MSSA bacteremia. Will complete IV nafcillin on Sunday 12/31 then transition to oral bactrim. MSSA bacteremia: likely due to a picc line placed on 09/08. Patient has history of drug abuse which will hinder outpatient treatment. Echo obtained which shows no vegetations. CT showing mild epidural enhancement at C5/C6 but no abscess. Repeat imaging shows improvement Infectious Disease following. -today is day 12 of 14 of nafcillin. Will complete therapy on December 31 and transition to oral Bactrim -infectious Disease following -monitor of LFTs Costochondritis, cont with low dose Ibuprofen. Feels better pruritis: around picc line -cont benadryl cream Right basilic vein thrombophlebitis: warm compresses, NSAIDs Right Axillary and Subclavian acute DVT: Ultrasound on December 22 positive for acute upper extremity DVT. -on Lovenox and Coumadin initially -hold Coumadin and continue Lovenox in order to place a port for chemotherapy on Wednesday. Resume coumadin after Port placed. Meth abuse: smokes it. Used to use it via IV. Counseled on cessation at length, CM to assist. Tobacco dependence: gulshan patch Hodgkin's lymphoma: s/p 2 rounds ABVD; last Oct 2018 at [facility]. Transferring care to [facility]. consulted by oncology while here. -hematology following -discussed case with Hematology today, will plan for port placement on WednesdayDecember 30. -Port placement scheduled for Sunday 12/31. -follow up with oncology within 1 week of discharge to plan/start ABVD therapy. Chronic HBV: On Entercavir to prevent recurrence while on chemo. Serologies pending pain: scheduled tylenol and ibuprofen -prn oxycodone Chronic HCV, should be treated along with Hep B, but after acute illness resolved. Diet: regular DVT ppx: lovenox, hold Coumadin Fluids- PO Lytes- WNl Nutrition- regular Cor- Full Dispo- inpatient for MSSA bacteremia and acute DVT. Subjective: no complaints. Objective: Vital Signs Temp Pulse Resp BP Pulse Ox 36.9 C 87 18 124/90 H 95 12/29/18 15:38 12/29/18 15:38 12/29/18 15:38 12/29/18 15:38 12/29/18 15:38 Microbiology 12/24/18 14:15 Blood Culture - Final Blood Laboratory Results 12/29/18 06:00 12/29/18 06:00 12/28/18 12/29/18 12/30/18 05:59 05:59 05:59 Intake Total 2100 600 Balance 2100 600 PT 16.5 SEC (12.0-15.0) H 12/29/18 06:00 INR 1.31 (0.83-1.16) H 12/29/18 06:00 - Physical Exam Constitutional: no apparent distress, appears nourished, not in pain Eyes: PERRL, anicteric sclera, EOMI Ears, Nose, Mouth, Throat: moist mucous membranes, hearing normal, ears appear normal, no oral mucosal ulcers Cardiovascular: regular rate and rhythym, no murmur, rub, or gallop Respiratory: no respiratory distress, no rales or rhonchi, clear to auscultation Gastrointestinal: normoactive bowel sounds, soft, non-tender abdomen, no palpable masses Genitourinary: no bladder fullness, no bladder tenderness, no renal bruits Skin: no rashes or abrasions, no fluctuance, no induration Musculoskeletal: full muscle strength, no muscle tenderness, normal joint ROM Neurologic: AAOx3, sensation intact bilaterally Psychiatric: interacting appropriately, not anxious, not encephalopathic, thought process linear Lymph, Heme, Immunologic: no cervical LAD, no supraclavicular LAD ICD10 Worksheet Patient Problems: Problems Problem Status Onset MSSA bacteremia Acute Sepsis Acute Urinary tract infection Acute Chest pain Acute Mediastinal mass Acute Pleural effusion Acute Pneumonia Acute
--- NOTE | 2018-12-29 15:57 | SOAPPROG ---
SOAP Progress Note Assessment/Plan: Assessment: A/P: 33 yo woman partially treated classic (NS) Hodgkin's lymphoma. Admitted with MSSA bacteremia from PICC. * MSSA bacteremia with ?C5-C6 inflammatory process: on nafcillin, R PICC removed. Now has PICC on L. * St. IIB Hodgkins: partially treated at [facility]. She has new insurance effective 12/23/18 and would like to reestablish with Dr. Stacy to complete tx. She has only had one full cycle of ABVD so far. Last chemo was before 2017. She understands that she needs to get started again. She is to get a port placed on 30 DEC 2018. Anticipated discharge on 31 DEC 2018. She will need restaging with a PET/CT as an outpatient. * ?Hep. B: prior entecavir tx. * Hep C, untreated. Dr. Way following. Will probably get treatment s/p antibiotics and completion of chemo. * DVT R arm - on anticoagulation - she will need anticoagulation for 3-6 months * Social situation, drug abuse, homeless: Patient is in the process to obtain housing. She is currently planning on going back to the care home pending housing. * Pain under L breast/sternum - improving Plan: Abx per ID anticoagulation port - ABVD to resume as soon as infection felt to be cleared Restaging PET/CT as an outpatient Patient is nearing discharge. Please have her follow up in the office within 1 week of discharge for additional treatment planning Subjective: Feels Ok. Anxious to be discharged. Objective: Vital Signs Temp Pulse Resp BP Pulse Ox 36.9 C 87 18 124/90 H 95 12/29/18 15:38 12/29/18 15:38 12/29/18 15:38 12/29/18 15:38 12/29/18 15:38 Microbiology 12/24/18 14:15 Blood Culture - Final Blood Laboratory Results 12/29/18 06:00 12/29/18 06:00 12/27/18 12/28/18 12/29/18 23:59 23:59 23:59 Intake Total 1500 600 600 Balance 1500 600 600 PT 16.5 SEC (12.0-15.0) H 12/29/18 06:00 INR 1.31 (0.83-1.16) H 12/29/18 06:00 Physical Exam - Physical Exam General Appearance: no apparent distress Respiratory: lungs clear Cardiac/Chest: regular rate, rhythm Abdomen: non-tender, soft Lymphatic: no adenopathy (neck, axilla, groin bilaterally) ICD10 Worksheet Patient Problems: Problems Problem Status Onset MSSA bacteremia Acute Sepsis Acute Urinary tract infection Acute Chest pain Acute Mediastinal mass Acute Pleural effusion Acute Pneumonia Acute
--- NOTE | 2018-12-29 17:00 | ASMTCMCOM ---
CM Note CM Note Notes: Pts case discussed w/ Dr. Burt and Dr. Foss. CM met w/ pt and provided list of psychiatric nurse practitioners, the phone number for [facility] and the phone number for [facility] to sign up for a support group. Pt is requesting for medical respite. CM spoke to Lizzeth about this case. Pt will most likely need to d/c with a port for chemo. NUSRAT spoke to Carmen Julian (P#: [phone]). Carmen reports that pt is on a housing list. Carmen reports that she cannot think of any respite facilities in [place]. CM to follow. Date Signed: 12/29/2018 05:00 PM Electronically Signed By:ANAY Aguirre
[2018-12-29] MEDS: MELATONIN 3 MG TAB PO SCH (21:04)
[2018-12-29] MEDS: LORazepam 0.5 MG TAB PO PRN (23:24)
[2018-12-30] MEDS: NAFCILLIN SODIUM 2 GM in D5W 100 ML IV SCH ×6 (02:36→21:52)
[2018-12-30] MEDS: NICOTINE 21 MG/24 HR PATCH TD SCH (09:58)
[2018-12-30] MEDS: FAMOTIDINE 20 MG TAB PO SCH (10:01)
[2018-12-30] MEDS: ESCITALOPRAM OXALATE 10 MG TAB PO SCH (10:01)
[2018-12-30 10:03] LABS: INR 1.14 (0.83-1.16); PROTIME(PATIENT) 14.8 SEC (12.0-15.0)
[2018-12-30] MEDS: ENTECAVIR 0.5 MG PO SCH (10:03)
[2018-12-30] MEDS: ENOXAPARIN 100 MG/ML SYR SC SCH (10:29)
--- NOTE | 2018-12-30 10:44 | PCMIDPN ---
Assessment/Plan: 1. MSSA bacteremia secondary to PICC line infection with concomitant cervical epidural inflammatory changes: As outlined previously by my colleagues, stop date for nafcillin is tomorrow, at which point she will transition to oral Bactrim to complete 2 additional weeks of therapy; stop date January 14. Port to be placed today. 2. Chronic hepatitis-C: Will start therapy after chemotherapy has been completed. Will need hepatitis a vaccine after chemotherapy as well. 3. Hepatitis-B core antibody positive: I called [facility] ([phone]) and spoke to their immunology lab. They verified that patient's hepatitis-B core total antibody was positive on September 22. Hepatitis-B surface antigen was negative, as was surface antibody and hepatitis B quantitative DNA. I spoke with Dr. Edgar Paz, Nursing Program Director at who agreed that patient should remain on Entecavir as is. Patient likely lost core antibody (is negative in our lab) 2/2 previous chemotherapy, and this negative data point should not loom changer. Over 25 min spent with this patient today. Subjective: Patient is in decent spirits. No real complaints. Having port placed today. Objective: Nafcillin 2 g IV q.4 hours, stop date tomorrow, with plans to transition to oral Bactrim No fevers Vital Signs Temp Pulse Resp BP Pulse Ox 36.3 C 82 16 116/70 94 12/30/18 08:00 12/30/18 08:00 12/30/18 08:00 12/30/18 08:00 12/30/18 08:00 Microbiology 12/24/18 16:20 Blood Culture - Final Blood 12/24/18 14:15 Blood Culture - Final Blood Laboratory Results 12/29/18 06:00 12/29/18 06:00 12/29/18 12/30/18 12/31/18 05:59 05:59 05:59 Intake Total 600 480 Balance 600 480 No new microbiology - Physical Exam General Appearance: alert, no apparent distress EENT: pharynx normal, No thrush Respiratory: lungs clear Cardiac/Chest: regular rate, rhythm Extremities: other (Line right upper extremity looks fine with no erythema, arm swelling or other.) Skin: No rash, No embolic lesions ICD10 Worksheet Patient Problems: Problems Problem Status Onset MSSA bacteremia Acute Sepsis Acute Urinary tract infection Acute Chest pain Acute Mediastinal mass Acute Pleural effusion Acute Pneumonia Acute
[2018-12-30] MEDS ORDERED: BUPIVACAINE 0.5% 30 ML SDV ONE (11:27)
--- NOTE | 2018-12-30 11:40 | PDANEPAE ---
ANE History of Present Illness Lymphoma ANE Past Medical History - Pulmonary History Hx Oxygen in Use at Home: No Hx Sleep Apnea: No Sleep Apnea Screening Result - Last Documented: Negative - Endocrine History Hx Diabetes: No - Neurological & Psychiatric Hx Neurological / Psychiatric History Comment: Hx drug abuse - Cancer History Hx Cancer: Yes Cancer History Comment: Hodgkin lymphoma - Chronic Pain History Chronic Pain: Yes ANE Review of Systems Review of Systems: ANE Patient History - Allergies Allergies/Adverse Reactions: amoxicillin [From Augmentin] Allergy (Verified 09/17/18 07:45) azithromycin Allergy (Verified 09/17/18 07:45) clavulanic acid [From Augmentin] Allergy (Verified 09/17/18 07:45) - Home Medications Home Medications: Docusate Sodium [Stool Softener] 100 mg PO DAILY PRN 12/15/18 [Last Taken Unknown] Entecavir [Baraclude] 0.5 mg PO DAILY 12/15/18 [Last Taken 3 Weeks Ago ~11/24/18 ] Ibuprofen [Motrin (*)] 600 mg PO Q6H PRN 12/15/18 [Last Taken 12/15/18] Ondansetron Odt [Zofran Odt 4 mg (*)] 4 mg PO Q4 PRN 12/15/18 [Last Taken Unknown] - NPO status NPO Since - Liquids (Date): 12/30/18 NPO Since - Liquids (Time): 00:01 NPO Since - Solids (Date): 12/30/18 NPO Since - Solids (Time): 00:01 - Smoking Hx Smoking Status: Current every day smoker - Alcohol Use Alcohol Use: Sober ANE Labs/Vital Signs - Labs Result Diagrams: 12/29/18 06:00 12/29/18 06:00 - Vital Signs Blood Pressure: 116/70 Heart Rate: 82 Respiratory Rate: 16 O2 Sat (%): 94 Height: 165.1 cm Weight: 93.9 kg ANE Physical Exam - Airway Neck exam: FROM Mallampati Score: Class 2 Mouth exam: normal dental/mouth exam - Pulmonary Pulmonary: no respiratory distress - Cardiovascular Cardiovascular: regular rate and rhythym - ASA Status ASA Status: III ANE Anesthesia Plan Anesthesia Plan: MAC (Concerned about ant medistinal mass and potential airway problems. Plan minimial sedation. Will have ET ready.)
[2018-12-30] MEDS ORDERED: LR 1,000 ML IV ONE (11:45)
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
--- NOTE | 2018-12-30 11:58 | SOAPPROG ---
SOAP Progress Note Assessment/Plan: Assessment/plan: 33 y/o F admitted with MSSA bacteremia from PICC line. Hodgkin's lymphoma. Port placement scheduled for Wednesday. All risks and options discussed. R axillary and subclavian DVT. Hold coumadin until after surgery. Ok to have lovenox until day of surgery. Hep B and Hep C positive Meth abuse. Appreciate CM input. S: No complaints O: Alert Afebrile RRR CTAB, no increased WOB Abdomen: soft, nontender, nondistended 12/29/18 11:29 12/30/18 11:56 Discussed risks and options. Pt would like to proceed with port placement today. Will attempt placement on L chest. Ok to restart coumadin this evening and lovenox tomorrow. Objective: Vital Signs Temp Pulse Resp BP Pulse Ox 36.3 C 82 16 116/70 94 12/30/18 08:00 12/30/18 11:41 12/30/18 11:41 12/30/18 11:41 12/30/18 11:41 Microbiology 12/24/18 16:20 Blood Culture - Final Blood 12/24/18 14:15 Blood Culture - Final Blood Laboratory Results 12/29/18 06:00 12/29/18 06:00 12/29/18 12/30/18 12/31/18 05:59 05:59 05:59 Intake Total 600 480 Balance 600 480 PT 14.8 SEC (12.0-15.0) 12/30/18 09:35 INR 1.14 (0.83-1.16) 12/30/18 09:35 ICD10 Worksheet Patient Problems: Problems Problem Status Onset MSSA bacteremia Acute Sepsis Acute Urinary tract infection Acute Chest pain Acute Mediastinal mass Acute Pleural effusion Acute Pneumonia Acute
[2018-12-30] MEDS ORDERED: VANCOMYCIN HCL/NORMAL SALINE 250 ML IV ONE (12:00)
[2018-12-30] MEDS ORDERED: PROPOFOL 200 MG/20 ML VIAL ONE ×2 (12:06→12:07)
[2018-12-30] MEDS ORDERED: ONDANSETRON 4 MG/2 ML VIAL IVP PRN (12:38)
[2018-12-30] MEDS ORDERED: fentaNYL 100 MCG/2 ML INJ IVP PRN (12:38)
[2018-12-30] MEDS ORDERED: NALOXONE HCL 0.4 MG/ML INJ IVP PRN (12:38)
--- NOTE | 2018-12-30 13:00 | POSTANESTH ---
Post Anesthetic Evaluation Cardiovascular Status: Normal, Stable Respiratory Status: Normal, Stable Level of Consciousness/Mental Status: Can Participate in Eval Pain Control: Adequate, Prn Tx Ordered Nausea/Vomiting Control: Adequate, Prn Tx Ordered Complications Possibly Related to Anesthesia: None Noted
[2018-12-30] MEDS: oxyCODONE IR 5 MG TAB PO PRN (13:57)
--- NOTE | 2018-12-30 14:40 | SOAPPROG ---
SOAP Progress Note Assessment/Plan: Assessment: A/P: 33 yo woman partially treated classic (NS) Hodgkin's lymphoma. Admitted with MSSA bacteremia from PICC. * MSSA bacteremia with ?C5-C6 inflammatory process: on nafcillin, R PICC removed. Now has PICC on L. * St. IIB Hodgkins: partially treated at [facility]. She has new insurance effective 12/23/18 and would like to reestablish with Dr. Stacy to complete tx. She has only had one full cycle of ABVD so far. Last chemo was before 2017. She understands that she needs to get started again. She is to get a port placed on 30 DEC 2018. Anticipated discharge on 31 DEC 2018. She will need restaging with a PET/CT as an outpatient. * ?Hep. B: prior entecavir tx. * Hep C, untreated. Dr. Way following. Will probably get treatment s/p antibiotics and completion of chemo. * DVT R arm - on anticoagulation - she will need anticoagulation for 3-6 months * Social situation, drug abuse, homeless: Patient is in the process to obtain housing. She is currently planning on going back to the care home pending housing. * Pain under L breast/sternum - improving Plan: Abx per ID anticoagulation port - placed today ABVD to resume as soon as infection felt to be cleared Restaging PET/CT as an outpatient Patient is nearing discharge. Please have her follow up in the office within 1 week of discharge for additional treatment planning. I'll sign off for now. Subjective: Happy with port. Looking forward to discharge Objective: Vital Signs Temp Pulse Resp BP Pulse Ox 36.9 C 100 18 153/79 H 95 12/30/18 13:57 12/30/18 13:57 12/30/18 13:57 12/30/18 13:57 12/30/18 13:57 Microbiology 12/24/18 16:20 Blood Culture - Final Blood 12/24/18 14:15 Blood Culture - Final Blood Laboratory Results 12/29/18 06:00 12/29/18 06:00 12/28/18 12/29/18 12/30/18 23:59 23:59 23:59 Intake Total 600 1080 620 Output Total 5 Balance 600 1080 615 PT 14.8 SEC (12.0-15.0) 12/30/18 09:35 INR 1.14 (0.83-1.16) 12/30/18 09:35 Physical Exam - Physical Exam General Appearance: alert, no apparent distress Respiratory: lungs clear Cardiac/Chest: regular rate, rhythm Skin: normal color Neuro/Psych: alert, normal mood/affect, oriented x 3 ICD10 Worksheet Patient Problems: Problems Problem Status Onset MSSA bacteremia Acute Sepsis Acute Urinary tract infection Acute Chest pain Acute Mediastinal mass Acute Pleural effusion Acute Pneumonia Acute
[2018-12-30] MEDS ORDERED: WARFARIN SODIUM 5 MG TAB PO ONE (16:00)
--- NOTE | 2018-12-30 17:13 | HOSPPROG ---
Hospitalist Progress Note Assessment/Plan: * MSSA sepsis due to PICC -complete IV nafcillin today - DC on oral Bactrim per ID * Epidural enhancement C5/C6 -no abscess - should improve with medical therapy * Hodgkin's lymphoma -to restart chemo as outpatient ALEKSANDR - d/w Dr. Dutton -port placement today * RUE DVT -Lovenox transition to warfarin * h/o IVDA * Hep B core positive -d/w Dr. Lamas - continue Entecavir * Hep C -outpatient follow-up for treatment * Depression -continue Lexapro per Dr. Foss recommendation Subjective: No new complaints Objective: Vital Signs Temp Pulse Resp BP Pulse Ox 36.4 C 109 H 18 118/67 96 12/30/18 16:00 12/30/18 16:00 12/30/18 16:00 12/30/18 16:00 12/30/18 16:00 Microbiology 12/24/18 16:20 Blood Culture - Final Blood 12/24/18 14:15 Blood Culture - Final Blood Laboratory Results 12/29/18 06:00 12/29/18 06:00 12/29/18 12/30/18 12/31/18 05:59 05:59 05:59 Intake Total 600 480 620 Output Total 5 Balance 600 480 615 PT 14.8 SEC (12.0-15.0) 12/30/18 09:35 INR 1.14 (0.83-1.16) 12/30/18 09:35 US - acute axillary and subclavian DVT - Physical Exam Constitutional: no apparent distress, appears nourished, not in pain Cardiovascular: regular rate and rhythym, no murmur, rub, or gallop Respiratory: no respiratory distress, no rales or rhonchi, clear to auscultation Gastrointestinal: normoactive bowel sounds, soft, non-tender abdomen, no palpable masses Skin: no rashes or abrasions, no fluctuance, no induration Neurologic: AAOx3, sensation intact bilaterally Psychiatric: interacting appropriately, not anxious, not encephalopathic, thought process linear ICD10 Worksheet Patient Problems: Problems Problem Status Onset Chest pain Acute Pneumonia Acute Pleural effusion Acute Mediastinal mass Acute Sepsis Acute Urinary tract infection Acute MSSA bacteremia Acute
--- NOTE | 2018-12-30 17:20 | ASMTCMCOM ---
CM Note CM Note Notes: CM attempted to speak with pt regarding discharge plan for tomorrow, pt not in room. CM discussed plan with MD and Oncology MD and pt is going to be linked with Nurse Navigator at [employer] to help pt's stressors related to housing. Pt continues to be on list for housing. Plan: [facility] Date Signed: 12/30/2018 05:20 PM Electronically Signed By:ANAY Rosen
[2018-12-30] MEDS: IBUPROFEN 200 MG TAB PO PRN (18:21)
[2018-12-31] MEDS ORDERED: ESCITALOPRAM OXALATE 10 MG TAB PO SCH
[2018-12-31] MEDS ORDERED: WARFARIN SODIUM 5 MG TAB PO SCH
[2018-12-31] MEDS ORDERED: ENOXAPARIN 100 MG/ML SYR SC SCH
[2018-12-31] MEDS: IBUPROFEN 200 MG TAB PO PRN ×2 (00:38→08:27)
[2018-12-31] MEDS: NAFCILLIN SODIUM 2 GM in D5W 100 ML IV SCH ×3 (02:10→09:50)
[2018-12-31] MEDS: oxyCODONE IR 5 MG TAB PO PRN (02:25)
[2018-12-31 04:59] LABS: INR 1.09 (0.83-1.16); PROTIME(PATIENT) 14.3 SEC (12.0-15.0)
[2018-12-31 07:06] VITALS: BP 121/69
[2018-12-31] MEDS: NICOTINE 21 MG/24 HR PATCH TD SCH (08:28)
[2018-12-31] MEDS: ESCITALOPRAM OXALATE 10 MG TAB PO SCH (08:28)
[2018-12-31] MEDS: ENOXAPARIN 100 MG/ML SYR SC SCH ×2 (08:29→10:50)
[2018-12-31] MEDS: ENTECAVIR 0.5 MG PO SCH (10:18)
--- NOTE | 2018-12-31 14:02 | ASDISCHSUM ---
Discharge Information Plan Status:Homeless/Long Term Medically Cleared to Leave:12/30/2018 Discharge Date:12/30/2018 CM D/C Disposition:Home, Routine, Self-Care ADT D/C Disposition:Home, Routine, Self-Care Projected Discharge Date:01/01/2019 12:00 AM Transportation at D/C:Medicaid Transportation Discharge Delay Reason: Follow-Up Date:01/01/2019 12:00 AM Discharge Slot: Final Diagnosis:bacteremia sepsis, DVT, Hep B/C+ Placement Information Patient Contact Information Contact Name:RUBEN Relationship:Other Address:[address] Work Phone: [facility]:[place] Alternate Phone: [facility]/Zip Code:[place] [address] Email: Financial Information Financial Class:Medicaid Primary Plan Desc:[facility] MEDICAID CHOICE Primary Plan Number:[id number] Secondary Plan Desc: Secondary Plan Number: Assessment Information LACE LACE Acuity / Level of Answers: Yes Care: Did the patient have an inpatient admission? Comorbidities - select Answers: Moderate or severe liver all that apply or renal disease Opioid dependence / Chronic pain Other Notes: Hodgkins Lymphoma # of Emergency department Answers: 3-4 visits in the last 6 months Social determinants Answers: History of substance abuse (ETOH, street drugs, prescription drugs, etc.) Score: 18 Date Signed: 12/16/2018 05:44 PM Electronically Signed By:Ronda Renee RN [facility] CM Progress Note CM Note CM Note Notes: Pt admitted to hospital for general malaise. Blood cxs show Bacteremia, possible PICC site. Pt has hx of Hodgkins Lymphoma, was getting treatment for it but d/t to insurance difficulties, went for a month with PICC in but no treatment and has admitted to smoking meth but adamant about not injecting anything. Pt was homeless but now lives with boyfriend, dc needs uncertain, NUSRAT w/f. DC Plan: TBD Date Signed: 12/16/2018 05:49 PM Electronically Signed By:Ronda Renee RN [facility] CM Progress Note CM Note NUSRAT Note Notes: Referred patient to [facility] so they can help her with support services in the community and help her get her Medicaid transferred if she is going to stay here in [place]. ([place] Medicaid) Patient is now living with her boyfriend here in [place]. CM will follow. Date Signed: 12/20/2018 11:56 AM Electronically Signed By:Brigette Vázquez LCSW [facility] NUSRAT Progress Note CM Note NUSRAT Note Notes: Patient got a PICC line yesterday. She is going to require IV ABX. Patient is a meth user though she states she has not used recently. Her tox screen however, was positive. Awaiting plan of care with nafcillin therapy to determine d/c needs. CM will follow. Date Signed: 12/21/2018 01:45 PM Electronically Signed By:Brigette Vázquez LCSW [facility] CM Progress Note CM Note CM Note Notes: Met w patient re: her [facility] Medicaid. Per patient, she called [employer] and updated info to have Medicaid coverage switched to [facility]. This new coverage was to begin effective today, 12/23. I informed our Medicaid specialist and financial counselors of the update,. Now, patient will get primary care serverices at [facility], and her oncologist will be Dr Stacy at [facility]. She will f/u with any other specialists that are recommended. Likely here through 12/31 for IV abx d/t hx of IVDU. Case Management to follow. Date Signed: 12/23/2018 10:21 AM Electronically Signed By:Tammy Hubbard RN [facility] Progress Note CM Note CM Note Notes: CM met with patient and [facility] homeless liaison Carmen Julian (YOBANI in back of chart). Carmen shared the patient is currently homeless and shared she is currently in process of obtaining housing. Carmen states Alaina has been processed and moved up on the list, she has the required paperwork submitted but will not have a place to discharge to at projected discharge date in 1 week. NUSRAT inquired about patient PCP, member states she is now able to connect with Ebony, a new provider at [facility]. NUSRAT shared the member has access to Care Management through [facility] as they are an Enhanced Clinical Partner. NUSRAT also shared info about [facility], gave member a flier with her state ID written on the removable card. We discussed a time line around follow ups, the patient states she understands she will likely discharge on 12/31-01/01. She states she will schedule an appointment with [facility]02 or so to follow up from the inpatient hospitalization and also for anti-coagulation monitoring. The patient will also call to schedule a follow up with [facility], Dr. Stacy for non-hodgkins lymphoma. CM inquired about mental health support, patient states she is considering connecting with [facility] and can also connect to mental health support through [facility]. CM encouraged the member connect with [facility] as they have a variety of support services. Carmen and the patient discussed the possibility of the patient returning to the [facility] when she discharges, patient states she believes she will be able to return and is under the impression her locker is being held for her while she is hospitalized. Patient mentioned difficulty/concern getting to medical appointments. CM asked the patient if she knows about [facility] she states she does but when she tried to call them last they said she needed additional information. CM to submit Medical Certificate of Transportation online and encouraged patient to call [facility] in about a week to confirm the form has been processed, if there are issues she can request support from her support team at [facility]. Member mentioned interest in applying for disability, CM to send referral to [facility] and also to [facility] CM to share the patient is interested in learning more about her options. CM to follow. D/C Plan: [facility] Date Signed: 12/25/2018 03:47 PM Electronically Signed By:Marilee Grande [facility] Progress Note CM Note CM Note Notes: Pt here for IV abx, will finish on Wednesday and transition to orals. Pt has hx of Hodgkins Lymphoma that was partially treated and will get a port placed for chemo treatment. Matters are complicated because pt smokes meth, CM to discuss resources for sobriety. DC Plan: Independent Date Signed: 12/28/2018 06:06 PM Electronically Signed By:Ronda Renee RN [facility] Progress Note CM Note CM Note Notes: Pts case discussed w/ Dr. Burt and Dr. Foss. CM met w/ pt and provided list of psychiatric nurse practitioners, the phone number for [facility] and the phone number for [facility] to sign up for a support group. Pt is requesting for medical respite. NUSRAT spoke to Lizzeth about this case. Pt will most likely need to d/c with a port for chemo. NUSRAT spoke to Carmen Julian (P#: [phone]). Carmen reports that pt is on a housing list. Carmen reports that she cannot think of any respite facilities in [place]. NUSRAT to follow. Date Signed: 12/29/2018 05:00 PM Electronically Signed By:ANAY Aguirre [facility] NUSRAT Progress Note CM Note CM Note Notes: NUSRAT attempted to speak with pt regarding discharge plan for tomorrow, pt not in room. NUSRAT discussed plan with MD and Oncology MD and pt is going to be linked with Nurse Navigator at [employer] to help pt's stressors related to housing. Pt continues to be on list for housing. Plan: [facility] Date Signed: 12/30/2018 05:20 PM Electronically Signed By:ANAY Rosen Case Management Discharge Plan Note Case Management Discharge Discharge Order Complete? Answers: Yes Patient to Obtain Answers: via MAP Medications Transportation Arranged Answers: [employer] Transport will Pick (Date 12/31/2018 12:00 AM & Time) Family Notified Answers: Yes Notes: in room Discharge Comments Notes: Spoke with pt and boyfriend in the room. Both complained at length about lack of CM support and follow through and hospitalists' care and lack of communication with her and each other. CM asked pt to focus on discharge plan and not to complain about colleagues as it is out of this CM's control to change past behavior and would like to focus on solutions going forward. CM left the room to allow both parties to calm down and returned to room 20 min later. Pt requested no further CM support. Pt then agreed for CM to arrange to MAP discharge meds through Wednesday when pt would be returning to [facility] for lab draw and follow up. Remainder of prescription submitted to [facility] for pt to mushroom picker on Wednesday. Pt denied needing bed reserved at senior living, stating she is already a client and can just show up, but had other plans for staying the night. Pt also declined [facility] transport requesting two bus passes instead. CM stated we could provide 1 bus pass. No further CM needs noted at this time. Date Signed: 12/31/2018 02:01 PM Electronically Signed By:Carmen Nair Intervention Information
--- NOTE | 2018-12-31 17:25 | GDS ---
[f rep st] DISCHARGE SUMMARY DISCHARGE DIAGNOSES: 1. Methicillin-sensitive Staphylococcus aureus sepsis due to PICC line. 2. Epidural enhancement at C5-C6 without epidural abscess. 3. Hodgkin lymphoma. 4. Right upper extremity deep vein thrombosis. 5. History of IV drug abuse. 6. Hep B core positive. 7. Hep C. 8. Depression. HISTORY: Alaina is a 33-year-old female with a diagnosis of Hodgkin lymphoma. She started chemother apy at [facility], but then did not complete treatment course and has re-presented to [facility] to establish care and finish treatment for the lymphoma. She presented feeling ill with generalize malaise. She had a PICC line in place since August even though it was not currently being used. She is homeless. She has a history of IV drug abuse. She denied ever using the PICC l ine to shoot drugs. She was doing her PICC line care with duct tape. She was found to have MSSA sagrario teremia. Infectious Disease was consulted. She completed a course of IV nafcillin while inpatient. She will discharge on oral Bactrim to complete 2 more weeks. Her PICC line was removed and a port w as placed surgically prior to discharge. She had some cervical neck pain. An MRI showed epidural en hancement at C5-C6, but no epidural abscess. So plan is medical therapy. Dr. Dutton saw her here i n consultation and plans to start chemotherapy as an outpatient ALEKSANDR. She was also found to have a right upper extremity DVT, probably due to the PICC line. She will disc harge on Lovenox with a transition to warfarin. We will have her INR checked 2-3 days post discharge either Dr. Dutton's office or [facility]. She has known hep B core positivity from [facility]. She is on entecavir. Per Infectious Disease s, this should be continued. She also has hep C. she has not yet been treated. This should also be treated after her cancer therapy. For her psychiatric issues, Dr. Foss saw her in consultation. Recommended low-dose Lexapro 5 mg p. o. daily. DISCHARGE MEDICATIONS: Please see computer records for full detailed list. New medications: 1. Lovenox 90 mg subcu twice daily until INR is greater than 2. 2. Lexapro 5 mg p.o. daily. 3. Bactrim DS 2 tabs p.o. twice daily for 2 more weeks. 4. Warfarin 5 mg p.o. daily. ADDITIONAL DISCHARGE INSTRUCTIONS: 1. INR Wednesday or Wednesday either at [facility] or [facility]. 2. Follow up with Infectious Disease, Dr. Ferreira on January 05 at 1 p.m. 3. Follow up with Dr. Dutton as scheduled to initiate chemotherapy. Greater than 30 minutes' time was spent arranging this discharge. Patient seen and examined by me on the day of discharge. /[id number]/[id number]
[2018-12-31] MEDS ORDERED: SULFAMETHOX/TMP 800/160 MG 1 TAB PO SCH ×2 (21:00)
--- NOTE | 2019-01-11 18:48 | GOP ---
[f rep st] OPERATIVE REPORT DATE OF OPERATION: 12/30/2018 SURGEON: Herrera Frey MD PREOPERATIVE DIAGNOSIS: Hodgkin disease. POSTOPERATIVE DIAGNOSIS: Hodgkin disease. PROCEDURE PERFORMED: Left subclavian port placement with fluoroscopic guidance. FINDINGS: The patient was found to have good position and good flow of the catheter. ESTIMATED BLOOD LOSS: Negligible. Taken to the recovery room in good condition. No complications. DESCRIPTION OF PROCEDURE: The patient was taken to the operating room where she received satisfactor y IV sedation monitored anesthesia care by Dr. Gutiérrez. She was placed in the supine position a nd prepped and draped in the usual sterile fashion. She was then placed in Trendelenburg. A direct stick was made in the left subclavian vein. A guidewire was introduced. Position was confirmed with fluoroscopy. A subcu port was made in the second intercostal space. Port tubing was passed from th at pocket to the subclavian insertion site and was trimmed to the appropriate length using fluoroscop ic guidance and then introduced into the right atrium via the introducer sheath and dilator system. Hemostasis was assured. The port was secured to the fascia with 3-0 Vicryl. The pocket was closed w ith 3-0 Vicryl subcu, 4-0 Monocryl subcuticular stitch for the skin and the entrance site was closed with 4-0 Monocryl subcuticular suture. All wounds were infiltrated with 0.5% Marcaine. /[id number]/MODL
== END 2018-12-31 15:44 | disposition home or self-care (01) | DRG 206 ==
LOC: EDUNIT# → OBSVTOIN 16:28 → F3E 17:52
PROVIDERS: ADMIT Internal Medicine; ATTEND Internal Medicine
PROC: 02HV33Z Insertion of Infusion Device into Superior Vena Cava, Percutaneous Approach (ICD-10-PCS; 2018-12-22)
PROC: 0JH63XZ Insertion of Tunneled Vascular Access Device into Chest Subcutaneous Tissue and Fascia, Percutaneous Approach (ICD-10-PCS; principal; 2018-12-30 12:30)
DX: T82.7XXA Infection and inflammatory reaction due to other cardiac and vascular devices, implants and grafts, initial encounter (principal); A41.01 Sepsis due to Methicillin susceptible Staphylococcus aureus; G95.0 Syringomyelia and syringobulbia; T82.868A Thrombosis due to vascular prosthetic devices, implants and grafts, initial encounter; C81.90 Hodgkin lymphoma, unspecified, unspecified site; B19.10 Unspecified viral hepatitis B without hepatic coma; B18.2 Chronic viral hepatitis C; E03.9 Hypothyroidism, unspecified; N39.0 Urinary tract infection, site not specified; F15.10 Other stimulant abuse, uncomplicated; F43.23 Adjustment disorder with mixed anxiety and depressed mood; F17.200 Nicotine dependence, unspecified, uncomplicated; Z59.0 Homelessness
CPT/HCPCS: 80307; 86704-90; 86708-90; 87517-90; 96365; A9585; C1751; C1788; G0480; J0690; J0696; J1642; J1650; J1885; J1956; J2060; J2704; J2997; J3370; Q9967

== ENCOUNTER 2019-01-10 16:27 | Emergency (ER) | payer MEDICAID ==
[2019-01-10 17:24] LABS: PLATELET COUNT 299 10^3/uL (150-400)
--- NOTE | 2019-01-10 17:39 | EDPHY ---
H & P Stated Complaint: DX DVT R ARM NOW WITH CP/SOB AND LOW PT/INR Time Seen by Provider: 01/10/19 17:01 HPI/ROS: CHIEF COMPLAINT: Shortness of breath, chest pain HISTORY OF PRESENT ILLNESS: A 33-year-old female with Hodgkin's disease presents with chest pain and shortness of breath. 2 weeks ago, she was diagnosed with a right axillary vein thrombosis and placed on Coumadin. 2 days ago, onset of left-sided chest pain. The chest pain is moderate, increases with deep inspiration and is associated with exertional shortness of breath. She went to the cancer clinic today and INR was 1. Sent here for evaluation for possible pulmonary embolism. REVIEW OF SYSTEMS: complete 10 point ROS reviewed and is negative except for the noted elements in the HPI Source: Patient - Personal History LMP (Females 10-55): 15-21 Days Ago Current Tetanus Diphtheria and Acellular Pertussis (TDAP): Yes - Medical/Surgical History Hx Asthma: No Hx Chronic Respiratory Disease: No Hx Diabetes: No Hx Cardiac Disease: No Hx Renal Disease: No Hx Cirrhosis: No Hx Alcoholism: No Hx HIV/AIDS: No Hx Splenectomy or Spleen Trauma: No Other PMH: ABEBE, HYPERTHYROID, meth abuse, cleft surgery, mediastinal mass, Former IV drug use(last use 4 months ago 04/2018) Hep C Hodgekins Lymphoma - Social History Smoking Status: Current every day smoker Alcohol Use: Sober Drug Use: Other (Prior history of IVDA) - Physical Exam Exam: General Appearance: Alert, pleasant and talkative Eyes: Pupils equal and round, no conjunctival pallor or injection ENT, Mouth: Mucous membranes moist Neck: Normal inspection Respiratory: Lungs are clear to auscultation Cardiovascular: Regular rate and rhythm Gastrointestinal: Abdomen is soft and nontender Neurological: A&O, nonfocal, normal gait Skin: Warm and dry, no rash Extremities: Right upper extremity swelling Psychiatric: Mood and affect normal Constitutional: Initial Vital Signs Temperature (C) 36.7 C 01/10/19 16:39 Heart Rate 80 01/10/19 16:39 Respiratory Rate 18 01/10/19 16:39 Blood Pressure 129/89 H 01/10/19 16:39 O2 Sat (%) 97 01/10/19 16:39 O2 Delivery Mode Room Air Allergies/Adverse Reactions: amoxicillin [From Augmentin] Allergy (Verified 01/10/19 16:36) azithromycin Allergy (Verified 01/10/19 16:36) clavulanic acid [From Augmentin] Allergy (Verified 01/10/19 16:36) Home Medications: Medication Instructions Recorded Docusate Sodium [Stool Softener] 100 mg PO DAILY PRN 12/15/18 Ondansetron Odt [Zofran Odt 4 mg 4 mg PO Q4 PRN 12/15/18 (*)] Escitalopram Oxalate [Lexapro 10 5 mg PO DAILY #30 tab 12/31/18 MG] Sulfamethox/Tmp 800/160 mg 2 ea PO BID #120 tab 12/31/18 [Bactrim DS] Warfarin Sodium [Coumadin 5MG (*)] 5 mg PO DAILY16 #30 tab 12/31/18 Enoxaparin [Lovenox 100 MG (*)] 100 mg SQ DAILY #10 syr 01/10/19 Medical Decision Making - Diagnostics EKG Interpretation: EKG interpreted by me reveals normal sinus rhythm, rate 82, no ST or T segment changes. Interpretation: Normal EKG Imaging Results: Chest/Thorax CTA 01/10/19 17:36 Impression: 1. No definite pulmonary thromboemboli. 2. No aortic aneurysm or dissection. 3. Linear atelectasis in the anterior segment of the right upper lobe without definite pneumonia. 4. 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 Findings and recommendations discussed with Emergency Department physician, JACE SCHERER at 19:45 hour, 01/10/2019. Final report concurs with initial preliminary interpretation. A test result has been communicated to a licensed care provider and documented in the [facility] Critical Result system on 01/10/2019 19:45, Message ID [id number]. Extremity Venous Study 01/10/19 17:39 Impression: Persistent right axillary and right subclavian venous thrombosis ( similar in distribution to that seen on 12/22/2018) with trace "trickle" flow seen along the posterior margin of the right axillary vein. There is no evidence of new clot. Findings were discussed with JACE SCHERER MD at 18:40, on 01/10/2019. Imaging: Discussed imaging studies w/ call center agent Radiologist ED Course/Re-evaluation: Patient presents with chest pain and shortness of breath after recent diagnosis axillary vein thrombosis. She is currently taking Coumadin, but INR was subtherapeutic at 1.0 today in the Oncology Clinic. Pt's VS normal, including oxygen saturation. CTA chest and RUE sono ordered. Pt also relates that a friend of a PE recently and she is concerned about PE. CT pulmonary angiogram obtained and reveals no evidence of pulmonary embolism. Right upper extremity ultrasound reveals stable DVT. Lovenox 90 mg SQ given. Consulted Dr. Oropeza, will help arrange outpatient follow-up at the oncology clinic. Prescription for Lovenox 90 mg twice daily given. The patient will continue taking Coumadin 5 mg daily. Etiology of cp/SOB unclear, though no worrisome etiology found. May be secondary to anxiety regarding friend's , d/w pt, tends to agree given underlying anxiety, will return if sx worsen, any concerns. Differential Diagnosis: Differential diagnosis includes though it is not limited to pneumonia, pneumothorax, pulmonary embolism, aortic dissection, pericarditis, acute coronary syndrome. - Data Points Laboratory Results: Laboratory Results 01/10/19 17:00 01/10/19 17:00 Medications Given: Discontinued Medications Enoxaparin Sodium (Lovenox) 90 mg SC EDNOW ONE Stop: 01/10/19 20:31 Last Admin: 01/10/19 20:30 Dose: 90 mg Point of Care Test Results: Chemistry 01/10/19 17:08 POC Troponin I 0.00 ng/mL ng/mL (0.00-0.08) Departure - Departure Disposition: Home, Routine, Self-Care Clinical Impression: Axillary vein thrombosis Chest pain Qualifiers: Chest pain type: other chest pain Qualified Code(s): R07.89 - Other chest pain ; R07.8 - Other chest pain Condition: Good Instructions: Deep Vein Thrombosis (ED), Chest Pain (ED) Additional Instructions: Take Lovenox 90 mg subcu twice daily. Continue taking Coumadin 5 mg daily. Follow-up with Dr. Dutton in the office in 2 days for recheck. Referrals: Christiano Dutton MD [Primary Care Provider] - As per Instructions (Call to make an appointment.) Prescriptions: Enoxaparin [Lovenox 100 MG (*)] 100 mg SQ DAILY #10 syr
[2019-01-10] MEDS ORDERED: IOHEXOL 350mgI/ML (OMNIPAQUE) 150 ML BTL IV ONE (17:49)
[2019-01-10] MEDS ORDERED: ENOXAPARIN 80 MG/0.8 ML SYR SC ONE (20:06)
[2019-01-10] MEDS ORDERED: ENOXAPARIN 100 MG/ML SYR SC ONE (20:30)
[2019-01-10 20:39] VITALS: BP 117/78
--- NOTE | 2019-01-12 19:28 | CPEKG ---
Test Reason : OPEN Blood Pressure : / mmHG Vent. Rate : 082 BPM Atrial Rate : 082 BPM P-R Int : 149 ms QRS Dur : 085 ms QT Int : 381 ms P-R-T Axes : 067 069 057 degrees QTc Int : 445 ms Sinus rhythm Confirmed by Chelsea Bowden ([id number]) on 01/12/2019 7:28:18 PM Referred By: PHYSICIAN ED Confirmed By:Chelsea Bowden
== END 2019-01-10 20:43 | disposition home or self-care (01) ==
DX: I82.A11 Acute embolism and thrombosis of right axillary vein (principal); I82.B11 Acute embolism and thrombosis of right subclavian vein; R07.89 Other chest pain; E03.9 Hypothyroidism, unspecified; C81.90 Hodgkin lymphoma, unspecified, unspecified site
CPT/HCPCS: 84484-ER; J1642; J1650; Q9967